=== PATIENT | male | born 1970 | race African-American/Black ===

== ENCOUNTER 2017-04-26 15:09 | Inpatient (IN) | payer OTHER ==
[2017-04-26 17:31] VITALS: BMI 32.8
--- NOTE | 2017-04-26 19:35 | HP ---
COWS - Scale Resting Pulse: 0= [place] 80 or Below Sweatin=Flushed/Facial Moisture Restless Observation: 3= Extraneous Movement Pupil Size: 2= Moderately Dilated Bone or Joint Aches: 2= Severe Diffuse Aches Runny Nose/ Eye Tearin= Runny Nose/Eyes GI Upset > 30mins: 3= Vomiting/Diarrhea Tremor Observation: 2= Slight Tremor Visible Yawning Observation: 2= >3x During Session Anxiety or Irritability: 2=Irritable/Anxious Goose Flesh Skin: 0=Smooth Skin COWS Score: 20 CIWA Score - CIWA Score Nausea/Vomitin Muscle Tremors: 3 Anxiety: 3 Agitation: 3 Paroxysmal Sweats: 2 Orientation: 0-Oriented Tacttile Disturbances: 2-Mild Itch/Numbness/Burn Auditory Disturbances: 2-Mild Harshness/Frighten Visual Disturbances: 2-Mild Sensitivity Headache: 2-Mild CIWA-Ar Total Score: 22 Admission ROS BHS - HPI Chief Complaint: i am tired of using drugs and alcohol Allergies/Adverse Reactions: Allergies Allergy/AdvReac Type Severity Reaction Status Date / Time Penicillins Allergy Verified 04/27/17 01:11 seafood Allergy Mild Uncoded 04/27/17 01:11 History of Present Illness: this 46 years old male with heroin and alcohol dependence,seeking detox,last detox 2011 [facility] hypertension non compliance nicotine dependence longest period of sobriety 5 years Exam Limitations: No Limitations - Ebola screening Have you traveled outside of the country in the last 21 days: No Have you had contact with anyone from an Ebola affected area: No Have you been sick,other than usual withdrawal symptoms: No - Review of Systems Constitutional: Loss of Appetite, Malaise, Night Sweats, Changes in sleep, Unintentional Wgt. Loss, Other EENT: reports: Nose Congestion Respiratory: reports: No Symptoms reported Cardiac: reports: No Symptoms Reported GI: reports: Diarrhea, Nausea, Vomiting, Abdominal cramping : reports: No Symptoms Reported Musculoskeletal: reports: Back Pain, Muscle Pain Integumentary: reports: Dryness Endocrine: reports: No Symptoms Reported Hematology: reports: No Symptoms Reported Psychiatric: reports: No Sypmtoms Reported, Judgement Intact, Mood/Affect Appropiate Patient History - Patient Medical History Hx Anemia: No Hx Asthma: No Hx Chronic Obstructive Pulmonary Disease (COPD): No Hx Cancer: No Hx Cardiac Disorders: No Hx Congestive Heart Failure: No Hx Hypertension: Yes (BP: 147/94 non compliance) Hx Hypercholesterolemia: No Hx Pacemaker: No HX Cerebrovascular Accident: No Hx Seizures: No Hx Dementia: No Hx Diabetes: No Hx Gastrointestinal Disorders: No Hx Liver Disease: No Hx Genitourinary Disorders: No Hx Sexually Transmitted Disorders: No Hx Renal Disease (ESRD): No Hx Thyroid Disease: No Hx Human Immunodeficiency Virus (HIV): No (last 11/18 negative) Hx Hepatitis C: No Hx Depression: No Hx Suicide Attempt: No Hx Schizophrenia: No Other Medical History: no suicidal,no homicidal - Patient Surgical History Past Surgical History: No Hx Neurologic Surgery: No Hx Cataract Extraction: No Hx Cardiac Surgery: No Hx Lung Surgery: No Hx Breast Surgery: No Hx Breast Biopsy: No Hx Abdominal Surgery: No Hx Appendectomy: No Hx Cholecystectomy: No Hx Genitourinary Surgery: No Hx Section: No Hx Orthopedic Surgery: No - PPD History Previous Implant?: Yes Documented Results: Negative w/o proof Date: 05/07/11 Results: 0 mm PPD to be Administered?: Yes - Smoking Cessation Smoking history: Current every day smoker Have you smoked in the past 12 months: Yes Aproximately how many cigarettes per day: 20 Hx Chewing Tobacco Use: No Initiated information on smoking cessation: Yes 'Breaking Loose' booklet given: 04/26/17 - Substance & Tx. History Hx Alcohol Use: Yes Hx Substance Use: Yes Substance Use Type: Alcohol, Heroin Hx Substance Use Treatment: Yes ([facility] 2011) - Substances Abused Alcohol Route: Oral Frequency: Daily Amount used: Beer 6 cans, Liquor 1/2 pint Age of first use: 13 Date of Last Use: 04/26/17 Heroin Route: Inhalation Frequency: Daily Amount used: 15 bags Age of first use: 28 Date of Last Use: 04/26/17 Family Disease History - Family Disease History Family History: Denies Admission Physical Exam S - Vital Signs Vital Signs: Vital Signs - 24 hr 04/26/17 17:26 Temperature 97.8 F Pulse Rate 64 Respiratory 18 Rate Blood Pressure 147/94 - Physical General Appearance: Yes: Moderate Distress, Alcohol on Breath, Tremorous, Sweating, Anxious HEENTM: Yes: Normocephalic, LIBBY, Pharynx Normal Respiratory: Yes: Lungs Clear, Normal Breath Sounds, No Respiratory Distress Neck: Yes: Within Normal Limits, Supple, Trachea in good position Breast: Yes: Within Normal Limits Cardiology: Yes: Within Normal Limits, Regular Rhythm, Regular Rate, S1, S2 Abdominal: Yes: Within Normal Limits, Normal Bowel Sounds, Non Tender, Flat, Soft Genitourinary: Yes: Within Normal Limits Back: Yes: Within Normal Limits, Normal Inspection, Muscle Spasm Musculoskeletal: Yes: full range of Motion, Back pain, Joint Stiffness, Muscle Pain Extremities: Yes: Within Normal Limits, Normal Range of Motion, Tremors Neurological: Yes: horse wrangler II-XII NML intact, Fully Oriented, Alert, Motor Strength 5/5 Integumentary: Yes: Dry Lymphatic: Yes: Within Normal Limits - Diagnostic (1) Alcohol dependence with uncomplicated withdrawal Current Visit: Yes Status: Acute (2) Weight loss Current Visit: Yes Status: Acute (3) Nicotine dependence Current Visit: Yes Status: Acute Qualifiers: Nicotine product type: cigarettes Substance use status: in withdrawal Qualified Code(s): F17.213 - Nicotine dependence, cigarettes, with withdrawal (4) Essential hypertension Current Visit: Yes Status: Acute Cleared for Admission [facility] - Detox or Rehab [facility] Level of Care: Medically Managed Detox Regimen/Protocol: Methadone/Librium [facility] Breath Alcohol Content Breath Alcohol Content: 0 Urine Drug Screen - Results Drug Screen Negative: No Urine Drug Screen Results: CHANDRAKANT-Cocaine, OPI-Opiates
[2017-04-26] MEDS ORDERED: LOPERAMIDE HCL 2 MG CAPSULE PO PRN (19:44)
[2017-04-26] MEDS ORDERED: P-EPHED 60MG/TRIPROLIDI 2.5MG TABLET PO PRN (19:44)
[2017-04-26] MEDS ORDERED: MAG HYDROX/AL HYDROX/SIMETH 30 ML UNIT-DOSE CUP PO PRN (19:44)
[2017-04-26] MEDS ORDERED: IBUPROFEN 400 MG TABLET (FP) PO PRN (19:44)
[2017-04-26] MEDS ORDERED: NICOTINE POLACRILEX 2 MG GUM BC PRN (19:44)
[2017-04-26] MEDS ORDERED: chlordiazePOXIDE HCL 25 MG CAPSULE PO ONE (19:44)
[2017-04-26] MEDS ORDERED: MAGNESIUM CITRATE 300 ML BOTTLE PO PRN (19:44)
[2017-04-26] MEDS ORDERED: guaiFENesin/D-METHORPHAN HB 10 ML UNIT-DOSE CUPS PO PRN (19:44)
[2017-04-26] MEDS ORDERED: ACETAMINOPHEN 325 MG TABLET (FP) PO PRN (19:44)
[2017-04-26] MEDS ORDERED: MENTHOL/PHENOL 1 EACH UD MM PRN (19:44)
[2017-04-26] MEDS ORDERED: chlordiazePOXIDE HCL 25 MG CAPSULE PO PRN (19:44)
[2017-04-26] MEDS ORDERED: MAGNESIUM HYDROX 2400MG/30ML ORAL SUSPENSION 30 ML CUP PO PRN (19:44)
[2017-04-26] MEDS ORDERED: METHADONE HCL 10 MG TABLET (FOR DETOX USE ONLY) PO ONE ×2 (19:48→23:00)
[2017-04-26] MEDS ORDERED: CYCLOBENZAPRINE HCL 10 MG TABLET (FP) PO PRN (19:49)
[2017-04-26] MEDS: NICOTINE 21 MG/24 HOURS TOPICAL PATCH TD SCH (20:24)
[2017-04-26] MEDS: LISINOPRIL 20 MG TABLET (FP) PO SCH (20:26)
[2017-04-26] MEDS: cloNIDine HCL 0.1 MG TABLET PO SCH (22:28)
[2017-04-26] MEDS: THIAMINE HCL 100 MG TABLET (FP) PO SCH (22:28)
[2017-04-26] MEDS: chlordiazePOXIDE HCL 25 MG CAPSULE PO SCH (22:29)
[2017-04-26 23:16] LABS: URINE APPEARANCE CLEAR; URINE BILIRUBIN NEGATIVE (NEGATIVE); URINE BLOOD NEGATIVE (NEGATIVE); URINE COLOR YELLOW; URINE GLUCOSE (UA) NEGATIVE (NEGATIVE); URINE KETONE TRACE (NEGATIVE); URINE LEUK ESTERASE NEGATIVE (NEGATIVE); URINE NITRITE NEGATIVE (NEGATIVE); URINE PROTEIN NEGATIVE (NEGATIVE); URINE UROBILINOGEN NEGATIVE mg/dL (0.2-1.0)
[2017-04-27] MEDS: chlordiazePOXIDE HCL 25 MG CAPSULE PO SCH ×4 (05:31→22:20)
[2017-04-27] MEDS ORDERED: METHADONE HCL 10 MG TABLET (FOR DETOX USE ONLY) PO ONE (10:00)
[2017-04-27] MEDS: cloNIDine HCL 0.1 MG TABLET PO SCH ×2 (10:46→22:20)
[2017-04-27] MEDS: PRENATAL VITAMINS W/ FOLIC ACID TABLET (FP) PO SCH (10:46)
[2017-04-27] MEDS: LISINOPRIL 20 MG TABLET (FP) PO SCH (10:46)
[2017-04-27] MEDS: NICOTINE 21 MG/24 HOURS TOPICAL PATCH TD SCH (10:55)
--- NOTE | 2017-04-27 11:19 | PN ---
[facility] CIWA - CIWA Score Nausea/Vomitin-No Nausea/No Vomiting Muscle Tremors: 4-Moderate,w/Arms Extend Anxiety: 4-Mod. Anxious/Guarded Agitation: 4-Moderately Restless Paroxysmal Sweats: 1-Minimal Palms Moist Orientation: 0-Oriented Tacttile Disturbances: 3-Moderate Itch/Numb/Burn Auditory Disturbances: 0-None Visual Disturbances: 0-None Headache: 0-None Present CIWA-Ar Total Score: 16 BHS Progress Note (SOAP) Subjective: ANXIETY,SWEATS/CHILLS,FATIGUE. Objective: 04/27/17 11:19 Vital Signs Temperature 97.8 F 04/27/17 09:58 Pulse Rate 63 04/27/17 09:58 Respiratory Rate 20 04/27/17 09:58 Blood Pressure 142/102 04/27/17 09:58 O2 Sat by Pulse Oximetry (%) Laboratory Last Values Urine Color Yellow 04/26/17 19:56 Urine Appearance Clear 04/26/17 19:56 Urine pH 5.0 (5.0-8.0) 04/26/17 19:56 Ur Specific [place] >= 1.030 (1.005-1.025) H 04/26/17 19:56 Urine Protein Negative (NEGATIVE) 04/26/17 19:56 Urine Glucose (UA) Negative (NEGATIVE) 04/26/17 19:56 Urine Ketones Trace (NEGATIVE) H 04/26/17 19:56 Urine Blood Negative (NEGATIVE) 04/26/17 19:56 Urine Nitrite Negative (NEGATIVE) 04/26/17 19:56 Urine Bilirubin Negative (NEGATIVE) 04/26/17 19:56 Urine Urobilinogen Negative mg/dL (0.2-1.0) 04/26/17 19:56 Ur Leukocyte Esterase Negative (NEGATIVE) 04/26/17 19:56 LABS PENDING Assessment: 04/27/17 11:19 WITHDRAWAL SX Plan: CONTINUE DETOX
--- NOTE | 2017-04-27 11:57 | EKG ---
Test Reason : Blood Pressure : / mmHG Vent. Rate : 063 BPM Atrial Rate : 063 BPM P-R Int : 162 ms QRS Dur : 090 ms QT Int : 430 ms P-R-T Axes : 071 050 061 degrees QTc Int : 440 ms NORMAL SINUS RHYTHM NONSPECIFIC T WAVE ABNORMALITY ABNORMAL ECG NO PREVIOUS ECGS AVAILABLE Confirmed by TIMOTHY NEFF, SIMEON ([id number]) on 04/27/2017 11:56:58 AM Referred By: Confirmed By:SIMEON AGUIRRE MD
[2017-04-27] MEDS: THIAMINE HCL 100 MG TABLET (FP) PO SCH (22:20)
[2017-04-28] MEDS: chlordiazePOXIDE HCL 25 MG CAPSULE PO SCH ×3 (05:42→17:29)
[2017-04-28] MEDS ORDERED: METHADONE HCL 5 MG TABLET (FOR DETOX USE ONLY) PO ONE (10:00)
[2017-04-28 10:12] LABS: MCH 28.8 pg (25.7-33.7); MCHC 32.4 g/dl (32.0-35.9); MEAN CELL VOLUME 89.1 fl (80-96); MEAN PLT VOLUME 8.7 fl (7.5-11.1); PLATELET COUNT 204 K/MM3 (134-434); WHITE BLOOD COUNT 3.3 K/mm3 (4.0-10.0)
[2017-04-28] MEDS: PRENATAL VITAMINS W/ FOLIC ACID TABLET (FP) PO SCH (10:26)
[2017-04-28] MEDS: LISINOPRIL 20 MG TABLET (FP) PO SCH (10:26)
[2017-04-28] MEDS: NICOTINE 21 MG/24 HOURS TOPICAL PATCH TD SCH (10:26)
[2017-04-28] MEDS: cloNIDine HCL 0.1 MG TABLET PO SCH ×2 (10:26→22:33)
[2017-04-28 10:58] LABS: ANION GAP 5 (8-16); BILIRUBIN,TOTAL 0.3 mg/dL (0.2-1.0); CALCIUM 8.7 mg/dL (8.5-10.1); CO2 30 mmol/L (21-32); CREATININE 0.9 mg/dL (0.7-1.3); GLUCOSE,RANDOM 84 mg/dL (74-106); SGOT/AST 15 U/L (15-37); SGPT/ALT 18 U/L (12-78); TOT PROT 5.7 g/dl (6.4-8.2)
[2017-04-28 10:59] LABS: ALK PHOS 60 U/L (45-117)
--- NOTE | 2017-04-28 11:20 | PN ---
[facility] CIWA - CIWA Score Nausea/Vomitin-No Nausea/No Vomiting Muscle Tremors: 4-Moderate,w/Arms Extend Anxiety: 4-Mod. Anxious/Guarded Agitation: 4-Moderately Restless Paroxysmal Sweats: 1-Minimal Palms Moist Orientation: 0-Oriented Tacttile Disturbances: 3-Moderate Itch/Numb/Burn Auditory Disturbances: 0-None Visual Disturbances: 0-None Headache: 0-None Present CIWA-Ar Total Score: 16 S Progress Note (SOAP) Subjective: ANXIETY,SWEATS,TREMORS,INTERMITTENT SLEEP. Objective: 04/28/17 11:18 Vital Signs Temperature 97.4 F L 04/28/17 09:17 Pulse Rate 61 04/28/17 09:17 Respiratory Rate 18 04/28/17 09:17 Blood Pressure 131/90 04/28/17 09:17 O2 Sat by Pulse Oximetry (%) Laboratory Last Values WBC 3.3 K/mm3 (4.0-10.0) L 04/28/17 07:00 RBC 4.69 M/mm3 (4.00-5.60) 04/28/17 07:00 Hgb 13.5 GM/dL (11.7-16.9) 04/28/17 07:00 Hct 41.8 % (35.4-49) 04/28/17 07:00 MCV 89.1 fl (80-96) 04/28/17 07:00 MCH 28.8 pg (25.7-33.7) 04/28/17 07:00 MCHC 32.4 g/dl (32.0-35.9) 04/28/17 07:00 RDW 15.0 % (11.9-15.9) 04/28/17 07:00 Plt Count 204 K/MM3 (134-434) D 04/28/17 07:00 MPV 8.7 fl (7.5-11.1) D 04/28/17 07:00 Sodium 144 mmol/L (136-145) 04/28/17 06:00 Potassium 4.0 mmol/L (3.5-5.1) 04/28/17 06:00 Chloride 109 mmol/L (98-107) H 04/28/17 06:00 Carbon Dioxide 30 mmol/L (21-32) 04/28/17 06:00 Anion Gap 5 (8-16) L 04/28/17 06:00 BUN 10 mg/dL (7-18) 04/28/17 06:00 Creatinine 0.9 mg/dL (0.7-1.3) D 04/28/17 06:00 Creat Clearance w eGFR > 60 (>60) 04/28/17 06:00 Random Glucose 84 mg/dL (74-106) D 04/28/17 06:00 Calcium 8.7 mg/dL (8.5-10.1) 04/28/17 06:00 Total Bilirubin 0.3 mg/dL (0.2-1.0) D 04/28/17 06:00 AST 15 U/L (15-37) D 04/28/17 06:00 ALT 18 U/L (12-78) D 04/28/17 06:00 Alkaline Phosphatase 60 U/L (45-117) D 04/28/17 06:00 Total Protein 5.7 g/dl (6.4-8.2) L D 04/28/17 06:00 Albumin 3.0 g/dl (3.4-5.0) L D 04/28/17 06:00 Urine Color Yellow 04/26/17 19:56 Urine Appearance Clear 04/26/17 19:56 Urine pH 5.0 (5.0-8.0) 04/26/17 19:56 Ur Specific [place] >= 1.030 (1.005-1.025) H 04/26/17 19:56 Urine Protein Negative (NEGATIVE) 04/26/17 19:56 Urine Glucose (UA) Negative (NEGATIVE) 04/26/17 19:56 Urine Ketones Trace (NEGATIVE) H 04/26/17 19:56 Urine Blood Negative (NEGATIVE) 04/26/17 19:56 Urine Nitrite Negative (NEGATIVE) 04/26/17 19:56 Urine Bilirubin Negative (NEGATIVE) 04/26/17 19:56 Urine Urobilinogen Negative mg/dL (0.2-1.0) 04/26/17 19:56 Ur Leukocyte Esterase Negative (NEGATIVE) 04/26/17 19:56 Assessment: 04/28/17 11:18 WITHDRAWAL SX Plan: CONTINUE DETOX
[2017-04-28] MEDS: chlordiazePOXIDE 5 MG CAPSULE PO SCH (22:32)
[2017-04-28] MEDS: THIAMINE HCL 100 MG TABLET (FP) PO SCH (22:32)
[2017-04-28] MEDS: diphenhydrAMINE HCL 50 MG CAPSULE PO PRN (22:33)
[2017-04-29] MEDS: chlordiazePOXIDE 5 MG CAPSULE PO SCH ×3 (05:34→17:57)
[2017-04-29] MEDS ORDERED: METHADONE HCL 5 MG TABLET (FOR DETOX USE ONLY) PO ONE (10:00)
[2017-04-29] MEDS: LISINOPRIL 20 MG TABLET (FP) PO SCH (10:19)
[2017-04-29] MEDS: PRENATAL VITAMINS W/ FOLIC ACID TABLET (FP) PO SCH (10:19)
[2017-04-29] MEDS: cloNIDine HCL 0.1 MG TABLET PO SCH ×2 (10:19→22:24)
[2017-04-29] MEDS: NICOTINE 21 MG/24 HOURS TOPICAL PATCH TD SCH (10:19)
--- NOTE | 2017-04-29 15:46 | PN ---
BHS Progress Note (SOAP) Subjective: Fatigue, Tremors. Objective: PT. A & O X 3, OBSERVED AMBULATING ON UNIT. NO ACUTE DISTRESS. PT. DENIES CHEST PAIN. 04/29/17 15:43 Vital Signs Temperature 96.2 F L 04/29/17 13:43 Pulse Rate 62 04/29/17 13:43 Respiratory Rate 19 04/29/17 13:43 Blood Pressure 116/70 04/29/17 13:43 O2 Sat by Pulse Oximetry (%) Laboratory Tests 04/26/17 04/28/17 04/28/17 19:56 06:00 07:00 WBC 3.3 L RBC 4.69 Hgb 13.5 Hct 41.8 MCV 89.1 MCH 28.8 MCHC 32.4 RDW 15.0 Plt Count 204 D MPV 8.7 D Sodium 144 Potassium 4.0 Chloride 109 H Carbon Dioxide 30 Anion Gap 5 L BUN 10 Creatinine 0.9 D Creat Clearance w eGFR > 60 Random Glucose 84 D Calcium 8.7 Total Bilirubin 0.3 D AST 15 D ALT 18 D Alkaline Phosphatase 60 D Total Protein 5.7 L D Albumin 3.0 L D Urine Color Yellow Urine Appearance Clear Urine pH 5.0 Ur Specific [place] >= 1.030 H Urine Protein Negative Urine Glucose (UA) Negative Urine Ketones Trace H Urine Blood Negative Urine Nitrite Negative Urine Bilirubin Negative Urine Urobilinogen Negative Ur Leukocyte Esterase Negative RPR Titer 04/28/17 07:00 WBC RBC Hgb Hct MCV MCH MCHC RDW Plt Count MPV Sodium Potassium Chloride Carbon Dioxide Anion Gap BUN Creatinine Creat Clearance w eGFR Random Glucose Calcium Total Bilirubin AST ALT Alkaline Phosphatase Total Protein Albumin Urine Color Urine Appearance Urine pH Ur Specific [place] Urine Protein Urine Glucose (UA) Urine Ketones Urine Blood Urine Nitrite Urine Bilirubin Urine Urobilinogen Ur Leukocyte Esterase RPR Titer Nonreactive LABS NOTED. Assessment: 04/29/17 15:44 WITHDRAWAL SYMPTOMS. Plan: CONTINUE DETOX.
[2017-04-29] MEDS: diphenhydrAMINE HCL 50 MG CAPSULE PO PRN (22:24)
[2017-04-29] MEDS: THIAMINE HCL 100 MG TABLET (FP) PO SCH (22:24)
[2017-04-29] MEDS: chlordiazePOXIDE HCL 10 MG CAPSULE PO SCH (22:24)
[2017-04-30] MEDS: chlordiazePOXIDE HCL 10 MG CAPSULE PO SCH ×3 (05:35→17:11)
[2017-04-30] MEDS ORDERED: METHADONE HCL 10 MG TABLET (FOR DETOX USE ONLY) PO ONE (10:00)
[2017-04-30] MEDS: cloNIDine HCL 0.1 MG TABLET PO SCH ×2 (10:13→21:53)
[2017-04-30] MEDS: NICOTINE 21 MG/24 HOURS TOPICAL PATCH TD SCH (10:13)
[2017-04-30] MEDS: LISINOPRIL 20 MG TABLET (FP) PO SCH (10:14)
[2017-04-30] MEDS: PRENATAL VITAMINS W/ FOLIC ACID TABLET (FP) PO SCH (10:14)
--- NOTE | 2017-04-30 14:16 | PN ---
BHS Progress Note (SOAP) Subjective: Chills, tremor, diarrhea, anxious, interrupted sleep Objective: 04/30/17 14:13 Last Vital Signs Temp Pulse Resp BP Pulse Ox 97.4 F L 60 18 115/78 04/30/17 13:41 04/30/17 13:41 04/30/17 13:41 04/30/17 13:41 Laboratory Tests 04/26/17 04/28/17 04/28/17 19:56 06:00 07:00 WBC 3.3 L RBC 4.69 Hgb 13.5 Hct 41.8 MCV 89.1 MCH 28.8 MCHC 32.4 RDW 15.0 Plt Count 204 D MPV 8.7 D Sodium 144 Potassium 4.0 Chloride 109 H Carbon Dioxide 30 Anion Gap 5 L BUN 10 Creatinine 0.9 D Creat Clearance w eGFR > 60 Random Glucose 84 D Calcium 8.7 Total Bilirubin 0.3 D AST 15 D ALT 18 D Alkaline Phosphatase 60 D Total Protein 5.7 L D Albumin 3.0 L D Urine Color Yellow Urine Appearance Clear Urine pH 5.0 Ur Specific [place] >= 1.030 H Urine Protein Negative Urine Glucose (UA) Negative Urine Ketones Trace H Urine Blood Negative Urine Nitrite Negative Urine Bilirubin Negative Urine Urobilinogen Negative Ur Leukocyte Esterase Negative RPR Titer 04/28/17 07:00 WBC RBC Hgb Hct MCV MCH MCHC RDW Plt Count MPV Sodium Potassium Chloride Carbon Dioxide Anion Gap BUN Creatinine Creat Clearance w eGFR Random Glucose Calcium Total Bilirubin AST ALT Alkaline Phosphatase Total Protein Albumin Urine Color Urine Appearance Urine pH Ur Specific [place] Urine Protein Urine Glucose (UA) Urine Ketones Urine Blood Urine Nitrite Urine Bilirubin Urine Urobilinogen Ur Leukocyte Esterase RPR Titer Nonreactive Labs noted Assessment: 04/30/17 14:15 Withdrawal symptoms Plan: Continue detox Encouraged to drink lots of water for hydration, water pitcher ordered
[2017-04-30] MEDS: THIAMINE HCL 100 MG TABLET (FP) PO SCH (21:53)
[2017-04-30] MEDS: diphenhydrAMINE HCL 50 MG CAPSULE PO PRN (22:05)
[2017-05-01] MEDS ORDERED: METHADONE HCL 5 MG TABLET (FOR DETOX USE ONLY) PO ONE (06:00)
[2017-05-01] MEDS: cloNIDine HCL 0.1 MG TABLET PO SCH ×2 (10:16→22:27)
[2017-05-01] MEDS: NICOTINE 21 MG/24 HOURS TOPICAL PATCH TD SCH (10:16)
[2017-05-01] MEDS: PRENATAL VITAMINS W/ FOLIC ACID TABLET (FP) PO SCH (10:16)
[2017-05-01] MEDS: LISINOPRIL 20 MG TABLET (FP) PO SCH (10:16)
--- NOTE | 2017-05-01 15:07 | PN ---
BHS Progress Note (SOAP) Subjective: Sweating,interrupted sleepr,estless Objective: 05/01/17 15:06 Vital Signs - 8 hr 05/01/17 05/01/17 09:19 13:21 Temperature 97.3 F L 98.2 F Pulse Rate 56 L 69 Respiratory 16 18 Rate Blood Pressure 120/80 103/70 Laboratory Last Values WBC 3.3 K/mm3 (4.0-10.0) L 04/28/17 07:00 RBC 4.69 M/mm3 (4.00-5.60) 04/28/17 07:00 Hgb 13.5 GM/dL (11.7-16.9) 04/28/17 07:00 Hct 41.8 % (35.4-49) 04/28/17 07:00 MCV 89.1 fl (80-96) 04/28/17 07:00 MCH 28.8 pg (25.7-33.7) 04/28/17 07:00 MCHC 32.4 g/dl (32.0-35.9) 04/28/17 07:00 RDW 15.0 % (11.9-15.9) 04/28/17 07:00 Plt Count 204 K/MM3 (134-434) D 04/28/17 07:00 MPV 8.7 fl (7.5-11.1) D 04/28/17 07:00 Sodium 144 mmol/L (136-145) 04/28/17 06:00 Potassium 4.0 mmol/L (3.5-5.1) 04/28/17 06:00 Chloride 109 mmol/L (98-107) H 04/28/17 06:00 Carbon Dioxide 30 mmol/L (21-32) 04/28/17 06:00 Anion Gap 5 (8-16) L 04/28/17 06:00 BUN 10 mg/dL (7-18) 04/28/17 06:00 Creatinine 0.9 mg/dL (0.7-1.3) D 04/28/17 06:00 Creat Clearance w eGFR > 60 (>60) 04/28/17 06:00 Random Glucose 84 mg/dL (74-106) D 04/28/17 06:00 Calcium 8.7 mg/dL (8.5-10.1) 04/28/17 06:00 Total Bilirubin 0.3 mg/dL (0.2-1.0) D 04/28/17 06:00 AST 15 U/L (15-37) D 04/28/17 06:00 ALT 18 U/L (12-78) D 04/28/17 06:00 Alkaline Phosphatase 60 U/L (45-117) D 04/28/17 06:00 Total Protein 5.7 g/dl (6.4-8.2) L D 04/28/17 06:00 Albumin 3.0 g/dl (3.4-5.0) L D 04/28/17 06:00 Urine Color Yellow 04/26/17 19:56 Urine Appearance Clear 04/26/17 19:56 Urine pH 5.0 (5.0-8.0) 04/26/17 19:56 Ur Specific [place] >= 1.030 (1.005-1.025) H 04/26/17 19:56 Urine Protein Negative (NEGATIVE) 04/26/17 19:56 Urine Glucose (UA) Negative (NEGATIVE) 04/26/17 19:56 Urine Ketones Trace (NEGATIVE) H 04/26/17 19:56 Urine Blood Negative (NEGATIVE) 04/26/17 19:56 Urine Nitrite Negative (NEGATIVE) 04/26/17 19:56 Urine Bilirubin Negative (NEGATIVE) 04/26/17 19:56 Urine Urobilinogen Negative mg/dL (0.2-1.0) 04/26/17 19:56 Ur Leukocyte Esterase Negative (NEGATIVE) 04/26/17 19:56 RPR Titer Nonreactive (NONREACTIVE) 04/28/17 07:00 labs noted Assessment: 05/01/17 15:06 Withdrawal sx. Plan: Continue detox
[2017-05-01] MEDS: THIAMINE HCL 100 MG TABLET (FP) PO SCH (22:27)
[2017-05-01] MEDS: diphenhydrAMINE HCL 50 MG CAPSULE PO PRN (22:27)
[2017-05-02 06:12] VITALS: BP 111/79; PULSE 64; TEMP 97.5
--- NOTE | 2017-05-02 13:21 | DS ---
[facility] Detox Discharge Summary Admission Date: 04/26/17 Discharge Date: 05/02/17 - History Present History: Alcohol Dependence Pertinent Past History: HTN - Physical Exam Results Vital Signs: Vital Signs Temperature 97.5 F L 05/02/17 06:11 Pulse Rate 64 05/02/17 06:11 Respiratory Rate 18 05/02/17 06:11 Blood Pressure 111/79 05/02/17 06:11 O2 Sat by Pulse Oximetry (%) Pertinent Admission Physical Exam Findings: Withdrawal sx. Laboratory Last Values WBC 3.3 K/mm3 (4.0-10.0) L 04/28/17 07:00 RBC 4.69 M/mm3 (4.00-5.60) 04/28/17 07:00 Hgb 13.5 GM/dL (11.7-16.9) 04/28/17 07:00 Hct 41.8 % (35.4-49) 04/28/17 07:00 MCV 89.1 fl (80-96) 04/28/17 07:00 MCH 28.8 pg (25.7-33.7) 04/28/17 07:00 MCHC 32.4 g/dl (32.0-35.9) 04/28/17 07:00 RDW 15.0 % (11.9-15.9) 04/28/17 07:00 Plt Count 204 K/MM3 (134-434) D 04/28/17 07:00 MPV 8.7 fl (7.5-11.1) D 04/28/17 07:00 Sodium 144 mmol/L (136-145) 04/28/17 06:00 Potassium 4.0 mmol/L (3.5-5.1) 04/28/17 06:00 Chloride 109 mmol/L (98-107) H 04/28/17 06:00 Carbon Dioxide 30 mmol/L (21-32) 04/28/17 06:00 Anion Gap 5 (8-16) L 04/28/17 06:00 BUN 10 mg/dL (7-18) 04/28/17 06:00 Creatinine 0.9 mg/dL (0.7-1.3) D 04/28/17 06:00 Creat Clearance w eGFR > 60 (>60) 04/28/17 06:00 Random Glucose 84 mg/dL (74-106) D 04/28/17 06:00 Calcium 8.7 mg/dL (8.5-10.1) 04/28/17 06:00 Total Bilirubin 0.3 mg/dL (0.2-1.0) D 04/28/17 06:00 AST 15 U/L (15-37) D 04/28/17 06:00 ALT 18 U/L (12-78) D 04/28/17 06:00 Alkaline Phosphatase 60 U/L (45-117) D 04/28/17 06:00 Total Protein 5.7 g/dl (6.4-8.2) L D 04/28/17 06:00 Albumin 3.0 g/dl (3.4-5.0) L D 04/28/17 06:00 Urine Color Yellow 04/26/17 19:56 Urine Appearance Clear 04/26/17 19:56 Urine pH 5.0 (5.0-8.0) 04/26/17 19:56 Ur Specific [place] >= 1.030 (1.005-1.025) H 04/26/17 19:56 Urine Protein Negative (NEGATIVE) 04/26/17 19:56 Urine Glucose (UA) Negative (NEGATIVE) 04/26/17 19:56 Urine Ketones Trace (NEGATIVE) H 04/26/17 19:56 Urine Blood Negative (NEGATIVE) 04/26/17 19:56 Urine Nitrite Negative (NEGATIVE) 04/26/17 19:56 Urine Bilirubin Negative (NEGATIVE) 04/26/17 19:56 Urine Urobilinogen Negative mg/dL (0.2-1.0) 04/26/17 19:56 Ur Leukocyte Esterase Negative (NEGATIVE) 04/26/17 19:56 RPR Titer Nonreactive (NONREACTIVE) 04/28/17 07:00 labs noted - Treatment Hospital Course: Detox Protocol Followed, Detoxed Safely, Responded well, Discharged Condition Good, Rehab Referral Accepted Patient has Accepted a Rehab Referral to: [facility] - Medication Discharge Medications: Ambulatory Orders Lisinopril [Prinivil] 20 mg PO DAILY 04/26/17 - Diagnosis (1) Alcohol dependence with uncomplicated withdrawal Status: Acute (2) Essential hypertension Status: Acute (3) Nicotine dependence Status: Acute Qualifiers: Nicotine product type: cigarettes Substance use status: in withdrawal Qualified Code(s): F17.213 - Nicotine dependence, cigarettes, with withdrawal - AMA Did Patient Leave Against Medical Advice: No
== END 2017-05-02 09:24 | disposition home or self-care (01) | DRG 775 ==
LOC: YASAS 15:09 → Y3N 19:17
PROVIDERS: ADMIT Internal Medicine; ATTEND Internal Medicine
PROC: HZ2ZZZZ Detoxification Services for Substance Abuse Treatment (ICD-10-PCS; principal; 2017-04-26)
DX: F10.230 Alcohol dependence with withdrawal, uncomplicated (principal); F17.213 Nicotine dependence, cigarettes, with withdrawal; I10 Essential (primary) hypertension; Z87.898 Personal history of other specified conditions; Z91.14 Patient's other noncompliance with medication regimen
CPT/HCPCS: 36415; 80053; 81003; 85027; 86593; 93005; 93010

== ENCOUNTER 2017-07-25 12:57 | Inpatient (IN) | payer OTHER ==
[2017-07-25 15:38] VITALS: BMI 30.4
--- NOTE | 2017-07-25 17:39 | HP ---
COWS - Scale Resting Pulse: 0= [place] 80 or Below Sweatin= Chills/Flushing Restless Observation: 3= Extraneous Movement Pupil Size: 0= Normal to Room Light Bone or Joint Aches: 2= Severe Diffuse Aches Runny Nose/ Eye Tearin= Nasal Congestion GI Upset > 30mins: 3= Vomiting/Diarrhea Tremor Observation: 2= Slight Tremor Visible Yawning Observation: 0= None Anxiety or Irritability: 2=Irritable/Anxious Goose Flesh Skin: 0=Smooth Skin COWS Score: 14 CIWA Score - CIWA Score Nausea/Vomitin Muscle Tremors: 3 Anxiety: 4-Mod. Anxious/Guarded Agitation: 4-Moderately Restless Paroxysmal Sweats: 1-Minimal Palms Moist Orientation: 0-Oriented Tacttile Disturbances: 0-None Auditory Disturbances: 0-None Visual Disturbances: 0-None Headache: 0-None Present CIWA-Ar Total Score: 14 Admission ROS BHS - HPI Chief Complaint: withdrawal sx Allergies/Adverse Reactions: Allergies Allergy/AdvReac Type Severity Reaction Status Date / Time Penicillins Allergy Verified 07/25/17 17:09 seafood Allergy Mild Uncoded 07/25/17 17:09 History of Present Illness: 47 years old male with long history of alcohol nicotine opiate xanax cocaine dependence denies medical issue denies mental illness refuses to meet with the psychiatrist while in detox is admitted to detox Exam Limitations: No Limitations - Ebola screening Have you traveled outside of the country in the last 21 days: No Have you had contact with anyone from an Ebola affected area: No Have you been sick,other than usual withdrawal symptoms: No Do you have a fever: No - Review of Systems Constitutional: Changes in sleep, Weight Stable EENT: reports: No Symptoms Reported Respiratory: reports: No Symptoms reported Cardiac: reports: No Symptoms Reported GI: reports: Nausea, Poor Fluid Intake, Vomiting, Abdominal cramping : reports: No Symptoms Reported Musculoskeletal: reports: Back Pain, Joint Pain, Muscle Pain, Neck Pain Integumentary: reports: No Symptoms Reported Neuro: reports: Tremors Endocrine: reports: No Symptoms Reported Hematology: reports: No Symptoms Reported Psychiatric: reports: Judgement Intact, Mood/Affect Appropiate, Orientated x3 Other Systems: Reviewed and Negative Patient History - Patient Medical History Hx Anemia: No Hx Asthma: No Hx Chronic Obstructive Pulmonary Disease (COPD): No Hx Cancer: No Hx Cardiac Disorders: No Hx Congestive Heart Failure: No Hx Hypertension: Yes (last dose 2-3 months ago) Hx Hypercholesterolemia: No Hx Pacemaker: No HX Cerebrovascular Accident: No Hx Seizures: No Hx Dementia: No Hx Diabetes: No Hx Gastrointestinal Disorders: No Hx Liver Disease: No Hx Genitourinary Disorders: No Hx Sexually Transmitted Disorders: No Hx Renal Disease (ESRD): No Hx Thyroid Disease: No Hx Human Immunodeficiency Virus (HIV): No (last 11/18 negative) Hx Hepatitis C: No Hx Depression: No Hx Suicide Attempt: No Hx Bipolar Disorder: No Hx Schizophrenia: No - Patient Surgical History Past Surgical History: No Hx Neurologic Surgery: No Hx Cataract Extraction: No Hx Cardiac Surgery: No Hx Lung Surgery: No Hx Breast Surgery: No Hx Breast Biopsy: No Hx Abdominal Surgery: No Hx Appendectomy: No Hx Cholecystectomy: No Hx Genitourinary Surgery: No Hx Orthopedic Surgery: No - PPD History Previous Implant?: Yes Documented Results: Negative w/proof Implanted On Prior [facility] Admission?: Yes Date: 04/28/17 Results: 0 mm PPD to be Administered?: No - Smoking Cessation Smoking history: Current every day smoker Have you smoked in the past 12 months: Yes Aproximately how many cigarettes per day: 10 Cigars Per Day: 0 Hx Chewing Tobacco Use: No Initiated information on smoking cessation: Yes 'Breaking Loose' booklet given: 07/25/17 - Substance & Tx. History Hx Alcohol Use: Yes Hx Substance Use: Yes Substance Use Type: Alcohol, Cocaine, Heroin, Tranquilizers Hx Substance Use Treatment: Yes (04/2017 [facility] - Substances Abused Heroin Route: Inhalation Frequency: Daily Amount used: 20 bags Age of first use: 28 Date of Last Use: 07/25/17 Alprazolam (Xanax) Route: Oral Frequency: Daily Amount used: 2mg Age of first use: 38 Date of Last Use: 07/25/17 Alcohol Route: Oral Frequency: Daily Amount used: 1 and 1/2 pints cognac Age of first use: 11 Date of Last Use: 07/25/17 Cocaine Route: Inhalation Frequency: 1-2 times per week Amount used: $20 Age of first use: 38 Date of Last Use: 07/25/17 Family Disease History - Family Disease History Family Disease History: Heart Disease: Mother, Other: Father (/alcohol) , Brother (no brother) Admission Physical Exam [facility] - Vital Signs Vital Signs: Vital Signs - 24 hr 07/25/17 15:36 Temperature 96.2 F L Pulse Rate 78 Respiratory 20 Rate Blood Pressure 146/84 - Physical General Appearance: Yes: Nourished, Appropriately Dressed, Mild Distress, Tremorous, Irritable, Sweating, Anxious HEENTM: Yes: Hearing grossly Normal, Normal ENT Inspection, Normocephalic, Normal Voice Respiratory: Yes: Chest Non-Tender, Lungs Clear, Normal Breath Sounds, No Respiratory Distress, No Accessory Muscle Use Neck: Yes: Supple, Trachea in good position Breast: Yes: Breasts Symetrical Cardiology: Yes: Regular Rhythm, Regular Rate, S1, S2 Abdominal: Yes: Normal Bowel Sounds Genitourinary: Yes: Within Normal Limits Back: Yes: Normal Inspection Musculoskeletal: Yes: full range of Motion, Gait Steady, Back pain, Muscle Pain Extremities: Yes: Normal Inspection, Normal Range of Motion, Non-Tender, Tremors Neurological: Yes: Fully Oriented, Alert, Motor Strength 5/5, Normal Mood/Affect , Normal Response Integumentary: Yes: Warm Lymphatic: Yes: Within Normal Limits - Diagnostic (1) Alcohol dependence with uncomplicated withdrawal Current Visit: Yes Status: Acute (2) Nicotine dependence Current Visit: Yes Status: Acute Qualifiers: Nicotine product type: cigarettes Substance use status: in withdrawal Qualified Code(s): F17.213 - Nicotine dependence, cigarettes, with withdrawal; F17.213 - Nicotine dependence, cigarettes, with withdrawal (3) Opioid dependence with withdrawal Current Visit: Yes Status: Acute (4) Cocaine dependence, uncomplicated Current Visit: Yes Status: Chronic (5) Sedative, hypnotic or anxiolytic dependence, uncomplicated Current Visit: Yes Status: Acute Cleared for Admission [facility] - Detox or Rehab [facility] Level of Care: Medically Managed Detox Regimen/Protocol: Methadone/Librium [facility] Breath Alcohol Content Breath Alcohol Content: 0 Urine Drug Screen - Results Drug Screen Negative: No Urine Drug Screen Results: CHANDRAKANT-Cocaine, OPI-Opiates, BZO-Benzodiazepines, MTD- Methadone
[2017-07-25] MEDS ORDERED: MENTHOL/PHENOL 1 EACH UD MM PRN (17:42)
[2017-07-25] MEDS ORDERED: guaiFENesin/D-METHORPHAN HB 10 ML UNIT-DOSE CUPS PO PRN (17:42)
[2017-07-25] MEDS ORDERED: ACETAMINOPHEN 325 MG TABLET (FP) PO PRN (17:42)
[2017-07-25] MEDS ORDERED: IBUPROFEN 400 MG TABLET (FP) PO PRN (17:42)
[2017-07-25] MEDS ORDERED: LOPERAMIDE HCL 2 MG CAPSULE PO PRN (17:42)
[2017-07-25] MEDS ORDERED: MAGNESIUM HYDROX 2400MG/30ML ORAL SUSPENSION 30 ML CUP PO PRN (17:42)
[2017-07-25] MEDS ORDERED: chlordiazePOXIDE HCL 25 MG CAPSULE PO PRN (17:42)
[2017-07-25] MEDS ORDERED: MAGNESIUM CITRATE 300 ML BOTTLE PO PRN (17:42)
[2017-07-25] MEDS ORDERED: P-EPHED 60MG/TRIPROLIDI 2.5MG TABLET PO PRN (17:42)
[2017-07-25] MEDS ORDERED: diphenhydrAMINE HCL 50 MG CAPSULE PO PRN (17:42)
[2017-07-25] MEDS ORDERED: MAG HYDROX/AL HYDROX/SIMETH 30 ML UNIT-DOSE CUP PO PRN (17:42)
[2017-07-25] MEDS ORDERED: METHADONE HCL 10 MG TABLET (FOR DETOX USE ONLY) PO ONE ×2 (18:15→23:00)
[2017-07-25 21:12] LABS: URINE APPEARANCE CLEAR; URINE BILIRUBIN NEGATIVE (NEGATIVE); URINE BLOOD NEGATIVE (NEGATIVE); URINE COLOR YELLOW; URINE GLUCOSE (UA) NEGATIVE (NEGATIVE); URINE KETONE TRACE (NEGATIVE); URINE NITRITE NEGATIVE (NEGATIVE); URINE PROTEIN NEGATIVE (NEGATIVE); URINE UROBILINOGEN NEGATIVE mg/dL (0.2-1.0)
[2017-07-25] MEDS: chlordiazePOXIDE HCL 25 MG CAPSULE PO SCH (22:19)
[2017-07-25] MEDS: THIAMINE HCL 100 MG TABLET (FP) PO SCH (22:19)
[2017-07-25 22:37] LABS: URINE LEUK ESTERASE Negative (NEGATIVE)
[2017-07-26] MEDS: chlordiazePOXIDE HCL 25 MG CAPSULE PO SCH ×4 (05:22→22:15)
[2017-07-26] MEDS ORDERED: METHADONE HCL 10 MG TABLET (FOR DETOX USE ONLY) PO SCH (10:00)
[2017-07-26 10:07] LABS: ALBUMIN 2.9 g/dl (3.4-5.0); ANION GAP 5 (8-16); CALCIUM 8.2 mg/dL (8.5-10.1); CO2 32 mmol/L (21-32); GLUCOSE,RANDOM 81 mg/dL (74-106)
[2017-07-26 10:09] LABS: MCH 28.9 pg (25.7-33.7); MCHC 32.6 g/dl (32.0-35.9); MEAN CELL VOLUME 88.7 fl (80-96); MEAN PLT VOLUME 8.3 fl (7.5-11.1); PLATELET COUNT 187 K/MM3 (134-434); RDW 15.8 % (11.9-15.9); WHITE BLOOD COUNT 3.8 K/mm3 (4.0-10.0)
[2017-07-26 10:10] LABS: ALK PHOS 63 U/L (45-117); BILIRUBIN,TOTAL 0.9 mg/dL (0.2-1.0); SGOT/AST 22 U/L (15-37); SGPT/ALT 36 U/L (12-78); TOT PROT 5.8 g/dl (6.4-8.2)
[2017-07-26] MEDS: PRENATAL VITAMINS W/ FOLIC ACID TABLET (FP) PO SCH (10:24)
[2017-07-26] MEDS: NICOTINE 14 MG/24 HOURS TOPICAL PATCH TD SCH (10:27)
[2017-07-26] MEDS: NICOTINE POLACRILEX 2 MG GUM BC PRN ×2 (10:28→20:29)
--- NOTE | 2017-07-26 13:24 | EKG ---
Test Reason : Blood Pressure : / mmHG Vent. Rate : 071 BPM Atrial Rate : 071 BPM P-R Int : 146 ms QRS Dur : 092 ms QT Int : 414 ms P-R-T Axes : 075 056 049 degrees QTc Int : 449 ms NORMAL SINUS RHYTHM NORMAL ECG WHEN COMPARED WITH ECG OF 26-APR-2017 19:30, NO SIGNIFICANT CHANGE WAS FOUND Confirmed by SHERRY SORIA MD ([id number]) on 07/26/2017 1:24:01 PM Referred By: Confirmed By:SHERRY SORIA MD
--- NOTE | 2017-07-26 15:01 | PN ---
S CIWA - CIWA Score Nausea/Vomitin Muscle Tremors: 4-Moderate,w/Arms Extend Anxiety: 3 Agitation: 3 Paroxysmal Sweats: 3 Orientation: 0-Oriented Tacttile Disturbances: 0-None Auditory Disturbances: 2-Mild Harshness/Frighten Visual Disturbances: 2-Mild Sensitivity Headache: 0-None Present CIWA-Ar Total Score: 19 BHS COWS - Scale Resting Pulse: 0= [place] 80 or Below Sweatin= Chills/Flushing Restless Observation: 1= Difficult to Sit Still Pupil Size: 0= Normal to Room Light Bone or Joint Aches: 0= None Runny Nose/ Eye Tearin= Runny Nose/Eyes GI Upset > 30mins: 1= Stomach Cramp Tremor Observation of Outstretched Hands: 2= Slight Tremor Visible Yawning Observation: 1= 1-2x During Session Anxiety or Irritability: 2=Irritable/Anxious Goose Flesh Skin: 3=Piloerection COWS Score: 13 S Progress Note (SOAP) Subjective: Tremors, Sweating, Anxious. Objective: PT. A & O X 3, OBSERVED AMBULATING ON UNIT. NO ACUTE DISTRESS. 07/26/17 14:59 Vital Signs Temperature 98.1 F 07/26/17 13:38 Pulse Rate 64 07/26/17 13:38 Respiratory Rate 18 07/26/17 13:38 Blood Pressure 132/76 07/26/17 13:38 O2 Sat by Pulse Oximetry (%) Laboratory Tests 07/25/17 07/26/17 07/26/17 20:45 07:00 07:00 WBC 3.8 L RBC 4.68 Hgb 13.5 Hct 41.5 MCV 88.7 MCH 28.9 MCHC 32.6 RDW 15.8 Plt Count 187 MPV 8.3 Sodium 143 Potassium 4.4 Chloride 106 Carbon Dioxide 32 Anion Gap 5 L BUN 12 Creatinine 1.0 Creat Clearance w eGFR > 60 Random Glucose 81 Calcium 8.2 L Total Bilirubin 0.9 D AST 22 D ALT 36 D Alkaline Phosphatase 63 Total Protein 5.8 L Albumin 2.9 L Urine Color Yellow Urine Appearance Clear Urine pH 5.0 Ur Specific [place] >= 1.030 H Urine Protein Negative Urine Glucose (UA) Negative Urine Ketones Trace H Urine Blood Negative Urine Nitrite Negative Urine Bilirubin Negative Urine Urobilinogen Negative Ur Leukocyte Esterase Negative RPR Titer 10/25/17 07:00 WBC RBC Hgb Hct MCV MCH MCHC RDW Plt Count MPV Sodium Potassium Chloride Carbon Dioxide Anion Gap BUN Creatinine Creat Clearance w eGFR Random Glucose Calcium Total Bilirubin AST ALT Alkaline Phosphatase Total Protein Albumin Urine Color Urine Appearance Urine pH Ur Specific [place] Urine Protein Urine Glucose (UA) Urine Ketones Urine Blood Urine Nitrite Urine Bilirubin Urine Urobilinogen Ur Leukocyte Esterase RPR Titer Nonreactive LABS NOTED. Assessment: 07/26/17 15:00 WITHDRAWAL SYMPTOMS. Plan: CONTINUE DETOX.
[2017-07-26] MEDS: THIAMINE HCL 100 MG TABLET (FP) PO SCH (22:15)
[2017-07-27] MEDS: chlordiazePOXIDE HCL 25 MG CAPSULE PO SCH ×3 (05:24→17:07)
[2017-07-27] MEDS: METHADONE HCL 5 MG TABLET (FOR DETOX USE ONLY) PO SCH (10:29)
[2017-07-27] MEDS: PRENATAL VITAMINS W/ FOLIC ACID TABLET (FP) PO SCH (10:29)
[2017-07-27] MEDS: NICOTINE 14 MG/24 HOURS TOPICAL PATCH TD SCH (10:30)
[2017-07-27] MEDS: NICOTINE POLACRILEX 2 MG GUM BC PRN ×3 (11:00→19:25)
[2017-07-27] MEDS ORDERED: cloNIDine HCL 0.1 MG TABLET PO ONE (12:00)
--- NOTE | 2017-07-27 14:42 | PN ---
[facility] CIWA - CIWA Score Nausea/Vomitin-No Nausea/No Vomiting Muscle Tremors: None Anxiety: 4-Mod. Anxious/Guarded Agitation: 2 Paroxysmal Sweats: No Perspiration Orientation: 0-Oriented Tacttile Disturbances: 3-Moderate Itch/Numb/Burn Auditory Disturbances: 2-Mild Harshness/Frighten Visual Disturbances: 3-Moderate Sensitivity Headache: 0-None Present CIWA-Ar Total Score: 14 BHS COWS - Scale Resting Pulse: 0= [place] 80 or Below Sweatin= Chills/Flushing Restless Observation: 1= Difficult to Sit Still Pupil Size: 0= Normal to Room Light Bone or Joint Aches: 2= Severe Diffuse Aches Runny Nose/ Eye Tearin= Runny Nose/Eyes GI Upset > 30mins: 1= Stomach Cramp Tremor Observation of Outstretched Hands: 0= None Yawning Observation: 1= 1-2x During Session Anxiety or Irritability: 2=Irritable/Anxious Goose Flesh Skin: 3=Piloerection COWS Score: 13 S Progress Note (SOAP) Subjective: Interrupted sleep, Body Aches, Diarrhea, Fatigue. Objective: PT. A & O X 3, OBSERVED AMBULATING ON UNIT. NO ACUTE DISTRESS. 07/27/17 14:40 Vital Signs Temperature 97.0 F L 07/27/17 13:55 Pulse Rate 66 07/27/17 13:55 Respiratory Rate 20 07/27/17 13:55 Blood Pressure 137/91 07/27/17 13:55 O2 Sat by Pulse Oximetry (%) Laboratory Tests 07/25/17 07/26/17 07/26/17 20:45 07:00 07:00 WBC 3.8 L RBC 4.68 Hgb 13.5 Hct 41.5 MCV 88.7 MCH 28.9 MCHC 32.6 RDW 15.8 Plt Count 187 MPV 8.3 Sodium 143 Potassium 4.4 Chloride 106 Carbon Dioxide 32 Anion Gap 5 L BUN 12 Creatinine 1.0 Creat Clearance w eGFR > 60 Random Glucose 81 Calcium 8.2 L Total Bilirubin 0.9 D AST 22 D ALT 36 D Alkaline Phosphatase 63 Total Protein 5.8 L Albumin 2.9 L Urine Color Yellow Urine Appearance Clear Urine pH 5.0 Ur Specific [place] >= 1.030 H Urine Protein Negative Urine Glucose (UA) Negative Urine Ketones Trace H Urine Blood Negative Urine Nitrite Negative Urine Bilirubin Negative Urine Urobilinogen Negative Ur Leukocyte Esterase Negative RPR Titer 07/26/17 07:00 WBC RBC Hgb Hct MCV MCH MCHC RDW Plt Count MPV Sodium Potassium Chloride Carbon Dioxide Anion Gap BUN Creatinine Creat Clearance w eGFR Random Glucose Calcium Total Bilirubin AST ALT Alkaline Phosphatase Total Protein Albumin Urine Color Urine Appearance Urine pH Ur Specific [place] Urine Protein Urine Glucose (UA) Urine Ketones Urine Blood Urine Nitrite Urine Bilirubin Urine Urobilinogen Ur Leukocyte Esterase RPR Titer Nonreactive LABS NOTED. Assessment: 07/27/17 14:41 WITHDRAWAL SYMPTOMS. Plan: CONTINUE DETOX. CLONIDINE, 0.1 MG PO X 1 FOR DETOX SYMPTOMS.
[2017-07-27] MEDS: THIAMINE HCL 100 MG TABLET (FP) PO SCH (22:26)
[2017-07-27] MEDS: chlordiazePOXIDE 5 MG CAPSULE PO SCH (22:26)
[2017-07-28] MEDS: chlordiazePOXIDE 5 MG CAPSULE PO SCH ×2 (05:07→11:11)
[2017-07-28 10:08] VITALS: TEMP 97.3
[2017-07-28] MEDS: PRENATAL VITAMINS W/ FOLIC ACID TABLET (FP) PO SCH (10:24)
[2017-07-28] MEDS: METHADONE HCL 5 MG TABLET (FOR DETOX USE ONLY) PO SCH (10:24)
[2017-07-28] MEDS: NICOTINE POLACRILEX 2 MG GUM BC PRN (10:25)
[2017-07-28] MEDS: NICOTINE 14 MG/24 HOURS TOPICAL PATCH TD SCH (10:30)
--- NOTE | 2017-07-28 12:01 | DS ---
[facility] Detox Discharge Summary Admission Date: 07/25/17 Discharge Date: 07/28/17 - History Present History: Alcohol Dependence, Cocaine Dependence, Opioid Dependence, Sedative Dependence Additional Comments: PATIENT GOING TO [facility] FOR AFTERCARE. PATIENT WAS DISCHARGED FROM DETOX UNIT TO BE TAKEN TO REHAB UNIT IN STABLE MEDICAL CONDITION. Pertinent Past History: HTN, Nicotine Dependence. - Physical Exam Results Vital Signs: Vital Signs Temperature 97.3 F L 07/28/17 10:00 Pulse Rate 68 07/28/17 10:00 Respiratory Rate 18 07/28/17 10:00 Blood Pressure 111/72 07/28/17 10:00 O2 Sat by Pulse Oximetry (%) Pertinent Admission Physical Exam Findings: WITHDRAWAL SYMPTOMS. Laboratory Tests 07/25/17 07/26/17 07/26/17 20:45 07:00 07:00 WBC 3.8 L RBC 4.68 Hgb 13.5 Hct 41.5 MCV 88.7 MCH 28.9 MCHC 32.6 RDW 15.8 Plt Count 187 MPV 8.3 Sodium 143 Potassium 4.4 Chloride 106 Carbon Dioxide 32 Anion Gap 5 L BUN 12 Creatinine 1.0 Creat Clearance w eGFR > 60 Random Glucose 81 Calcium 8.2 L Total Bilirubin 0.9 D AST 22 D ALT 36 D Alkaline Phosphatase 63 Total Protein 5.8 L Albumin 2.9 L Urine Color Yellow Urine Appearance Clear Urine pH 5.0 Ur Specific [place] >= 1.030 H Urine Protein Negative Urine Glucose (UA) Negative Urine Ketones Trace H Urine Blood Negative Urine Nitrite Negative Urine Bilirubin Negative Urine Urobilinogen Negative Ur Leukocyte Esterase Negative RPR Titer 07/26/17 07:00 WBC RBC Hgb Hct MCV MCH MCHC RDW Plt Count MPV Sodium Potassium Chloride Carbon Dioxide Anion Gap BUN Creatinine Creat Clearance w eGFR Random Glucose Calcium Total Bilirubin AST ALT Alkaline Phosphatase Total Protein Albumin Urine Color Urine Appearance Urine pH Ur Specific [place] Urine Protein Urine Glucose (UA) Urine Ketones Urine Blood Urine Nitrite Urine Bilirubin Urine Urobilinogen Ur Leukocyte Esterase RPR Titer Nonreactive LABS NOTED. - Treatment Hospital Course: Detox Protocol Followed, Detoxed Safely, Responded well, Discharged Condition Good, Rehab Referral Accepted Patient has Accepted a Rehab Referral to: [facility]. - Medication Discharge Medications: Ambulatory Orders NK [No Known Home Medication] 07/25/17 - Diagnosis (1) Alcohol dependence with uncomplicated withdrawal Current Visit: Yes Status: Acute (2) Nicotine dependence Current Visit: Yes Status: Chronic Qualifiers: Nicotine product type: cigarettes Substance use status: in withdrawal Qualified Code(s): F17.213 - Nicotine dependence, cigarettes, with withdrawal; F17.213 - Nicotine dependence, cigarettes, with withdrawal (3) Opioid dependence with withdrawal Current Visit: Yes Status: Acute (4) Sedative, hypnotic or anxiolytic dependence, uncomplicated Current Visit: Yes Status: Acute (5) Cocaine dependence, uncomplicated Current Visit: Yes Status: Chronic - AMA Did Patient Leave Against Medical Advice: No
[2017-07-28 13:37] VITALS: BP 144/86; PULSE 70
[2017-07-28] MEDS ORDERED: chlordiazePOXIDE HCL 10 MG CAPSULE PO SCH (23:00)
[2017-07-29] MEDS ORDERED: METHADONE HCL 10 MG TABLET (FOR DETOX USE ONLY) PO SCH (10:00)
[2017-07-30] MEDS ORDERED: METHADONE HCL 5 MG TABLET (FOR DETOX USE ONLY) PO SCH (06:00)
== END 2017-07-28 14:35 | disposition other institution (70) | DRG 773 ==
LOC: YASAS 12:57 → Y3N 17:55
PROVIDERS: ADMIT Internal Medicine; ATTEND Internal Medicine
PROC: HZ2ZZZZ Detoxification Services for Substance Abuse Treatment (ICD-10-PCS; principal; 2017-07-25)
DX: F11.23 Opioid dependence with withdrawal (principal); F13.230 Sedative, hypnotic or anxiolytic dependence with withdrawal, uncomplicated; F10.230 Alcohol dependence with withdrawal, uncomplicated; F14.20 Cocaine dependence, uncomplicated; F17.213 Nicotine dependence, cigarettes, with withdrawal; I10 Essential (primary) hypertension
CPT/HCPCS: 36415; 80053; 81003; 85027; 86593; 93005; 93010

== ENCOUNTER 2018-10-16 13:28 | Inpatient (IN) | payer OTHER ==
[2018-10-16 14:25] VITALS: BMI 32.8
--- NOTE | 2018-10-16 18:24 | HP ---
CIWA Score - Admission Criteria [facility] Guidelines: Admission for Medically Managed Detox: Requires at least one of the followin. CIWA greater than 12 2. Seizures within the past 24 hours 3. Delirium tremens within the past 24 hours 4. Hallucinations within the past 24 hours 5. Acute intervention needed for co occurring medical disorder 6. Acute intervention needed for co occurring psychiatric disorder 7. Severe withdrawal that cannot be handled at a lower level of care (continued vomiting, continued diarrhea, abnormal vital signs) requiring intravenous medication and/or fluids 8. Admission ROS S - HPI Chief Complaint: I was at detox at [facility] and was discharged today. I am ready for rehab. Allergies/Adverse Reactions: Allergies Allergy/AdvReac Type Severity Reaction Status Date / Time Penicillins Allergy Mild Hives Verified 10/16/18 16:26 seafood Allergy Severe Hives Uncoded 10/16/18 16:25 History of Present Illness: pt is a 48yr old male with a history of heroin and alcohol dependence seeking rehab for further treatment. Pt was at [facility] for detox and was d/c today. pt also has a recent QFT in chart neg for TB. Exam Limitations: No Limitations - Ebola screening Have you traveled outside of the country in the last 21 days: No Have you had contact with anyone from an Ebola affected area: No Have you been sick,other than usual withdrawal symptoms: No Do you have a fever: No - Review of Systems Constitutional: Chills EENT: reports: No Symptoms Reported Respiratory: reports: No Symptoms reported Cardiac: reports: No Symptoms Reported GI: reports: No Symptoms Reported : reports: No Symptoms Reported Musculoskeletal: reports: No Symptoms Reported Integumentary: reports: No Symptoms Reported Neuro: reports: No Symptoms reported Endocrine: reports: No Symptoms Reported Hematology: reports: No Symptoms Reported Psychiatric: reports: Judgement Intact, Mood/Affect Appropiate, Orientated x3, Agitated, Anxious Other Systems: Reviewed and Negative Patient History - Patient Medical History Hx Anemia: No Hx Asthma: No Hx Chronic Obstructive Pulmonary Disease (COPD): No Hx Cancer: No Hx Cardiac Disorders: No Hx Congestive Heart Failure: No Hx Hypertension: Yes (Pt DID NOT BRING MEDICATION WITH HIM) Hx Hypercholesterolemia: No Hx Pacemaker: No HX Cerebrovascular Accident: No Hx Seizures: No Hx Dementia: No Hx Diabetes: No Hx Gastrointestinal Disorders: No Hx Liver Disease: No Hx Genitourinary Disorders: No Hx Sexually Transmitted Disorders: No Hx Renal Disease (ESRD): No Hx Thyroid Disease: No Hx Human Immunodeficiency Virus (HIV): No (last 11/18 negative) Hx Hepatitis C: No (denies) Hx Depression: No Hx Suicide Attempt: No (denies) Hx Bipolar Disorder: No Hx Schizophrenia: No - Patient Surgical History Past Surgical History: No Hx Neurologic Surgery: No Hx Cataract Extraction: No Hx Cardiac Surgery: No Hx Lung Surgery: No Hx Breast Surgery: No Hx Breast Biopsy: No Hx Abdominal Surgery: No Hx Appendectomy: No Hx Cholecystectomy: No Hx Genitourinary Surgery: No Hx Section: No Hx Orthopedic Surgery: No - PPD History Previous Implant?: Yes Documented Results: Negative w/proof Implanted On Prior [facility] Admission?: Yes Date: 04/28/17 Results: 0 mm PPD to be Administered?: No - Reproductive History Patient : No - Smoking Cessation Smoking history: Current every day smoker Have you smoked in the past 12 months: Yes Aproximately how many cigarettes per day: 10 Cigars Per Day: 0 Hx Chewing Tobacco Use: No Initiated information on smoking cessation: Yes 'Breaking Loose' booklet given: 10/16/18 - Substance & Tx. History Hx Alcohol Use: Yes Hx Substance Use: Yes Substance Use Type: Alcohol, Heroin Hx Substance Use Treatment: Yes (last detox [facility] 10/2017) - Substances Abused Heroin Route: Inhalation Frequency: Daily Amount used: 10 bags Age of first use: 28 Date of Last Use: 10/11/18 Alcohol Route: Oral Frequency: Daily Amount used: 3 24 oz beer Age of first use: 13 Date of Last Use: 10/11/18 Family Disease History - Family Disease History Family Disease History: Heart Disease: Mother, Other: Father (/alcohol) , Brother (no brother) Admission Physical Exam [facility] - Vital Signs Vital Signs: Vital Signs - 24 hr 10/16/18 14:23 Temperature 97.0 F L Pulse Rate 77 Respiratory 16 Rate Blood Pressure 145/78 - Physical General Appearance: Yes: Appropriately Dressed, Moderate Distress HEENTM: Yes: Hearing grossly Normal, Normal Voice, Nasal Congestion Respiratory: Yes: Lungs Clear, Normal Breath Sounds, No Respiratory Distress Neck: Yes: No masses,lesions,Nodules Breast: Yes: Within Normal Limits Cardiology: Yes: Regular Rhythm, Regular Rate, S1, S2 Abdominal: Yes: Normal Bowel Sounds Genitourinary: Yes: Within Normal Limits Back: Yes: Normal Inspection Musculoskeletal: Yes: full range of Motion Extremities: Yes: Normal Capillary Refill Neurological: Yes: Fully Oriented, Alert, Normal Response Integumentary: Yes: Normal Color Lymphatic: Yes: Within Normal Limits - Diagnostic (1) Cocaine dependence Current Visit: Yes Status: Chronic Qualifiers: Substance use status: uncomplicated Qualified Code(s): F14.20 - Cocaine dependence, uncomplicated (2) Essential hypertension Current Visit: Yes Status: Chronic (3) Opioid dependence Current Visit: No Status: Chronic Qualifiers: Substance use status: in remission Qualified Code(s): F11.21 - Opioid dependence, in remission (4) Nicotine dependence Current Visit: Yes Status: Chronic Qualifiers: Nicotine product type: cigarettes Substance use status: uncomplicated Qualified Code(s): F17.210 - Nicotine dependence, cigarettes, uncomplicated Cleared for Admission [facility] - Detox or Rehab [facility] Level of Care: Medically Managed Claeared for Rehab Admission: Yes [facility] Breath Alcohol Content Breath Alcohol Content: 0 Urine Drug Screen - Results Drug Screen Negative: No Urine Drug Screen Results: BZO-Benzodiazepines, MTD-Methadone Inpatient Rehab Admission - Initial Determination Free of communicable disease: Yes Not in need of hospitalization: Yes - Rehab Admission Criteria Previous failed treatment: Yes Poor recovery environment: Yes Comorbidities: Yes
[2018-10-16] MEDS ORDERED: hydrOXYzine PAMOATE 50 MG CAPSULE (FP) PO PRN (18:30)
[2018-10-16] MEDS ORDERED: P-EPHED 60MG/TRIPROLIDI 2.5MG TABLET PO PRN (18:30)
[2018-10-16] MEDS ORDERED: ACETAMINOPHEN 325 MG TABLET (FP) PO PRN (18:30)
[2018-10-16] MEDS ORDERED: MAG HYDROX/AL HYDROX/SIMETH 30 ML UNIT-DOSE CUP PO PRN (18:30)
[2018-10-16] MEDS ORDERED: MENTHOL/PHENOL 1 EACH UD MM PRN (18:30)
[2018-10-16] MEDS ORDERED: guaiFENesin/D-METHORPHAN HB 10 ML UNIT-DOSE CUPS PO PRN (18:30)
[2018-10-16] MEDS ORDERED: MAGNESIUM CITRATE 300 ML BOTTLE PO PRN (18:30)
[2018-10-16] MEDS ORDERED: LOPERAMIDE HCL 2 MG CAPSULE PO PRN (18:30)
[2018-10-16] MEDS ORDERED: MAGNESIUM HYDROX 2400MG/30ML ORAL SUSPENSION 30 ML CUP PO PRN (18:30)
[2018-10-16] MEDS: THIAMINE HCL 100 MG TABLET (FP) PO SCH (21:54)
[2018-10-16] MEDS: cloNIDine HCL 0.1 MG TABLET PO SCH (21:54)
[2018-10-16 23:49] LABS: URINE APPEARANCE CLEAR; URINE BILIRUBIN NEGATIVE (<2.0 mg/dL); URINE COLOR LTYELLOW; URINE GLUCOSE (UA) NEGATIVE (NEGATIVE); URINE KETONE NEGATIVE (NEGATIVE); URINE LEUK ESTERASE NEGATIVE (NEGATIVE); URINE NITRITE NEGATIVE (NEGATIVE); URINE PROTEIN NEGATIVE (NEGATIVE); URINE UROBILINOGEN NEGATIVE mg/dL (0.2-1.0)
[2018-10-17] MEDS: IBUPROFEN 400 MG TABLET (FP) PO PRN (06:45)
--- NOTE | 2018-10-17 06:59 | HP ---
Psychiatrist Admission - Data Date of interview: 10/17/18 Admission source: I detox Identifying data: This is the second [facility] admission for this 48 years old single Black,father of 2 children, unemployed on public assistance, domiciled living with family Medical History: Significant for history of hypertension. Smokes 10 cigarettes daily Psychiatric History: Denies history of previous psychiatric treatment Physical/Sexual Abuse/Trauma History: Denies history of verbal, physical or sexual abuse as well as DV relationship. No service Additional Comment: Reports history of 5-6 previous arrests including 4 felony convictions. No parole/probation currently Vital Signs: Vital Signs - 24 hr 10/16/18 10/16/18 10/17/18 14:23 21:51 00:30 Temperature 97.0 F L 98.3 F Pulse Rate 77 74 Respiratory 16 16 18 Rate Blood Pressure 145/78 138/77 10/17/18 03:30 Temperature Pulse Rate Respiratory 18 Rate Blood Pressure Allergies/Adverse Reactions: Allergies Allergy/AdvReac Type Severity Reaction Status Date / Time fish derived Allergy Severe Hives Verified 10/16/18 19:00 lisinopril Allergy Severe Swelling Verified 10/17/18 09:34 shellfish derived Allergy Severe Hives Verified 10/16/18 19:00 Penicillins Allergy Mild Hives Verified 10/16/18 16:26 seafood Allergy Severe Hives Uncoded 10/16/18 16:25 Date of last physical exam: 10/16/18 Concur with the findings of this exam: Yes - Substance Abuse/Tx History Hx Alcohol Use: Yes Hx Substance Use: Yes Substance Use Type: Alcohol (Started drinking alcohol at age 13, consumes 3x 24oz of beer daily. Last drank on 10/11/18), Heroin (Started using heroin at age 28, consumes 10 bags daily. Last used on 10/11/18) Hx Substance Use Treatment: Yes (7 previous inpt detox & one inpt rehab) Mental Status Exam - Mental Status Exam Alert and Oriented to: Time, Place, Person Cognitive Function: Fair Patient Appearance: Well Groomed Mood: Hopeful, Euthymic Affect: Appropriate Speech Pattern: Clear Voice Loudness: Normal Thought Process: Intact, Goal Oriented Thought Disorder: Not Present Hallucinations: Denies Suicidal Ideation: Denies Homicidal Ideation: Denies Insight/Judgement: Fair Sleep: Well Appetite: Good Muscle strength/Tone: Normal Gait/Station: Normal Psychiatric Findings - Problem List ([place] 1, 2,3) (1) Alcohol dependence Current Visit: Yes Status: Acute (2) Opioid dependence Current Visit: No Status: Chronic Qualifiers: Substance use status: in remission Qualified Code(s): F11.21 - Opioid dependence, in remission (3) Nicotine dependence Current Visit: Yes Status: Chronic Qualifiers: Nicotine product type: cigarettes Substance use status: uncomplicated Qualified Code(s): F17.210 - Nicotine dependence, cigarettes, uncomplicated (4) Essential hypertension Current Visit: Yes Status: Chronic - Initial Treatment Plan Initial Treatment Plan: Monitor progress
--- NOTE | 2018-10-17 09:08 | HP ---
COWS - Scale Resting Pulse: 0= MA 80 or Below Sweatin= Chills/Flushing Restless Observation: 0= Sits Still Pupil Size: 0= Normal to Room Light Bone or Joint Aches: 0= None Runny Nose/ Eye Tearin= Nasal Congestion GI Upset > 30mins: 2= Nausea/Diarrhea (NAUSEA) Tremor Observation: 0= None Yawning Observation: 0= None Anxiety or Irritability: 2=Irritable/Anxious Goose Flesh Skin: 0=Smooth Skin COWS Score: 6 CIWA Score - Admission Criteria [facility] Guidelines: Admission for Medically Managed Detox: Requires at least one of the followin. CIWA greater than 12 2. Seizures within the past 24 hours 3. Delirium tremens within the past 24 hours 4. Hallucinations within the past 24 hours 5. Acute intervention needed for co occurring medical disorder 6. Acute intervention needed for co occurring psychiatric disorder 7. Severe withdrawal that cannot be handled at a lower level of care (continued vomiting, continued diarrhea, abnormal vital signs) requiring intravenous medication and/or fluids 8. Admission ROS [facility] Chief Complaint: PT C/O CRAVINGS FOR HEROIN AND REQUESTING SUBOXONE TX. Allergies/Adverse Reactions: Allergies Allergy/AdvReac Type Severity Reaction Status Date / Time fish derived Allergy Severe Hives Verified 10/16/18 19:00 lisinopril Allergy Severe Swelling Verified 10/17/18 09:34 shellfish derived Allergy Severe Hives Verified 10/16/18 19:00 Penicillins Allergy Mild Hives Verified 10/16/18 16:26 seafood Allergy Severe Hives Uncoded 10/16/18 16:25 History of Present Illness: 48 Y/O MALE ADMITTED TO REHAB WITH A HX OF ALCOHOL AND HEROIN DEPENDENCE REQUESTING SUBOXONE TX. PT REPORTS HE COMPLETED DETOX AT [facility] FOR HEROIN AND ALCOHOL AND WAS REFERRED STRAIGHT HERE YESTERDAY 10/16/18. PT REPORTS HE WAS ON SUBOXONE BEFORE RELAPSING AND WENT INTO DETOX ON 10/10/18 AT [facility] PLEASE SEE BELOW FOR VERIFICATION OF SUBOXONE TX FROM CERTIFIED DRUG COUNSELOR REGISTRY. PT ON SUBOXONE 8MG/2MG SL BID. PT TO MEET WITH COUNSELOR TO ARRANGE AFTERCARE REFERRAL/SUBOXONE TREATMENT AFTER REHAB. Others' Prescriptions Patient Name: Howie Mcadams Date: 1970 Address: [address] [place], [place] [id number] Sex: Male Rx Written Rx Dispensed Drug Quantity Days Supply Prescriber Name 09/17/2018 10/09/2018 zolpidem tartrate 10 mg tablet 30 30 Chetan Fleming MD 09/17/2018 10/09/2018 suboxone 8 mg-2 mg sl film 60 30 Chetan Fleming MD 08/29/2018 09/08/2018 suboxone 8 mg-2 mg sl film 60 30 Chetan Fleming MD 07/25/2018 08/25/2018 zolpidem tartrate 10 mg tablet 30 30 Chetan Fleming MD 07/27/2018 08/10/2018 suboxone 8 mg-2 mg sl film 60 30 Chetan Fleming MD 07/25/2018 07/25/2018 zolpidem tartrate 10 mg tablet 30 30 Chetan Fleming MD Patient Name: Howie Mcadams Date: 1970 Address: [address] [place], [place] [id number] Sex: Male Rx Written Rx Dispensed Drug Quantity Days Supply Prescriber Name 02/13/2018 03/15/2018 zolpidem tartrate 10 mg tablet 30 30 Judy Leong NP 03/15/2018 03/15/2018 suboxone 8 mg-2 mg sl film 45 15 Josh Ren MD 03/15/2018 03/15/2018 clonazepam 2 mg tablet 30 15 Josh Ren MD 01/26/2018 02/13/2018 zolpidem tartrate 10 mg tablet 30 30 Judy Leong , MSN 02/13/2018 02/13/2018 suboxone 8 mg-2 mg sl film 90 30 Judy Leong NP 02/13/2018 02/13/2018 clonazepam 2 mg tablet 60 30 Judy Leong NP 01/26/2018 01/30/2018 suboxone 8 mg-2 mg sl film 45 15 Judy Leong NP 01/11/2018 01/26/2018 zolpidem tartrate 10 mg tablet 14 14 Judy Leong NP 01/26/2018 01/26/2018 clonazepam 1 mg tablet 60 15 Judy Leong NP 01/11/2018 01/15/2018 suboxone 8 mg-2 mg sl film 45 15 Judy Leong NP 12/27/2017 01/11/2018 zolpidem tartrate 10 mg tablet 14 14 Judy Leong [employer] 12/27/2017 01/01/2018 suboxone 8 mg-2 mg sl film 45 15 Judy Leong [employer] 12/27/2017 12/27/2017 clonazepam 2 mg tablet 30 30 Judy Leong [employer] 12/19/2017 12/25/2017 zolpidem tartrate 10 mg tablet 14 14 Salo, Judy [employer] 12/19/2017 12/19/2017 suboxone 8 mg-2 mg sl film 45 15 Judy Leong [employer] 12/05/2017 12/06/2017 suboxone 8 mg-2 mg sl film 45 15 Judy Leong [employer] 11/29/2017 11/29/2017 clonazepam 2 mg tablet 30 30 Judy Leong [employer] 11/22/2017 11/22/2017 suboxone 8 mg-2 mg sl film 45 15 Judy Leong [employer] 11/20/2017 11/20/2017 suboxone 8 mg-2 mg sl film 5 2 Marion Dominguez (DO ) 11/06/2017 11/06/2017 suboxone 8 mg-2 mg sl film 45 15 Judy Leong [employer] 10/30/2017 10/30/2017 clonazepam 2 mg tablet 30 30 Josh Ren MD 10/25/2017 10/25/2017 suboxone 8 mg-2 mg sl film 30 15 Judy Leong [employer] * - Drugs marked with an asterisk are compound drugs. If the compound drug is made up of more than one controlled substance, then each controlled substance will be a separate row in the table. Click the Report Suspicious Activity button to report information related to controlled substance suspicious activity to the [place] [employer]. Click the Send Questions/Comments button to send questions about this report to the [place] [employer], or call . Click the Substance Abuse Treatment Information button to go to the Office of Alcoholism and Substance Abuse Services website, www.oasas.[place].gov or call 1- 788.311.5554. - Ebola screening Have you traveled outside of the country in the last 21 days: No Have you had contact with anyone from an Ebola affected area: No Have you been sick,other than usual withdrawal symptoms: No Do you have a fever: No - Review of Systems Constitutional: Chills Cardiac: reports: No Symptoms Reported GI: reports: Nausea Neuro: reports: No Symptoms reported Psychiatric: reports: Orientated x3, Anxious Other Systems: Reviewed and Negative Patient History - Patient Medical History Hx Anemia: No Hx Asthma: No Hx Chronic Obstructive Pulmonary Disease (COPD): No Hx Cancer: No Hx Cardiac Disorders: No Hx Congestive Heart Failure: No Hx Hypertension: Yes (Pt DID NOT BRING MEDICATION WITH HIM) Hx Hypercholesterolemia: No Hx Pacemaker: No HX Cerebrovascular Accident: No Hx Seizures: No Hx Dementia: No Hx Diabetes: No Hx Gastrointestinal Disorders: No Hx Liver Disease: No Hx Genitourinary Disorders: No Hx Sexually Transmitted Disorders: No Hx Renal Disease (ESRD): No Hx Thyroid Disease: No Hx Human Immunodeficiency Virus (HIV): No (last 11/18 negative) Hx Hepatitis C: No (denies) Hx Depression: No Hx Suicide Attempt: No (denies) Hx Bipolar Disorder: No Hx Schizophrenia: No - Patient Surgical History Past Surgical History: No Hx Neurologic Surgery: No Hx Cataract Extraction: No Hx Cardiac Surgery: No Hx Lung Surgery: No Hx Breast Surgery: No Hx Breast Biopsy: No Hx Abdominal Surgery: No Hx Appendectomy: No Hx Cholecystectomy: No Hx Genitourinary Surgery: No Hx Section: No Hx Orthopedic Surgery: No - PPD History Previous Implant?: Yes Documented Results: Negative w/proof Implanted On Prior R Admission?: Yes Date: 04/28/17 Results: 0 mm - Reproductive History Patient : No - Smoking Cessation Smoking history: Current every day smoker Have you smoked in the past 12 months: Yes Aproximately how many cigarettes per day: 10 Cigars Per Day: 0 Hx Chewing Tobacco Use: No Initiated information on smoking cessation: Yes 'Breaking Loose' booklet given: 10/16/18 - Substance & Tx. History Hx Alcohol Use: Yes Hx Substance Use: Yes Substance Use Type: Alcohol, Heroin Hx Substance Use Treatment: Yes ([facility] 10/10/18) - Substances Abused Heroin Route: Inhalation Frequency: Daily Amount used: 10 bags Age of first use: 28 Date of Last Use: 10/11/18 Alcohol Route: Oral Frequency: Daily Amount used: 3 24 oz beer Age of first use: 13 Date of Last Use: 10/11/18 Family Disease History - Family Disease History Family Disease History: Heart Disease: Mother, Other: Father (/alcohol) , Brother (no brother) Admission Physical Exam [facility] - Vital Signs Vital Signs: Vital Signs - 24 hr 10/16/18 10/16/18 10/17/18 14:23 21:51 00:30 Temperature 97.0 F L 98.3 F Pulse Rate 77 74 Respiratory 16 16 18 Rate Blood Pressure 145/78 138/77 10/17/18 10/17/18 03:30 07:03 Temperature 97.7 F Pulse Rate 62 Respiratory 18 18 Rate Blood Pressure 110/73 - Physical General Appearance: Yes: Irritable, Anxious HEENTM: Yes: EOMI, LIBBY, Pharynx Normal Musculoskeletal: Yes: full range of Motion, Gait Steady Neurological: Yes: outreach coordinator II-XII NML intact, Fully Oriented, Alert Integumentary: Yes: Within Normal Limits Lymphatic: Yes: Within Normal Limits - Addiitonal Findings: TO START MAT AFTER 48 HRS. PT ADMITTED YESTERDAY WITH URINE (+) FOR METHADONE. TO REPEAT UDT IN AM. - Diagnostic (1) Essential hypertension Current Visit: Yes Status: Chronic (2) Nicotine dependence Current Visit: Yes Status: Chronic Qualifiers: Nicotine product type: cigarettes Substance use status: in withdrawal Qualified Code(s): F17.213 - Nicotine dependence, cigarettes, with withdrawal (3) Opioid dependence Current Visit: Yes Status: Chronic Qualifiers: Substance use status: in remission Qualified Code(s): F11.21 - Opioid dependence, in remission (4) Encounter for monitoring Suboxone maintenance therapy Current Visit: Yes Status: Chronic S Breath Alcohol Content Breath Alcohol Content: 0 Urine Drug Screen - Results Drug Screen Negative: No Urine Drug Screen Results: BZO-Benzodiazepines, MTD-Methadone
[2018-10-17] MEDS: cloNIDine HCL 0.1 MG TABLET PO SCH ×2 (10:12→21:34)
[2018-10-17] MEDS: CYCLOBENZAPRINE HCL 10 MG TABLET (FP) PO PRN (10:13)
[2018-10-17] MEDS: PRENATAL VITAMINS W/ FOLIC ACID TABLET (FP) PO SCH (10:13)
[2018-10-17 10:17] LABS: HEMATOCRIT 37.1 % (35.4-49); HEMOGLOBIN 12.5 GM/dL (11.7-16.9); MCH 30.5 pg (25.7-33.7); MCHC 33.7 g/dl (32.0-35.9); MEAN CELL VOLUME 90.4 fl (80-96); PLATELET COUNT 209 K/MM3 (134-434); RDW 16.9 % (11.9-15.9); WHITE BLOOD COUNT 4.8 K/mm3 (4.0-10.0)
[2018-10-17 10:54] LABS: ALBUMIN 2.9 g/dl (3.4-5.0); ALK PHOS 66 U/L (45-117); ANION GAP 9 MMOL/L (8-16); BILIRUBIN,TOTAL 0.6 mg/dL (0.2-1); BLOOD UREA NITROGEN 18 mg/dL (7-18); CALCIUM 8.4 mg/dL (8.5-10.1); CHLORIDE 109 mmol/L (98-107); CO2 27 mmol/L (21-32); GLUCOSE,RANDOM 108 mg/dL (74-106); POTASSIUM 4.1 mmol/L (3.5-5.1); SGOT/AST 25 U/L (15-37); SGPT/ALT 30 U/L (13-61); SODIUM 145 mmol/L (136-145); TOT PROT 5.6 g/dl (6.4-8.2)
[2018-10-17] MEDS: THIAMINE HCL 100 MG TABLET (FP) PO SCH (21:34)
[2018-10-17] MEDS: MELATONIN 5 MG TABLETS PO PRN (21:35)
--- NOTE | 2018-10-18 08:44 | PN ---
[facility] Progress Note Note: PT IS RESTARTING ON SUBOXONE 8 MG/2 MG SL BID TODAY. PT WILL BE GOING BACK TO HIS SUBOXONE PROVIDER, MARIIA FOLEY AFTER REHAB. PT REPORTS HE HAS THE LAST RX OF SUBOXONE PICKUP ON 10/09/18 AT HOME AND NO NEED FOR COURTESY RX ON DISCHARGE. PT IS ALERT O X 3. OOB IN BETTER SPIRIT THAN YESTERDAY. SOME NASAL CONGESTION/ RUNNY NOSE TODAY. Vital Signs 10/18/18 10/18/18 03:30 07:12 Respiratory 18 18 Rate Vital Signs - 24 hr 10/17/18 10/18/18 10/18/18 21:00 00:30 03:30 Pulse Rate 68 Respiratory 18 18 Rate Blood Pressure 146/81 10/18/18 07:12 Pulse Rate Respiratory 18 Rate Blood Pressure MAT PLAN:RESTART SUBOXONE 8 MG/ 2 MG SL BID @ 1000 AND 1800.
[2018-10-18] MEDS: cloNIDine HCL 0.1 MG TABLET PO SCH ×2 (10:28→21:40)
[2018-10-18] MEDS: BUPRENORPHINE/NALOXONE 8 MG/2 MG FILM PACKET SL SCH ×2 (10:28→17:44)
[2018-10-18] MEDS: PRENATAL VITAMINS W/ FOLIC ACID TABLET (FP) PO SCH (10:28)
[2018-10-18] MEDS: NICOTINE POLACRILEX 4 MG GUM BC PRN ×2 (12:58→21:41)
[2018-10-18] MEDS: THIAMINE HCL 100 MG TABLET (FP) PO SCH (21:40)
[2018-10-18] MEDS: MELATONIN 5 MG TABLETS PO PRN (21:40)
[2018-10-19] MEDS: IBUPROFEN 400 MG TABLET (FP) PO PRN ×2 (05:54→20:09)
[2018-10-19] MEDS: PRENATAL VITAMINS W/ FOLIC ACID TABLET (FP) PO SCH (10:19)
[2018-10-19] MEDS: cloNIDine HCL 0.1 MG TABLET PO SCH ×2 (10:19→21:49)
[2018-10-19] MEDS: BUPRENORPHINE/NALOXONE 8 MG/2 MG FILM PACKET SL SCH ×2 (10:19→17:33)
[2018-10-19] MEDS: NICOTINE POLACRILEX 4 MG GUM BC PRN ×2 (10:37→21:50)
--- NOTE | 2018-10-19 12:33 | PN ---
S Progress Note Note: REQUESTS SUBOXONE TIME CHANGE TO 6A.M AND 6 P.M. ALERT O X 3. NAD. IN GOOD SPIRIT. Vital Signs 10/19/18 06:49 Temperature 97.5 F L Pulse Rate 57 L Respiratory 18 Rate Blood Pressure 130/68 PLAN:CHANGE TIME SCHEDULE DIRECTED
[2018-10-19] MEDS: THIAMINE HCL 100 MG TABLET (FP) PO SCH (21:48)
[2018-10-19] MEDS: CYCLOBENZAPRINE HCL 10 MG TABLET (FP) PO PRN (21:48)
[2018-10-19] MEDS: MELATONIN 5 MG TABLETS PO PRN (21:49)
[2018-10-20] MEDS: BUPRENORPHINE/NALOXONE 8 MG/2 MG FILM PACKET SL SCH ×2 (06:32→17:41)
[2018-10-20] MEDS: IBUPROFEN 400 MG TABLET (FP) PO PRN (06:32)
[2018-10-20] MEDS: NICOTINE POLACRILEX 4 MG GUM BC PRN ×2 (06:33→10:16)
[2018-10-20] MEDS: PRENATAL VITAMINS W/ FOLIC ACID TABLET (FP) PO SCH (10:14)
[2018-10-20] MEDS: cloNIDine HCL 0.1 MG TABLET PO SCH ×2 (10:14→21:47)
[2018-10-20] MEDS: THIAMINE HCL 100 MG TABLET (FP) PO SCH (21:47)
[2018-10-20] MEDS: MELATONIN 5 MG TABLETS PO PRN (21:47)
[2018-10-21] MEDS: IBUPROFEN 400 MG TABLET (FP) PO PRN (05:16)
[2018-10-21] MEDS: BUPRENORPHINE/NALOXONE 8 MG/2 MG FILM PACKET SL SCH ×2 (05:59→17:28)
[2018-10-21] MEDS: cloNIDine HCL 0.1 MG TABLET PO SCH ×2 (10:26→21:38)
[2018-10-21] MEDS: PRENATAL VITAMINS W/ FOLIC ACID TABLET (FP) PO SCH (10:26)
[2018-10-21] MEDS: NICOTINE POLACRILEX 4 MG GUM BC PRN ×2 (10:28→18:22)
[2018-10-21] MEDS: MELATONIN 5 MG TABLETS PO PRN (21:38)
[2018-10-21] MEDS: THIAMINE HCL 100 MG TABLET (FP) PO SCH (21:38)
[2018-10-22] MEDS: IBUPROFEN 400 MG TABLET (FP) PO PRN (04:01)
[2018-10-22] MEDS: BUPRENORPHINE/NALOXONE 8 MG/2 MG FILM PACKET SL SCH ×2 (06:02→17:43)
[2018-10-22] MEDS: NICOTINE POLACRILEX 4 MG GUM BC PRN ×3 (06:03→21:54)
[2018-10-22] MEDS: cloNIDine HCL 0.1 MG TABLET PO SCH ×2 (10:09→21:52)
[2018-10-22] MEDS: PRENATAL VITAMINS W/ FOLIC ACID TABLET (FP) PO SCH (10:09)
[2018-10-22] MEDS: THIAMINE HCL 100 MG TABLET (FP) PO SCH (21:53)
[2018-10-22] MEDS: MELATONIN 5 MG TABLETS PO PRN (21:54)
[2018-10-23] MEDS: NICOTINE POLACRILEX 4 MG GUM BC PRN ×3 (06:09→21:41)
[2018-10-23] MEDS: BUPRENORPHINE/NALOXONE 8 MG/2 MG FILM PACKET SL SCH ×2 (06:09→17:41)
[2018-10-23] MEDS: IBUPROFEN 400 MG TABLET (FP) PO PRN (06:42)
[2018-10-23] MEDS: cloNIDine HCL 0.1 MG TABLET PO SCH ×2 (10:22→21:39)
[2018-10-23] MEDS: PRENATAL VITAMINS W/ FOLIC ACID TABLET (FP) PO SCH (10:23)
[2018-10-23] MEDS: LIDOCAINE 5% TOPICAL PATCH TP SCH (10:38)
[2018-10-23] MEDS: MELATONIN 5 MG TABLETS PO PRN (21:39)
[2018-10-23] MEDS: THIAMINE HCL 100 MG TABLET (FP) PO SCH (21:39)
[2018-10-23] MEDS ORDERED: LIDOCAINE PATCH REMOVAL MC SCH (22:00)
[2018-10-24] MEDS: IBUPROFEN 400 MG TABLET (FP) PO PRN (05:20)
[2018-10-24] MEDS: BUPRENORPHINE/NALOXONE 8 MG/2 MG FILM PACKET SL SCH (06:03)
[2018-10-24] MEDS: NICOTINE POLACRILEX 4 MG GUM BC PRN (06:05)
[2018-10-24 06:51] VITALS: TEMP 97.8
--- NOTE | 2018-10-24 09:31 | PN ---
Psychiatric Progress Note Vital Signs: Vital Signs Period Temp Pulse Resp BP Sys/Sampson Pulse Ox Last 24 Hr 97.8 F 62-66 18-18 122-132/77-90 Date of Session: 10/24/18 Chief Complaint:: Discharge Note HPI: Patient addressing Alcohol and Opioid Dependence comorbid with Nicotine Dependence ROS: HTN was medically managed Current Medications: Active Medications Generic Name Dose Route Start Last Admin Trade Name Freq PRN Reason Stop Dose Admin Acetaminophen 650 mg 10/16/18 18:30 Tylenol - PO Q4H PRN FEVER Al Hydroxide/Mg Hydroxide 30 ml 10/16/18 18:30 Mylanta Oral Suspension - PO Q6H PRN DYSPEPSIA Buprenorphine/Naloxone 1 each 10/19/18 18:00 10/24/18 06:03 Suboxone 8mg/2mg Sl Film - SL 10/25/18 09:59 1 each BID@0600,1800 FELICE Administration Clonidine 0.2 mg 10/16/18 22:00 10/23/18 21:39 Catapres - PO 0.2 mg BID FELICE Administration Cyclobenzaprine HCl 10 mg 10/17/18 09:41 10/19/18 21:48 Flexeril - PO 10 mg TID PRN Administration MUSCLE SPASMS Eucalyptus/Menthol/Phenol/Sorbitol 1 each 10/16/18 18:30 10/22/18 13:00 Cepastat Lozenge - MM 1 each Q4H PRN Administration SORE THROAT Guaifenesin 10 ml 10/16/18 18:30 Robitussin Dm - PO Q6H PRN COUGH Hydroxyzine Pamoate 50 mg 10/16/18 18:30 Vistaril - PO Q4H PRN AGITATION Ibuprofen 400 mg 10/16/18 18:30 10/24/18 05:20 Motrin - PO 400 mg Q6H PRN Administration Pain level 4-6 Lidocaine 1 patch 10/23/18 10:30 10/23/18 10:38 Lidoderm Patch - TP 1 patch DAILY FELICE Administration Loperamide HCl 4 mg 10/16/18 18:30 Imodium - PO Q6H PRN DIARRHEA Magnesium Citrate 300 ml 10/16/18 18:30 Citroma - PO Q48H PRN CONSTIPATION Magnesium Hydroxide 30 ml 10/16/18 18:30 Milk Of Magnesia - PO DAILY PRN CONSTIPATION Melatonin 5 mg 10/16/18 22:00 10/23/18 21:39 Melatonin PO 5 mg HS PRN Administration INSOMNIA Miscellaneous 1 each 10/23/18 22:00 10/23/18 21:40 Lidoderm Patch Removal MC 1 each DAILY@2200 FELICE Administration Nicotine Polacrilex 4 mg 10/16/18 18:30 10/24/18 06:05 Nicorette Gum - BC 4 mg Q2H PRN Administration NICOTINE REPLACEMENT RX Multivit/Folic Acid/Iron 1 tab 10/17/18 10:00 10/23/18 10:23 Vitamins (Sjr) - PO 1 tab DAILY FELICE Administration Pseudoephedrine/Triprolidine 1 combo 10/16/18 18:30 Actifed - PO Q8H PRN NASAL CONGESTION Thiamine HCl 100 mg 10/16/18 22:00 10/23/18 21:39 Vitamin B1 - PO 100 mg HS FELICE Administration Current Side Effect: No Lab tests ordered: Yes Lab tests reviewed: Yes Provider note:: Patient has completed this program today. He has met his treatment goals and will continue to address his issues in outpatient treatment at [facility] at [address] [place] [address]. Told content writer that from his participation in this program, he has learned not to let his feelings get in the way of his recovery. He is stable for discharge today Total face to face time:: 35 Mental Status Exam - Mental Status Exam Alert and Oriented to: Time, Place, Person Cognitive Function: Fair Patient Appearance: Well Groomed Mood: Hopeful, Euthymic Affect: Appropriate Patient Behavior: Cooperative Speech Pattern: Clear Voice Loudness: Normal Thought Process: Intact, Goal Oriented Thought Disorder: Not Present Hallucinations: Denies Suicidal Ideation: Denies Homicidal Ideation: Denies Insight/Judgement: Fair Sleep: Well Appetite: Good Muscle strength/Tone: Normal Gait/Station: Normal Psychiatric Treatment Plan - Problem List (1) Alcohol dependence Current Visit: Yes (2) Opioid dependence Current Visit: Yes Qualifiers: Substance use status: in remission Qualified Code(s): F11.21 - Opioid dependence, in remission (3) Nicotine dependence Current Visit: Yes Qualifiers: Nicotine product type: cigarettes Substance use status: in withdrawal Qualified Code(s): F17.213 - Nicotine dependence, cigarettes, with withdrawal (4) Essential hypertension Current Visit: Yes Initial treatment plan: Patient is dischaged today and referred to [facility] for outpatient treatment
[2018-10-24] MEDS: LIDOCAINE 5% TOPICAL PATCH TP SCH (09:36)
[2018-10-24] MEDS: cloNIDine HCL 0.1 MG TABLET PO SCH (09:36)
[2018-10-24] MEDS: PRENATAL VITAMINS W/ FOLIC ACID TABLET (FP) PO SCH (09:36)
[2018-10-24 11:17] VITALS: BP 148/74; PULSE 67
--- NOTE | 2018-10-24 14:57 | PN ---
[facility] Progress Note Note: REHAB COMPLETED AND PT DISCHARGED TODAY. ALERT O X 3. PT MET WITH HIS COUNSELOR ,IZABELA TODAY. PT REFERRED TO [facility] FOR SUBOXONE 8 MG/2MG SL BID # 14 AND NARCAN 4MG NS #1 ELECTRONICALLY SENT TO [facility] FOR PT TO LUMBER TAILER AFTER DISCHARGE. PT TO FOLLOW UP WITH DR RIVERA FOR CONTINUED SUBOXONE TREATMENT DISCUSSED. Vital Signs 10/24/18 10:00 Pulse Rate 67 Blood Pressure 148/74 Laboratory Tests 10/16/18 10/17/18 10/17/18 22:32 07:00 07:00 WBC 4.8 RBC 4.10 Hgb 12.5 Hct 37.1 MCV 90.4 MCH 30.5 MCHC 33.7 RDW 16.9 H Plt Count 209 MPV 8.0 Sodium 145 Potassium 4.1 Chloride 109 H Carbon Dioxide 27 Anion Gap 9 BUN 18 Creatinine 1.0 Creat Clearance w eGFR > 60 Random Glucose 108 H Calcium 8.4 L Total Bilirubin 0.6 AST 25 ALT 30 Alkaline Phosphatase 66 Total Protein 5.6 L Albumin 2.9 L Urine Color Ltyellow Urine Appearance Clear Urine pH 7.0 D Ur Specific [place] 1.014 Urine Protein Negative Urine Glucose (UA) Negative Urine Ketones Negative Urine Blood Negative Urine Nitrite Negative Urine Bilirubin Negative Urine Urobilinogen Negative Ur Leukocyte Esterase Negative RPR Titer HIV 1&2 Antibody Screen HIV P24 Antigen 10/17/18 10/17/18 07:00 07:00 WBC RBC Hgb Hct MCV MCH MCHC RDW Plt Count MPV Sodium Potassium Chloride Carbon Dioxide Anion Gap BUN Creatinine Creat Clearance w eGFR Random Glucose Calcium Total Bilirubin AST ALT Alkaline Phosphatase Total Protein Albumin Urine Color Urine Appearance Urine pH Ur Specific [place] Urine Protein Urine Glucose (UA) Urine Ketones Urine Blood Urine Nitrite Urine Bilirubin Urine Urobilinogen Ur Leukocyte Esterase RPR Titer Nonreactive HIV 1&2 Antibody Screen Negative HIV P24 Antigen Negative NAD PLAN:FOLLLOW UP WITH DR RIVERA FOR MEDICAL MANAGEMENT FOLLOW UP WITH [facility] FOR CD TREATMENT RECOMMENDED.
== END 2018-10-24 10:00 | disposition home or self-care (01) | DRG 772 ==
LOC: YASAS 13:28 → Y5N 18:56
PROVIDERS: ADMIT Psychiatry & Neurology Psychiatry; ATTEND Psychiatry & Neurology Psychiatry
PROC: HZ42ZZZ Group Counseling for Substance Abuse Treatment, Cognitive-Behavioral (ICD-10-PCS; principal; 2018-10-16)
DX: F11.20 Opioid dependence, uncomplicated (principal); F10.20 Alcohol dependence, uncomplicated; F17.213 Nicotine dependence, cigarettes, with withdrawal; I10 Essential (primary) hypertension; Z51.81 Encounter for therapeutic drug level monitoring; Z88.0 Allergy status to penicillin; Z88.8 Allergy status to other drugs, medicaments and biological substances; Z91.013 Allergy to seafood
CPT/HCPCS: 36415; 80053; 81003; 85027; 86593; 87389; J0735

== ENCOUNTER 2018-12-20 16:05 | Inpatient (IN) | payer OTHER ==
[2018-12-20 17:16] VITALS: BMI 30.4
--- NOTE | 2018-12-20 18:58 | HP ---
COWS - Scale Resting Pulse: 0= MO 80 or Below Sweatin= Chills/Flushing GI Upset > 30mins: 2= Nausea/Diarrhea Yawning Observation: 4= Several Times/Minute Anxiety or Irritability: 0= None CIWA Score - Admission Criteria [facility]ASAS Guidelines: Admission for Medically Managed Detox: Requires at least one of the followin. CIWA greater than 12 2. Seizures within the past 24 hours 3. Delirium tremens within the past 24 hours 4. Hallucinations within the past 24 hours 5. Acute intervention needed for co occurring medical disorder 6. Acute intervention needed for co occurring psychiatric disorder 7. Severe withdrawal that cannot be handled at a lower level of care (continued vomiting, continued diarrhea, abnormal vital signs) requiring intravenous medication and/or fluids 8. Admission ROS [facility] Chief Complaint: " heroin and alcohol detox" Allergies/Adverse Reactions: Allergies Allergy/AdvReac Type Severity Reaction Status Date / Time fish derived Allergy Severe Hives Verified 10/16/18 19:00 lisinopril Allergy Severe Swelling Verified 10/17/18 09:34 shellfish derived Allergy Severe Hives Verified 10/16/18 19:00 Penicillins Allergy Mild Hives Verified 10/16/18 16:26 seafood Allergy Severe Hives Uncoded 10/16/18 16:25 History of Present Illness: 48 yo male with - Ebola screening Have you traveled outside of the country in the last 21 days: No (N) Have you had contact with anyone from an Ebola affected area: No Have you been sick,other than usual withdrawal symptoms: No Do you have a fever: No Patient History - Patient Medical History Hx Anemia: No Hx Asthma: No Hx Chronic Obstructive Pulmonary Disease (COPD): No Hx Cancer: No Hx Cardiac Disorders: No Hx Congestive Heart Failure: No Hx Hypertension: Yes (Pt DID NOT BRING MEDICATION WITH HIM) Hx Hypercholesterolemia: No Hx Pacemaker: No HX Cerebrovascular Accident: No Hx Seizures: No Hx Dementia: No Hx Diabetes: No Hx Gastrointestinal Disorders: No Hx Liver Disease: No Hx Genitourinary Disorders: No Hx Sexually Transmitted Disorders: No Hx Renal Disease (ESRD): No Hx Thyroid Disease: No Hx Human Immunodeficiency Virus (HIV): No (last 11/18 negative) Hx Hepatitis C: No (denies) Hx Depression: No Hx Suicide Attempt: No (denies) Hx Bipolar Disorder: No Hx Schizophrenia: No - Patient Surgical History Past Surgical History: No Hx Neurologic Surgery: No Hx Cataract Extraction: No Hx Cardiac Surgery: No Hx Lung Surgery: No Hx Breast Surgery: No Hx Breast Biopsy: No Hx Abdominal Surgery: No Hx Appendectomy: No Hx Cholecystectomy: No Hx Genitourinary Surgery: No Hx Section: No Hx Orthopedic Surgery: No - PPD History Date: 04/28/17 Results: 0 mm - Smoking Cessation Smoking history: Current every day smoker Have you smoked in the past 12 months: Yes Aproximately how many cigarettes per day: 10 Cigars Per Day: 0 Hx Chewing Tobacco Use: No Family Disease History - Family Disease History Family Disease History: Heart Disease: Mother, Other: Father (/alcohol) , Brother (no brother) Admission Physical Exam [facility] - Vital Signs Vital Signs: Vital Signs - 24 hr 12/20/18 17:14 Temperature 99.2 F Pulse Rate 73 Respiratory 18 Rate Blood Pressure 151/89 BHS Breath Alcohol Content Breath Alcohol Content: 0 Urine Drug Screen - Results Drug Screen Negative: No Urine Drug Screen Results: CHANDRAKANT-Cocaine, OPI-Opiates, FEN-Fentanyl
--- NOTE | 2018-12-20 21:36 | HP ---
COWS - Scale Resting Pulse: 0= [place] 80 or Below Sweatin= Chills/Flushing Restless Observation: 0= Sits Still Pupil Size: 1= Pupils >than Normal Bone or Joint Aches: 0= None Runny Nose/ Eye Tearin= Runny Nose/Eyes GI Upset > 30mins: 2= Nausea/Diarrhea Tremor Observation: 1= Tremor [place], Not Seen Yawning Observation: 4= Several Times/Minute Anxiety or Irritability: 1=Feels Anxious/Irritable Goose Flesh Skin: 0=Smooth Skin COWS Score: 12 CIWA Score Nausea/Vomitin Muscle Tremors: 2 Anxiety: 2 Agitation: 0-Normal Activity Paroxysmal Sweats: 2 Orientation: 0-Oriented Tacttile Disturbances: 0-None Auditory Disturbances: 0-None Visual Disturbances: 1-Very Mild Sensitivity Headache: 0-None Present CIWA-Ar Total Score: 10 - Admission Criteria OASAS Guidelines: Admission for Medically Managed Detox: Requires at least one of the followin. CIWA greater than 12 2. Seizures within the past 24 hours 3. Delirium tremens within the past 24 hours 4. Hallucinations within the past 24 hours 5. Acute intervention needed for co occurring medical disorder 6. Acute intervention needed for co occurring psychiatric disorder 7. Severe withdrawal that cannot be handled at a lower level of care (continued vomiting, continued diarrhea, abnormal vital signs) requiring intravenous medication and/or fluids 8. Admission ROS [facility] Chief Complaint: alcohol and heroin detox Allergies/Adverse Reactions: Allergies Allergy/AdvReac Type Severity Reaction Status Date / Time fish derived Allergy Severe Hives Verified 12/20/18 21:04 lisinopril Allergy Severe Swelling Verified 12/20/18 21:04 shellfish derived Allergy Severe Hives Verified 12/20/18 21:04 Penicillins Allergy Mild Hives Verified 12/20/18 21:04 seafood Allergy Severe Hives Uncoded 12/20/18 21:04 History of Present Illness: 48 yo male with hx heroin (nasal ), nicotine, and alcohol dependence is here seeking detox, self referred, utox positive for shane, FEN, opi . PMHX: HTN. Denies psych hx. Longest period of sobriety six months. Patient reoprts he was on MAT on suboxone and stopped attending two months ago and resume using heroin. Exam Limitations: No Limitations - Ebola screening Have you traveled outside of the country in the last 21 days: No (N) Have you had contact with anyone from an Ebola affected area: No Have you been sick,other than usual withdrawal symptoms: No Do you have a fever: No - Review of Systems Constitutional: Chills, Changes in sleep, Weakness EENT: reports: Tearing, Nose Congestion Respiratory: reports: No Symptoms reported Cardiac: reports: No Symptoms Reported GI: reports: Nausea, Poor Appetite, Abdominal cramping : reports: No Symptoms Reported Musculoskeletal: reports: Back Pain, Joint Pain Integumentary: reports: No Symptoms Reported Neuro: reports: No Symptoms reported Endocrine: reports: No Symptoms Reported Hematology: reports: No Symptoms Reported Psychiatric: reports: Orientated x3, Depressed Other Systems: Reviewed and Negative Patient History - Patient Medical History Hx Anemia: No Hx Asthma: No Hx Chronic Obstructive Pulmonary Disease (COPD): No Hx Cancer: No Hx Cardiac Disorders: No Hx Congestive Heart Failure: No Hx Hypertension: Yes (Pt DID NOT BRING MEDICATION WITH HIM) Hx Hypercholesterolemia: No Hx Pacemaker: No HX Cerebrovascular Accident: No Hx Seizures: No Hx Dementia: No Hx Diabetes: No Hx Gastrointestinal Disorders: No Hx Liver Disease: No Hx Genitourinary Disorders: No Hx Sexually Transmitted Disorders: No Hx Renal Disease (ESRD): No Hx Thyroid Disease: No Hx Human Immunodeficiency Virus (HIV): No (last 11/18 negative) Hx Hepatitis C: No (denies) Hx Depression: No Hx Suicide Attempt: No (denies) Hx Bipolar Disorder: No Hx Schizophrenia: No - Patient Surgical History Past Surgical History: No Hx Neurologic Surgery: No Hx Cataract Extraction: No Hx Cardiac Surgery: No Hx Lung Surgery: No Hx Breast Surgery: No Hx Breast Biopsy: No Hx Abdominal Surgery: No Hx Appendectomy: No Hx Cholecystectomy: No Hx Genitourinary Surgery: No Hx Section: No Hx Orthopedic Surgery: No - PPD History Previous Implant?: Yes Documented Results: Negative w/proof Date: 04/28/17 Results: 0 mm PPD to be Administered?: Yes - Smoking Cessation Smoking history: Current every day smoker Have you smoked in the past 12 months: Yes Aproximately how many cigarettes per day: 10 Cigars Per Day: 0 Hx Chewing Tobacco Use: No Initiated information on smoking cessation: Yes 'Breaking Loose' booklet given: 12/20/18 - Substance & Tx. History Hx Alcohol Use: Yes Hx Substance Use: Yes Substance Use Type: Alcohol, Heroin Hx Substance Use Treatment: Yes (detox [facility] 10/16/18 10/24/18) - Substances Abused Alcohol Route: Oral Frequency: Daily Amount used: liquor- 1pint, beer- 1 six pack Age of first use: 22 Date of Last Use: 12/20/18 Heroin Route: Inhalation Frequency: Daily Amount used: 12 bags Age of first use: 33 Date of Last Use: 12/20/18 Family Disease History - Family Disease History Family Disease History: Heart Disease: Mother, Other: Father (/alcohol) , Brother (no brother) Admission Physical Exam [facility] - Vital Signs Vital Signs: Vital Signs - 24 hr 12/20/18 17:14 Temperature 99.2 F Pulse Rate 73 Respiratory 18 Rate Blood Pressure 151/89 - Physical General Appearance: Yes: Disheveled, Mild Distress, Sweating, Anxious HEENTM: Yes: EOMI, Hearing grossly Normal, Normal ENT Inspection, Pharynx Normal , Tm's normal, Rhinorrhea, Other (tearing) Respiratory: Yes: Chest Non-Tender, Lungs Clear, Normal Breath Sounds, No Respiratory Distress, No Accessory Muscle Use Neck: Yes: No masses,lesions,Nodules, Trachea in good position Breast: Yes: Breast Exam Deferred Cardiology: Yes: Regular Rhythm, Regular Rate Abdominal: Yes: Normal Bowel Sounds, Non Tender, Flat Genitourinary: Yes: Within Normal Limits Back: Yes: Normal Inspection Musculoskeletal: Yes: full range of Motion, Gait Steady, Pelvis Stable, Back pain Extremities: Yes: Normal Capillary Refill, Normal Inspection, Normal Range of Motion, Non-Tender 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, Fully Oriented, Alert, Motor Strength 5/5, Depressed Affect Integumentary: Yes: Normal Color, Warm, Diaphoresis Lymphatic: Yes: Within Normal Limits - Diagnostic (1) Alcohol dependence with uncomplicated withdrawal Current Visit: Yes Status: Acute (2) Opioid dependence with withdrawal Current Visit: Yes Status: Acute (3) Essential hypertension Current Visit: Yes Status: Chronic (4) Nicotine dependence Current Visit: Yes Status: Chronic Qualifiers: Nicotine product type: cigarettes Substance use status: in withdrawal Qualified Code(s): F17.213 - Nicotine dependence, cigarettes, with withdrawal Cleared for Admission [facility] - Detox or Rehab [facility] Level of Care: Medically Managed Detox Regimen/Protocol: Methadone/Librium [facility] Breath Alcohol Content Breath Alcohol Content: 0 Urine Drug Screen - Results Drug Screen Negative: No Urine Drug Screen Results: SHANE-Cocaine, OPI-Opiates, FEN-Fentanyl Inpatient Rehab Admission - Rehab Decision to Admit Inpatient rehab admission?: No
[2018-12-20] MEDS ORDERED: chlordiazePOXIDE HCL 25 MG CAPSULE PO PRN (21:41)
[2018-12-20] MEDS ORDERED: BISMUTH SUBSALICYLATE 524 MG/30 ML UD PO PRN (21:41)
[2018-12-20] MEDS ORDERED: cloNIDine HCL 0.1 MG TABLET PO PRN (21:41)
[2018-12-20] MEDS ORDERED: MENTHOL/PHENOL 1 EACH UD MM PRN (21:41)
[2018-12-20] MEDS ORDERED: MAGNESIUM HYDROX 2400MG/30ML ORAL SUSPENSION 30 ML CUP PO PRN (21:41)
[2018-12-20] MEDS ORDERED: METHOCARBAMOL 500 MG TABLET PO PRN (21:41)
[2018-12-20] MEDS ORDERED: MAG HYDROX/AL HYDROX/SIMETH 30 ML UNIT-DOSE CUP PO PRN (21:41)
[2018-12-20] MEDS ORDERED: MAGNESIUM CITRATE 300 ML BOTTLE PO PRN (21:41)
[2018-12-20] MEDS ORDERED: ACETAMINOPHEN 325 MG TABLET (FP) PO PRN ×2 (21:41)
[2018-12-20] MEDS ORDERED: METHADONE HCL 10 MG TABLET (FOR DETOX USE ONLY) PO ONE (23:00)
[2018-12-20] MEDS: chlordiazePOXIDE HCL 25 MG CAPSULE PO SCH (23:05)
[2018-12-20] MEDS: THIAMINE HCL 100 MG TABLET (FP) PO SCH (23:05)
[2018-12-20 23:45] LABS: PH,URINE 5.5 (5.0-8.0); URINE APPEARANCE TURBID; URINE BILIRUBIN NEGATIVE (<2.0 mg/dL); URINE COLOR YELLOW; URINE GLUCOSE (UA) NEGATIVE (NEGATIVE); URINE KETONE TRACE (NEGATIVE); URINE LEUK ESTERASE NEGATIVE (NEGATIVE); URINE NITRITE NEGATIVE (NEGATIVE); URINE PROTEIN NEGATIVE (NEGATIVE)
[2018-12-21] MEDS: chlordiazePOXIDE HCL 25 MG CAPSULE PO SCH ×4 (05:45→22:20)
[2018-12-21] MEDS ORDERED: METHADONE HCL 10 MG TABLET (FOR DETOX USE ONLY) PO ONE (10:00)
[2018-12-21] MEDS: PRENATAL VITAMINS W/ FOLIC ACID TABLET (FP) PO SCH (10:33)
[2018-12-21] MEDS: IBUPROFEN 400 MG TABLET (FP) PO PRN (10:33)
[2018-12-21] MEDS ORDERED: NICOTINE POLACRILEX 2 MG GUM BUC PRN (10:44)
[2018-12-21 11:26] LABS: HEMATOCRIT 39.4 % (35.4-49); HEMOGLOBIN 13.6 GM/dL (11.7-16.9); MCH 30.7 pg (25.7-33.7); MCHC 34.4 g/dl (32.0-35.9); MEAN CELL VOLUME 89.2 fl (80-96); MEAN PLT VOLUME 8.5 fl (7.5-11.1); PLATELET COUNT 187 K/MM3 (134-434); RBC 4.42 M/mm3 (4.00-5.60); RDW 15.1 % (11.9-15.9); WHITE BLOOD COUNT 3.5 K/mm3 (4.0-10.0)
[2018-12-21 11:57] LABS: ALBUMIN 3.5 g/dl (3.4-5.0); ALK PHOS 73 U/L (45-117); ANION GAP 7 MMOL/L (8-16); BILIRUBIN,TOTAL 0.4 mg/dL (0.2-1); BLOOD UREA NITROGEN 12 mg/dL (7-18); CALCIUM 8.4 mg/dL (8.5-10.1); CHLORIDE 111 mmol/L (98-107); CO2 28 mmol/L (21-32); GLUCOSE,RANDOM 97 mg/dL (74-106); POTASSIUM 3.8 mmol/L (3.5-5.1); SGOT/AST 35 U/L (15-37); SGPT/ALT 35 U/L (13-61); SODIUM 145 mmol/L (136-145); TOT PROT 6.3 g/dl (6.4-8.2)
[2018-12-21] MEDS: LIDOCAINE 5% TOPICAL PATCH TP SCH (13:00)
--- NOTE | 2018-12-21 13:14 | PN ---
S CIWA - CIWA Score Nausea/Vomitin Muscle Tremors: 2 Anxiety: 2 Agitation: 2 Paroxysmal Sweats: 1-Minimal Palms Moist Orientation: 0-Oriented Tacttile Disturbances: 1-Very Mild Itch/Numbness Auditory Disturbances: 1-Very Mild Visual Disturbances: 0-None Headache: 2-Mild CIWA-Ar Total Score: 13 [facility] COWS - Scale Resting Pulse: 0= [place] 80 or Below Sweatin= Chills/Flushing Restless Observation: 3= Extraneous Movement Pupil Size: 1= Pupils >than Normal Bone or Joint Aches: 2= Severe Diffuse Aches Runny Nose/ Eye Tearin= Runny Nose/Eyes GI Upset > 30mins: 2= Nausea/Diarrhea Tremor Observation of Outstretched Hands: 2= Slight Tremor Visible Yawning Observation: 1= 1-2x During Session Anxiety or Irritability: 2=Irritable/Anxious Goose Flesh Skin: 0=Smooth Skin COWS Score: 16 S Progress Note (SOAP) Subjective: alert,irritable,anxious,interrupted sleep,tremor,pain in the body and back Objective: 12/21/18 13:12 Vital Signs Temperature 97.9 F 12/21/18 09:41 Pulse Rate 70 12/21/18 09:41 Respiratory Rate 18 12/21/18 09:41 Blood Pressure 139/97 12/21/18 09:41 O2 Sat by Pulse Oximetry (%) 12/21/18 13:13 Laboratory Last Values WBC 3.5 K/mm3 (4.0-10.0) L 12/21/18 07:00 RBC 4.42 M/mm3 (4.00-5.60) 12/21/18 07:00 Hgb 13.6 GM/dL (11.7-16.9) 12/21/18 07:00 Hct 39.4 % (35.4-49) 12/21/18 07:00 MCV 89.2 fl (80-96) 12/21/18 07:00 MCH 30.7 pg (25.7-33.7) 12/21/18 07:00 MCHC 34.4 g/dl (32.0-35.9) 12/21/18 07:00 RDW 15.1 % (11.9-15.9) D 12/21/18 07:00 Plt Count 187 K/MM3 (134-434) 12/21/18 07:00 MPV 8.5 fl (7.5-11.1) 12/21/18 07:00 Sodium 145 mmol/L (136-145) 12/21/18 07:00 Potassium 3.8 mmol/L (3.5-5.1) 12/21/18 07:00 Chloride 111 mmol/L (98-107) H 12/21/18 07:00 Carbon Dioxide 28 mmol/L (21-32) 12/21/18 07:00 Anion Gap 7 MMOL/L (8-16) L 12/21/18 07:00 BUN 12 mg/dL (7-18) 12/21/18 07:00 Creatinine 1.0 mg/dL (0.55-1.3) 12/21/18 07:00 Creat Clearance w eGFR 79.09 (>60) 12/21/18 07:00 Random Glucose 97 mg/dL (74-106) 12/21/18 07:00 Calcium 8.4 mg/dL (8.5-10.1) L 12/21/18 07:00 Total Bilirubin 0.4 mg/dL (0.2-1) 12/21/18 07:00 AST 35 U/L (15-37) 12/21/18 07:00 ALT 35 U/L (13-61) 12/21/18 07:00 Alkaline Phosphatase 73 U/L (45-117) 12/21/18 07:00 Total Protein 6.3 g/dl (6.4-8.2) L 12/21/18 07:00 Albumin 3.5 g/dl (3.4-5.0) 12/21/18 07:00 Urine Color Yellow 12/20/18 22:00 Urine Appearance Turbid 12/20/18 22:00 Urine pH 5.5 (5.0-8.0) D 12/20/18 22:00 Ur Specific [place] 1.032 (1.010-1.035) 12/20/18 22:00 Urine Protein Negative (NEGATIVE) 12/20/18 22:00 Urine Glucose (UA) Negative (NEGATIVE) 12/20/18 22:00 Urine Ketones Trace (NEGATIVE) H 12/20/18 22:00 Urine Blood Negative (NEGATIVE) 12/20/18 22:00 Urine Nitrite Negative (NEGATIVE) 12/20/18 22:00 Urine Bilirubin Negative (<2.0 mg/dL) 12/20/18 22:00 Urine Urobilinogen 1.0 mg/dL (0.2-1.0) 12/20/18 22:00 Ur Leukocyte Esterase Negative (NEGATIVE) 12/20/18 22:00 RPR Titer Nonreactive (NONREACTIVE) 12/21/18 07:00 Assessment: 12/21/18 13:13 withdrawal symptom Plan: continue detox
[2018-12-21] MEDS: THIAMINE HCL 100 MG TABLET (FP) PO SCH (22:20)
[2018-12-21] MEDS: LIDOCAINE PATCH REMOVAL MC SCH (23:21)
[2018-12-22] MEDS: chlordiazePOXIDE HCL 25 MG CAPSULE PO SCH ×3 (05:20→18:07)
[2018-12-22] MEDS: IBUPROFEN 400 MG TABLET (FP) PO PRN ×2 (09:44→18:50)
[2018-12-22] MEDS: LIDOCAINE 5% TOPICAL PATCH TP SCH (09:45)
[2018-12-22] MEDS ORDERED: METHADONE HCL 10 MG TABLET (FOR DETOX USE ONLY) PO ONE (10:00)
[2018-12-22] MEDS: PRENATAL VITAMINS W/ FOLIC ACID TABLET (FP) PO SCH (10:31)
--- NOTE | 2018-12-22 16:15 | PN ---
[facility] CIWA - CIWA Score Nausea/Vomitin-No Nausea/No Vomiting Muscle Tremors: 3 Anxiety: 3 Agitation: 4-Moderately Restless Paroxysmal Sweats: 2 Orientation: 0-Oriented Tacttile Disturbances: 0-None Auditory Disturbances: 0-None Visual Disturbances: 0-None Headache: 0-None Present CIWA-Ar Total Score: 12 B[facility] COWS - Scale Resting Pulse: 0= [place] 80 or Below Sweatin= Chills/Flushing Restless Observation: 1= Difficult to Sit Still Pupil Size: 0= Normal to Room Light Bone or Joint Aches: 2= Severe Diffuse Aches Runny Nose/ Eye Tearin= Nasal Congestion GI Upset > 30mins: 0= None Tremor Observation of Outstretched Hands: 2= Slight Tremor Visible Yawning Observation: 1= 1-2x During Session Anxiety or Irritability: 2=Irritable/Anxious Goose Flesh Skin: 0=Smooth Skin COWS Score: 10 [facility] Progress Note (SOAP) Subjective: BAck pain requesting cane Objective: 12/22/18 16:14 A & O x 3 ambulating steadily Anxious Vital Signs Temperature 97.5 F L 12/22/18 09:24 Pulse Rate 78 12/22/18 09:24 Respiratory Rate 18 12/22/18 09:24 Blood Pressure 142/91 12/22/18 09:24 O2 Sat by Pulse Oximetry (%) Assessment: 12/22/18 16:15 withdrawal sx Plan: continue detox cane for ambulation per request continue PRN meds for pain
[2018-12-22] MEDS: chlordiazePOXIDE HCL 10 MG CAPSULE PO SCH (22:06)
[2018-12-22] MEDS: THIAMINE HCL 100 MG TABLET (FP) PO SCH (22:06)
[2018-12-22] MEDS: LIDOCAINE PATCH REMOVAL MC SCH (22:07)
[2018-12-22] MEDS: MELATONIN 5 MG TABLETS PO PRN (22:07)
[2018-12-22] MEDS ORDERED: chlordiazePOXIDE HCL 10 MG CAPSULE PO PRN (23:00)
[2018-12-23] MEDS: chlordiazePOXIDE HCL 10 MG CAPSULE PO SCH ×3 (05:28→17:33)
[2018-12-23] MEDS ORDERED: METHADONE HCL 10 MG TABLET (FOR DETOX USE ONLY) PO ONE (10:00)
[2018-12-23] MEDS: PRENATAL VITAMINS W/ FOLIC ACID TABLET (FP) PO SCH (10:43)
[2018-12-23] MEDS: LIDOCAINE 5% TOPICAL PATCH TP SCH (10:44)
[2018-12-23] MEDS: IBUPROFEN 400 MG TABLET (FP) PO PRN ×2 (10:46→17:33)
[2018-12-23] MEDS ORDERED: cloNIDine HCL 0.1 MG TABLET PO PRN (13:48)
--- NOTE | 2018-12-23 13:50 | PN ---
[facility] Progress Note (SOAP) Subjective: Sweating, chills, tremor, interrupted sleep Objective: 12/23/18 13:45 Last Vital Signs Temp Pulse Resp BP Pulse Ox 98.0 F 75 18 140/92 12/23/18 13:05 12/23/18 13:05 12/23/18 13:05 12/23/18 13:05 B/P noted (h/o htn, takes med at home) Laboratory Tests 12/20/18 12/21/18 12/21/18 22:00 07:00 07:00 WBC 3.5 L RBC 4.42 Hgb 13.6 Hct 39.4 MCV 89.2 MCH 30.7 MCHC 34.4 RDW 15.1 D Plt Count 187 MPV 8.5 Sodium 145 Potassium 3.8 Chloride 111 H Carbon Dioxide 28 Anion Gap 7 L BUN 12 Creatinine 1.0 Creat Clearance w eGFR 79.09 Random Glucose 97 Calcium 8.4 L Total Bilirubin 0.4 AST 35 ALT 35 Alkaline Phosphatase 73 Total Protein 6.3 L Albumin 3.5 Urine Color Yellow Urine Appearance Turbid Urine pH 5.5 D Ur Specific [place] 1.032 Urine Protein Negative Urine Glucose (UA) Negative Urine Ketones Trace H Urine Blood Negative Urine Nitrite Negative Urine Bilirubin Negative Urine Urobilinogen 1.0 Ur Leukocyte Esterase Negative RPR Titer 12/21/18 07:00 WBC RBC Hgb Hct MCV MCH MCHC RDW Plt Count MPV Sodium Potassium Chloride Carbon Dioxide Anion Gap BUN Creatinine Creat Clearance w eGFR Random Glucose Calcium Total Bilirubin AST ALT Alkaline Phosphatase Total Protein Albumin Urine Color Urine Appearance Urine pH Ur Specific [place] Urine Protein Urine Glucose (UA) Urine Ketones Urine Blood Urine Nitrite Urine Bilirubin Urine Urobilinogen Ur Leukocyte Esterase RPR Titer Nonreactive Labs reviewed Assessment: 12/23/18 13:46 Withdrawal symptoms HTN history Plan: Continue detox Encouraged PO water hydration History of HTN: clonidine 0.1mg PO q8hr prn if b/p > 140/90. Resume antihypertensive medication when discharged and follow up with PCP within 1-2 weeks.
[2018-12-23] MEDS: THIAMINE HCL 100 MG TABLET (FP) PO SCH (22:25)
[2018-12-23] MEDS: LIDOCAINE PATCH REMOVAL MC SCH (22:25)
[2018-12-23] MEDS: MELATONIN 5 MG TABLETS PO PRN (22:26)
[2018-12-23] MEDS ORDERED: chlordiazePOXIDE HCL 10 MG CAPSULE PO SCH (23:00)
[2018-12-24] MEDS ORDERED: METHADONE HCL 5 MG TABLET (FOR DETOX USE ONLY) PO ONE (06:00)
[2018-12-24 09:31] VITALS: BP 147/78; PULSE 90; TEMP 98.6
[2018-12-24] MEDS: LIDOCAINE 5% TOPICAL PATCH TP SCH (09:55)
[2018-12-24] MEDS: PRENATAL VITAMINS W/ FOLIC ACID TABLET (FP) PO SCH (09:55)
--- NOTE | 2018-12-24 21:23 | DS ---
[facility] Detox Discharge Summary Admission Date: 12/20/18 Discharge Date: 12/24/18 - History Present History: Alcohol Dependence, Opioid Dependence Additional Comments: PATIENT REPORTS THAT HE WILL APPLY FOR REHAB ADMISSION ON HIS OWN AT A LATER DATE. PRIOR TO DISCHARGE, PATIENT REPORTS THAT HE HAS SOME OF SUPPLY OF PRESCRIBED SUBOXONE AT HOME, ALTHOUGH HE HAD NOT TAKEN IT FOR APPROX. THE ONE WEEK PRIOR TO THIS DETOX ADMISSION. PATIENT IS HERE FOR DETOX FROM [facility] ( [facility]). PATIENT ADVISED TO CONSULT PRESCRIBING MEDICAL PROVIDER (DR. RIVERA, [place], [place]) AFTER DISCHARGE FROM DETOX UNIT PRIOR TO RESUMING TAKING SUBOXONE. PATIENT VERBALIZED UNDERSTANDING OF RECOMMENDATION. PATIENT WAS DISCHARGED FROM DETOX UNIT IN STABLE MEDICAL CONDITION. Pertinent Past History: HTN, Nicotine Dependence, History of Suboxone Maintenance Therapy. - Physical Exam Results Vital Signs: Vital Signs Temperature 98.6 F 12/24/18 09:30 Pulse Rate 90 12/24/18 09:30 Respiratory Rate 16 12/24/18 09:30 Blood Pressure 147/78 12/24/18 09:30 O2 Sat by Pulse Oximetry (%) Pertinent Admission Physical Exam Findings: WITHDRAWAL SYMPTOMS. Laboratory Tests 12/20/18 12/21/18 12/21/18 22:00 07:00 07:00 WBC 3.5 L RBC 4.42 Hgb 13.6 Hct 39.4 MCV 89.2 MCH 30.7 MCHC 34.4 RDW 15.1 D Plt Count 187 MPV 8.5 Sodium 145 Potassium 3.8 Chloride 111 H Carbon Dioxide 28 Anion Gap 7 L BUN 12 Creatinine 1.0 Creat Clearance w eGFR 79.09 Random Glucose 97 Calcium 8.4 L Total Bilirubin 0.4 AST 35 ALT 35 Alkaline Phosphatase 73 Total Protein 6.3 L Albumin 3.5 Urine Color Yellow Urine Appearance Turbid Urine pH 5.5 D Ur Specific [place] 1.032 Urine Protein Negative Urine Glucose (UA) Negative Urine Ketones Trace H Urine Blood Negative Urine Nitrite Negative Urine Bilirubin Negative Urine Urobilinogen 1.0 Ur Leukocyte Esterase Negative RPR Titer 12/21/18 07:00 WBC RBC Hgb Hct MCV MCH MCHC RDW Plt Count MPV Sodium Potassium Chloride Carbon Dioxide Anion Gap BUN Creatinine Creat Clearance w eGFR Random Glucose Calcium Total Bilirubin AST ALT Alkaline Phosphatase Total Protein Albumin Urine Color Urine Appearance Urine pH Ur Specific [place] Urine Protein Urine Glucose (UA) Urine Ketones Urine Blood Urine Nitrite Urine Bilirubin Urine Urobilinogen Ur Leukocyte Esterase RPR Titer Nonreactive LABS NOTED. - Treatment Hospital Course: Detox Protocol Followed, Detoxed Safely, Responded well, Discharged Condition Good Patient has Accepted a Rehab Referral to: PT. WILL APPLY FOR REHAB ADMSSION ON HIS OWN AT A LATER DATE. - Medication Discharge Medications: Ambulatory Orders NK [No Known Home Medication] 12/20/18 - Diagnosis (1) Alcohol dependence with uncomplicated withdrawal Status: Acute (2) Opioid dependence with withdrawal Status: Acute (3) Essential hypertension Status: Chronic (4) Nicotine dependence Status: Chronic Qualifiers: Nicotine product type: cigarettes Substance use status: in withdrawal Qualified Code(s): F17.213 - Nicotine dependence, cigarettes, with withdrawal - AMA Did Patient Leave Against Medical Advice: No
== END 2018-12-24 10:13 | disposition home or self-care (01) | DRG 773 ==
LOC: YASAS 16:05 → Y6N 20:56
PROVIDERS: ADMIT Surgery; ATTEND Surgery
PROC: HZ2ZZZZ Detoxification Services for Substance Abuse Treatment (ICD-10-PCS; principal; 2018-12-20)
DX: F10.230 Alcohol dependence with withdrawal, uncomplicated (principal); F11.23 Opioid dependence with withdrawal; F17.213 Nicotine dependence, cigarettes, with withdrawal; I10 Essential (primary) hypertension; Z99.89 Dependence on other enabling machines and devices; Z88.8 Allergy status to other drugs, medicaments and biological substances; Z91.013 Allergy to seafood
CPT/HCPCS: 36415; 80053; 81003; 85027; 86593; J0735

== ENCOUNTER 2019-08-09 15:05 | Inpatient (IN) | payer OTHER ==
[2019-08-09 18:13] VITALS: BMI 36.8
--- NOTE | 2019-08-09 22:58 | HP ---
CIWA Score - Admission Criteria OASAS Guidelines: Admission for Medically Managed Detox: Requires at least one of the followin. CIWA greater than 12 2. Seizures within the past 24 hours 3. Delirium tremens within the past 24 hours 4. Hallucinations within the past 24 hours 5. Acute intervention needed for co occurring medical disorder 6. Acute intervention needed for co occurring psychiatric disorder 7. Severe withdrawal that cannot be handled at a lower level of care (continued vomiting, continued diarrhea, abnormal vital signs) requiring intravenous medication and/or fluids 8. Admitting History and Physical - Smoking History Smoking history: Current every day smoker Have you smoked in the past 12 months: Yes Aproximately how many cigarettes per day: 10 - Alcohol/Substance Use Hx Alcohol Use: Yes Admission ROS [facility] Allergies/Adverse Reactions: Allergies Allergy/AdvReac Type Severity Reaction Status Date / Time fish derived Allergy Severe Hives Verified 08/09/19 18:00 lisinopril Allergy Severe Swelling Verified 08/09/19 18:00 shellfish derived Allergy Severe Hives Verified 08/09/19 18:00 Penicillins Allergy Mild Hives Verified 08/09/19 18:00 seafood Allergy Severe Hives Uncoded 08/09/19 18:00 - Ebola screening Have you traveled outside of the country in the last 21 days: No (N) Have you had contact with anyone from an Ebola affected area: No Do you have a fever: No Patient History - Patient Medical History Hx Anemia: No Hx Asthma: No Hx Chronic Obstructive Pulmonary Disease (COPD): No Hx Cancer: No Hx Cardiac Disorders: No Hx Congestive Heart Failure: No Hx Hypertension: Yes (Pt DID NOT BRING MEDICATION WITH HIM) Hx Hypercholesterolemia: No Hx Pacemaker: No HX Cerebrovascular Accident: No Hx Seizures: No Hx Dementia: No Hx Diabetes: No Hx Gastrointestinal Disorders: No Hx Liver Disease: No Hx Genitourinary Disorders: No Hx Sexually Transmitted Disorders: No Hx Renal Disease (ESRD): No Hx Thyroid Disease: No Hx Human Immunodeficiency Virus (HIV): No (last 11/18 negative) Hx Hepatitis C: No (denies) Hx Depression: No Hx Suicide Attempt: No (denies) Hx Bipolar Disorder: No Hx Schizophrenia: No - Patient Surgical History Past Surgical History: No Hx Neurologic Surgery: No Hx Cataract Extraction: No Hx Cardiac Surgery: No Hx Lung Surgery: No Hx Breast Surgery: No Hx Breast Biopsy: No Hx Abdominal Surgery: No Hx Appendectomy: No Hx Cholecystectomy: No Hx Genitourinary Surgery: No Hx Section: No Hx Orthopedic Surgery: No - PPD History Date: 04/28/17 Results: 0 mm - Smoking Cessation Smoking history: Current every day smoker Have you smoked in the past 12 months: Yes Aproximately how many cigarettes per day: 10 Cigars Per Day: 0 Hx Chewing Tobacco Use: No - Substances abused Heroin Substance route: Inhalation Frequency: Daily Amount used: 10 bags Age of first use: 28 Date of last use: 08/09/19 Alcohol Substance route: Oral Frequency: Daily Amount used: half a pint of A&J, 3 16 ounces of Budweiser Age of first use: 13 Date of last use: 08/09/19 Admission Physical Exam [facility] - Vital Signs Vital Signs: Vital Signs - 24 hr 08/09/19 17:59 Temperature 98.3 F Pulse Rate 101 H Respiratory 16 Rate Blood Pressure 145/96 Breathalyzer - Breathalyzer Breathalyzer: 0 Urine Drug Screen - Test Device Lot number: [id number] Expiration date: 03/31/21 - Control Is test valid?: Yes - Results Drug screen NEGATIVE: No Urine drug screen results: CHANDRAKANT-Cocaine, FEN-Fentanyl, MOP-Opiates, OXY-Oxycodone , BZO-Benzodiazepines, BUP-Suboxone
--- NOTE | 2019-08-09 23:54 | HP ---
CIWA Score Nausea/Vomitin-No Nausea/No Vomiting Muscle Tremors: 4-Moderate,w/Arms Extend Anxiety: 4-Mod. Anxious/Guarded Agitation: 4-Moderately Restless Paroxysmal Sweats: No Perspiration Orientation: 0-Oriented Tacttile Disturbances: 0-None Auditory Disturbances: 0-None Visual Disturbances: 0-None Headache: 0-None Present CIWA-Ar Total Score: 12 - Admission Criteria OASAS Guidelines: Admission for Medically Managed Detox: Requires at least one of the followin. CIWA greater than 12 2. Seizures within the past 24 hours 3. Delirium tremens within the past 24 hours 4. Hallucinations within the past 24 hours 5. Acute intervention needed for co occurring medical disorder 6. Acute intervention needed for co occurring psychiatric disorder 7. Severe withdrawal that cannot be handled at a lower level of care (continued vomiting, continued diarrhea, abnormal vital signs) requiring intravenous medication and/or fluids 8. Patient presents the following: CIWA greater than 12 Admission Criteria Met: Admission criteria met Admitting History and Physical - Smoking History Smoking history: Current every day smoker Have you smoked in the past 12 months: Yes Aproximately how many cigarettes per day: 10 - Alcohol/Substance Use Hx Alcohol Use: Yes Admission ROS [facility] Chief Complaint: Here for alcohol and heroin detox. Allergies/Adverse Reactions: Allergies Allergy/AdvReac Type Severity Reaction Status Date / Time fish derived Allergy Severe Hives Verified 08/09/19 18:00 lisinopril Allergy Severe Swelling Verified 08/09/19 18:00 shellfish derived Allergy Severe Hives Verified 08/09/19 18:00 Penicillins Allergy Mild Hives Verified 08/09/19 18:00 seafood Allergy Severe Hives Uncoded 08/09/19 18:00 History of Present Illness: 49 yo presents w/ alcohol withdrawal seeking detox for alcohol and opiates. Was detoxed in November and states stayed sober for 2 months. Denies seizures or blackouts. Last overdose 2017. Alcohol use began at age 13. Currently drinks 3-16 oz beers daily and 1/2 pint every other day. Last drink approx 3 pm. Heroin use began at age 28's. Currently using 10 bags - nasal since age 39 - nasal. States last used heroin about 10 a.m. Continues to use despite Suboxone treatment but less than prescribed. Suboxone use began at age 47. Last use Suboxone, this a.m. Patient has requested to receive Suboxone only twice a day. Cocaine use began at age 33. Currently smokes approx 2x/week. Nicotine use began at age 13. Smokes 1/2 PPD. PMHx: HTN. MHHx: Denies depression. Denies thoughts of harming self or others. SHx: Domiciled. Unemployed. Denies legal issues. Patient Name: Howie Mcadams Date: 1970 Address: [address] [place] [address] Sex: Male Rx Written Rx Dispensed Drug Quantity Days Supply Prescriber Name 07/30/2019 08/05/2019 buprenorphine-naloxone 8-2 mg sl film 45 15 Chetan Fleming MD 07/30/2019 08/01/2019 zolpidem tartrate 10 mg tablet 30 30 Chetan Fleming MD 07/02/2019 07/03/2019 buprenorphine-naloxone 8-2 mg sl film 90 30 Chetan Fleming MD 07/02/2019 07/03/2019 zolpidem tartrate 10 mg tablet 30 30 Chetan Fleming MD 12/26/2018 12/26/2018 zolpidem tartrate 10 mg tablet 30 30 Chetan Fleming MD 10/31/2018 11/16/2018 suboxone 8 mg-2 mg sl film 90 30 Chetan Fleming MD 09/17/2018 11/09/2018 zolpidem tartrate 10 mg tablet 30 30 Chetan Fleming MD 09/17/2018 10/09/2018 zolpidem tartrate 10 mg tablet 30 30 Chetan Fleming MD 09/17/2018 10/09/2018 suboxone 8 mg-2 mg sl film 60 30 Chetan Fleming MD 08/29/2018 09/08/2018 suboxone 8 mg-2 mg sl film 60 30 Chetan Fleming MD 07/25/2018 08/25/2018 zolpidem tartrate 10 mg tablet 30 30 Chetan Fleming MD Patient Name: Howie Mcadams Date: 1970 Address: [address] [address] Sex: Male Rx Written Rx Dispensed Drug Quantity Days Supply Prescriber Name 07/28/2019 07/29/2019 buprenorphine-naloxone 8-2 mg sl film 14 14 Judy Leong NP 01/29/2019 01/29/2019 buprenorphine-naloxone 8-2 mg sl film 14 14 Judy Leong NP Patient Name: Howie Cao Date: 1970 Address: [address] [place] [address] Sex: Male Rx Written Rx Dispensed Drug Quantity Days Supply Prescriber Name 06/04/2019 06/05/2019 buprenorphine-naloxone 8-2 mg sl film 90 30 Chetan Fleming MD 05/07/2019 06/04/2019 zolpidem tartrate 10 mg tablet 30 30 Chetan Fleming MD 05/07/2019 05/08/2019 buprenorphine-naloxone 8-2 mg sl film 90 30 Chetan Fleming MD 05/07/2019 05/07/2019 zolpidem tartrate 10 mg tablet 30 30 Chetan Fleming MD Patient Name: Howie Mcadams Date: 1970 Address: [address] [place] [address] Sex: Male Rx Written Rx Dispensed Drug Quantity Days Supply Prescriber Name 04/08/2019 04/08/2019 buprenorphine-naloxone 8-2 mg sl film 90 30 Chetan Fleming MD 03/08/2019 04/05/2019 zolpidem tartrate 10 mg tablet 30 30 Chetan Fleming MD 03/08/2019 03/08/2019 zolpidem tartrate 10 mg tablet 30 30 Chetan Fleming MD 03/08/2019 03/08/2019 buprenorphine-naloxone 8-2 mg sl film 90 30 Chetan Fleming MD Patient Name: Howie Mcadams Date: 1970 Address: [address] [place] [id number] Sex: Male Rx Written Rx Dispensed Drug Quantity Days Supply Prescriber Name 01/29/2019 02/04/2019 sublocade 300 mg/1.5 ml syring 1gm 28 Judy Leong NP Patient Name: Howie Mcadams Date: 1970 Address: [address] [place] [address] Sex: Male Rx Written Rx Dispensed Drug Quantity Days Supply Prescriber Name 10/24/2018 10/24/2018 buprenorphine-naloxone 8-2 mg sl tablet 14 7 Miranda Angel NP Search Terms: Howie Mcadams, 1970 Search Date: 08/10/2019 12:02:10 AM States Searched: [place], [place], [place], [place], [place], [place], [place] The Drug Utilization Report below displays the controlled substance prescriptions, if any, that were dispensed in the indicated state(s). The information displayed on this report is compiled from requests submitted to other states' PMPs, and accurately reflects the information as returned by them. Blank dickerson indicate data not provided by other state. This report was requested by: Michelle Jimenez | Reference #: [id number] There are no results for the search terms that you entered. Exam Limitations: No Limitations - Ebola screening Have you traveled outside of the country in the last 21 days: No (N) Have you had contact with anyone from an Ebola affected area: No Have you been sick,other than usual withdrawal symptoms: No Do you have a fever: No - Review of Systems Constitutional: Changes in sleep (Difficulty staying asleep - gets zolpidem prescribed,) EENT: reports: Blurred Vision, Dental Problems (poor teeth. Chews and swallows ok) Respiratory: reports: No Symptoms reported Cardiac: reports: No Symptoms Reported GI: reports: No Symptoms Reported : reports: No Symptoms Reported Musculoskeletal: reports: Back Pain (Chronic throbbing low back. "6". Increases w/ sleeping. Improves w/ meloxicam) Integumentary: reports: No Symptoms Reported Neuro: reports: No Symptoms reported Endocrine: reports: Increased Thirst Hematology: reports: No Symptoms Reported Psychiatric: reports: Orientated x3, Agitated, Anxious Patient History - Patient Medical History Hx Anemia: No Hx Asthma: No Hx Chronic Obstructive Pulmonary Disease (COPD): No Hx Cancer: No Hx Cardiac Disorders: No Hx Congestive Heart Failure: No Hx Hypertension: Yes (Pt DID NOT BRING MEDICATION WITH HIM) Hx Hypercholesterolemia: No Hx Pacemaker: No HX Cerebrovascular Accident: No Hx Seizures: No Hx Dementia: No Hx Diabetes: No Hx Gastrointestinal Disorders: No Hx Liver Disease: No Hx Genitourinary Disorders: No Hx Sexually Transmitted Disorders: No Hx Renal Disease (ESRD): No Hx Thyroid Disease: No Hx Human Immunodeficiency Virus (HIV): No (last 11/18 negative) Hx Hepatitis C: No (denies) Hx Depression: No Hx Suicide Attempt: No (denies) Hx Bipolar Disorder: No Hx Schizophrenia: No - Patient Surgical History Past Surgical History: No Hx Neurologic Surgery: No Hx Cataract Extraction: No Hx Cardiac Surgery: No Hx Lung Surgery: No Hx Breast Surgery: No Hx Breast Biopsy: No Hx Abdominal Surgery: No Hx Appendectomy: No Hx Cholecystectomy: No Hx Genitourinary Surgery: No Hx Section: No Hx Orthopedic Surgery: No - PPD History Previous Implant?: Yes Documented Results: Negative w/proof Implanted On Prior [facility] Admission?: Yes Date: 04/28/17 Results: 0 mm PPD to be Administered?: Yes - Smoking Cessation Smoking history: Current every day smoker Have you smoked in the past 12 months: Yes Aproximately how many cigarettes per day: 10 Cigars Per Day: 0 Hx Chewing Tobacco Use: No Initiated information on smoking cessation: Yes 'Breaking Loose' booklet given: 08/10/19 - Substance & Tx. History Hx Alcohol Use: Yes Hx Substance Use: Yes Substance Use Type: Alcohol, Cocaine, Heroin, Opiates Hx Substance Use Treatment: Yes (detox, rehab) - Substances abused Heroin Substance route: Inhalation Frequency: Daily Amount used: 10 bags Age of first use: 28 Date of last use: 08/09/19 Alcohol Substance route: Oral Frequency: Daily Amount used: half a pint of A&J, 3 16 ounces of Budweiser Age of first use: 13 Date of last use: 08/09/19 Admission Physical Exam [facility] - Vital Signs Vital Signs: Vital Signs - 24 hr 08/09/19 17:59 Temperature 98.3 F Pulse Rate 101 H Respiratory 16 Rate Blood Pressure 145/96 - Physical General Appearance: Yes: Nourished, Mild Distress, Tremorous, Irritable, Anxious HEENTM: Yes: EOMI (Jerking movement upon (R) lateral gaze), Hearing grossly Normal, Normocephalic, Normal Voice, LIBBY (Pupils = 2 mm), Pharynx Normal Respiratory: Yes: Lungs Clear, Normal Breath Sounds, No Respiratory Distress Neck: Yes: No masses,lesions,Nodules, Supple Breast: Yes: Breast Exam Deferred Cardiology: Yes: Regular Rhythm, Regular Rate, S1, S2 Abdominal: Yes: Non Tender, Soft, Increased Bowel Sounds, Protuberent ( Increased abdominal adiposity) Genitourinary: Yes: Within Normal Limits Back: Yes: Normal Inspection Musculoskeletal: Yes: full range of Motion, Gait Steady Extremities: Yes: Normal Capillary Refill, Normal Range of Motion, Tremors 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 (2) Obesity (BMI 30-39.9) Current Visit: Yes Status: Chronic (3) Alcohol dependence with uncomplicated withdrawal Current Visit: Yes Status: Acute (4) Cocaine dependence Current Visit: Yes Status: Chronic Qualifiers: Substance use status: uncomplicated Qualified Code(s): F14.20 - Cocaine dependence, uncomplicated (5) Essential hypertension Current Visit: Yes Status: Chronic (6) Nicotine dependence Current Visit: Yes Status: Chronic Qualifiers: Nicotine product type: cigarettes Substance use status: uncomplicated Qualified Code(s): F17.210 - Nicotine dependence, cigarettes, uncomplicated (7) Unspecified nystagmus Current Visit: Yes Status: Acute (8) Tinea pedis Current Visit: Yes Status: Chronic Qualifiers: Laterality: bilateral Qualified Code(s): B35.3 - Tinea pedis Cleared for Admission [facility] - Detox or Rehab [facility] Level of Care: Medically Managed Detox Regimen/Protocol: Librium Claeared for Rehab Admission: No Breathalyzer - Breathalyzer Breathalyzer: 0 Urine Drug Screen - Test Device Lot number: [id number] Expiration date: 03/31/21 - Control Is test valid?: Yes - Results Drug screen NEGATIVE: No Urine drug screen results: CHANDRAKANT-Cocaine, FEN-Fentanyl, MOP-Opiates, OXY-Oxycodone , BZO-Benzodiazepines, BUP-Suboxone Inpatient Rehab Admission - Rehab Decision to Admit Inpatient rehab admission?: No
[2019-08-10] MEDS ORDERED: IBUPROFEN 400 MG TABLET (FP) PO PRN (00:35)
[2019-08-10] MEDS ORDERED: NICOTINE POLACRILEX 2 MG GUM BUC PRN (00:35)
[2019-08-10] MEDS ORDERED: BISMUTH SUBSALICYLATE 524 MG/30 ML UD PO PRN (00:35)
[2019-08-10] MEDS ORDERED: MELATONIN 5 MG TABLETS PO PRN (00:35)
[2019-08-10] MEDS ORDERED: ACETAMINOPHEN 325 MG TABLET (FP) PO PRN ×2 (00:35)
[2019-08-10] MEDS ORDERED: chlordiazePOXIDE HCL 10 MG CAPSULE PO PRN (00:35)
[2019-08-10] MEDS ORDERED: MAGNESIUM CITRATE 300 ML BOTTLE PO PRN (00:35)
[2019-08-10] MEDS ORDERED: MAGNESIUM HYDROX 2400MG/30ML ORAL SUSPENSION 30 ML CUP PO PRN (00:35)
[2019-08-10] MEDS ORDERED: MENTHOL/PHENOL 1 EACH UD MM PRN (00:35)
[2019-08-10] MEDS ORDERED: MAG HYDROX/AL HYDROX/SIMETH 30 ML UNIT-DOSE CUP PO PRN (00:35)
[2019-08-10] MEDS: chlordiazePOXIDE HCL 25 MG CAPSULE PO SCH ×3 (06:08→22:15)
[2019-08-10] MEDS ORDERED: BUPRENORPHINE/NALOXONE 8 MG/2 MG FILM PACKET SL SCH (10:00)
[2019-08-10] MEDS: amLODIPine BESYLATE 10 MG TABLET (FP) PO SCH (10:39)
[2019-08-10] MEDS: PRENATAL VITAMINS W/ FOLIC ACID TABLET (FP) PO SCH (10:39)
[2019-08-10] MEDS: TOLNAFTATE 1% CREAM 15 GM TUBE TP SCH ×2 (10:39→22:57)
[2019-08-10] MEDS: METHOCARBAMOL 500 MG TABLET PO PRN (10:41)
[2019-08-10] MEDS: NICOTINE 14 MG/24 HOURS TOPICAL PATCH TD SCH (10:44)
[2019-08-10 10:55] LABS: ALBUMIN 3.5 g/dl (3.4-5.0); BILIRUBIN,TOTAL 0.4 mg/dL (0.2-1); BLOOD UREA NITROGEN 14.8 mg/dL (7-18); CALCIUM 8.6 mg/dL (8.5-10.1); CREATININE 1.1 mg/dL (0.55-1.3); POTASSIUM 3.7 mmol/L (3.5-5.1); TOT PROT 6.2 g/dl (6.4-8.2)
[2019-08-10 11:09] LABS: HEMATOCRIT 37.7 % (35.4-49); HEMOGLOBIN 12.8 GM/dL (11.7-16.9); MCH 30.2 pg (25.7-33.7); MCHC 34.1 g/dl (32.0-35.9); MEAN CELL VOLUME 88.5 fl (80-96); MEAN PLT VOLUME 8.2 fl (7.5-11.1); PLATELET COUNT 188 K/MM3 (134-434); RBC 4.26 M/mm3 (4.00-5.60); RDW 15.1 % (11.9-15.9); WHITE BLOOD COUNT 3.5 K/mm3 (4.0-10.0)
--- NOTE | 2019-08-10 11:35 | PN ---
S CIWA - CIWA Score Nausea/Vomitin-No Nausea/No Vomiting Muscle Tremors: 3 Anxiety: 3 Agitation: 2 Paroxysmal Sweats: 2 Orientation: 0-Oriented Tacttile Disturbances: 0-None Auditory Disturbances: 0-None Visual Disturbances: 0-None Headache: 0-None Present CIWA-Ar Total Score: 10 S Progress Note (SOAP) Subjective: sweats shakes anxiety I want my suboxone at 10am and 6pm. Objective: 08/10/19 11:35 Vital Signs Temperature 97.7 F 08/10/19 09:30 Pulse Rate 59 L 08/10/19 09:30 Respiratory Rate 18 08/10/19 09:30 Blood Pressure 131/78 08/10/19 09:30 O2 Sat by Pulse Oximetry (%) Laboratory Tests 08/10/19 08/10/19 07:50 07:50 WBC 3.5 L RBC 4.26 Hgb 12.8 Hct 37.7 MCV 88.5 MCH 30.2 MCHC 34.1 RDW 15.1 Plt Count 188 MPV 8.2 Sodium 142 Potassium 3.7 Chloride 108 H Carbon Dioxide 30 Anion Gap 5 L BUN 14.8 Creatinine 1.1 Est GFR (CKD-EPI)AfAm 89.61 Est GFR (CKD-EPI)NonAf 77.32 Random Glucose 97 Calcium 8.6 Total Bilirubin 0.4 AST 41 H ALT 42 Alkaline Phosphatase 70 Total Protein 6.2 L Albumin 3.5 labs noted aaox3 ambulating no acute distress Assessment: 08/10/19 11:36 withdrawal sx Plan: continue detox increase fluids suboxone timing changed as per pt request.
[2019-08-10] MEDS: BUPRENORPHINE/NALOXONE 8 MG/2 MG FILM PACKET SL SCH (18:17)
[2019-08-10] MEDS ORDERED: THIAMINE HCL 100 MG TABLET (FP) PO SCH (22:00)
[2019-08-11] MEDS: chlordiazePOXIDE 5 MG CAPSULE PO SCH ×2 (05:22→14:03)
[2019-08-11] MEDS: TOLNAFTATE 1% CREAM 15 GM TUBE TP SCH (10:20)
[2019-08-11] MEDS: amLODIPine BESYLATE 10 MG TABLET (FP) PO SCH (10:33)
[2019-08-11] MEDS: BUPRENORPHINE/NALOXONE 8 MG/2 MG FILM PACKET SL SCH (10:33)
[2019-08-11] MEDS: PRENATAL VITAMINS W/ FOLIC ACID TABLET (FP) PO SCH (10:33)
[2019-08-11] MEDS: METHOCARBAMOL 500 MG TABLET PO PRN (10:34)
--- NOTE | 2019-08-11 13:14 | PN ---
S CIWA - CIWA Score Nausea/Vomitin-No Nausea/No Vomiting Muscle Tremors: 2 Anxiety: 2 Agitation: 2 Paroxysmal Sweats: 2 Orientation: 0-Oriented Tacttile Disturbances: 0-None Auditory Disturbances: 0-None Visual Disturbances: 0-None Headache: 0-None Present CIWA-Ar Total Score: 8 BHS Progress Note (SOAP) Subjective: Feels ok, medication working Objective: 08/11/19 13:10 Last Vital Signs Temp Pulse Resp BP Pulse Ox 98.4 F 82 18 141/90 08/11/19 09:32 08/11/19 09:32 08/11/19 09:32 08/11/19 09:32 Elevated b/p: has htn, on med Laboratory Tests 08/10/19 08/10/19 08/10/19 07:50 07:50 07:50 WBC 3.5 L RBC 4.26 Hgb 12.8 Hct 37.7 MCV 88.5 MCH 30.2 MCHC 34.1 RDW 15.1 Plt Count 188 MPV 8.2 Sodium 142 Potassium 3.7 Chloride 108 H Carbon Dioxide 30 Anion Gap 5 L BUN 14.8 Creatinine 1.1 Est GFR (CKD-EPI)AfAm 89.61 Est GFR (CKD-EPI)NonAf 77.32 Random Glucose 97 Calcium 8.6 Total Bilirubin 0.4 AST 41 H ALT 42 Alkaline Phosphatase 70 Total Protein 6.2 L Albumin 3.5 RPR Titer Nonreactive Labs reviewed Assessment: 08/11/19 13:11 Withdrawal sxs Plan: Continue detox Encouraged PO water intake HTN: continue antihypertensive, monitor b/p
[2019-08-11] MEDS: NICOTINE 14 MG/24 HOURS TOPICAL PATCH TD SCH (13:25)
[2019-08-11 14:07] VITALS: BP 142/81; PULSE 77; TEMP 98.1
--- NOTE | 2019-08-11 14:56 | DS ---
[facility] Detox Discharge Summary Admission Date: 08/09/19 Discharge Date: 08/11/19 - History Present History: Alcohol Dependence, Cocaine Dependence, Opioid Dependence Additional Comments: Patient demanded to leave AMA despite encouragement from staff to complete detox. Patient instructed to call [phone] if sick or withdrawal sxs and to see PCP within 3 days. Patient is stable. Pertinent Past History: HTN - Physical Exam Results Vital Signs: Vital Signs Temperature 98.1 F 08/11/19 14:06 Pulse Rate 77 08/11/19 14:06 Respiratory Rate 20 08/11/19 14:06 Blood Pressure 142/81 08/11/19 14:06 O2 Sat by Pulse Oximetry (%) Pertinent Admission Physical Exam Findings: Withdrawal sxs Laboratory Tests 08/10/19 08/10/19 08/10/19 07:50 07:50 07:50 WBC 3.5 L RBC 4.26 Hgb 12.8 Hct 37.7 MCV 88.5 MCH 30.2 MCHC 34.1 RDW 15.1 Plt Count 188 MPV 8.2 Sodium 142 Potassium 3.7 Chloride 108 H Carbon Dioxide 30 Anion Gap 5 L BUN 14.8 Creatinine 1.1 Est GFR (CKD-EPI)AfAm 89.61 Est GFR (CKD-EPI)NonAf 77.32 Random Glucose 97 Calcium 8.6 Total Bilirubin 0.4 AST 41 H ALT 42 Alkaline Phosphatase 70 Total Protein 6.2 L Albumin 3.5 RPR Titer Nonreactive Labs reviewed - Medication Discharge Medications: Ambulatory Orders Amlodipine Besylate [Norvasc -] 10 mg PO DAILY 08/09/19 Suboxone 8Mg/2Mg Sl Film - 1 film SL TID 08/09/19 - Diagnosis (1) Alcohol dependence with uncomplicated withdrawal Current Visit: Yes Status: Acute (2) Cocaine dependence Current Visit: Yes Status: Chronic Qualifiers: Substance use status: uncomplicated Qualified Code(s): F14.20 - Cocaine dependence, uncomplicated (3) Essential hypertension Current Visit: Yes Status: Chronic (4) Nicotine dependence Current Visit: Yes Status: Chronic Qualifiers: Nicotine product type: cigarettes Substance use status: uncomplicated Qualified Code(s): F17.210 - Nicotine dependence, cigarettes, uncomplicated (5) Opioid dependence on agonist therapy Current Visit: Yes Status: Chronic - AMA Did Patient Leave Against Medical Advice: Yes (Instructed to call [phone] if sick or withdrawal sxs)
[2019-08-12] MEDS ORDERED: chlordiazePOXIDE HCL 10 MG CAPSULE PO PRN
[2019-08-12] MEDS ORDERED: chlordiazePOXIDE HCL 10 MG CAPSULE PO SCH (05:00)
[2019-08-13] MEDS ORDERED: chlordiazePOXIDE HCL 10 MG CAPSULE PO ONE (05:00)
== END 2019-08-11 15:07 | disposition left against medical advice (07) | DRG 770 ==
LOC: YASAS 15:05 → Y6N 23:39
PROVIDERS: ADMIT Allergy & Immunology; ATTEND Allergy & Immunology
PROC: HZ2ZZZZ Detoxification Services for Substance Abuse Treatment (ICD-10-PCS; principal; 2019-08-09)
DX: F10.230 Alcohol dependence with withdrawal, uncomplicated (principal); F11.20 Opioid dependence, uncomplicated; F14.20 Cocaine dependence, uncomplicated; F17.210 Nicotine dependence, cigarettes, uncomplicated; I10 Essential (primary) hypertension; H55.00 Unspecified nystagmus; B35.3 Tinea pedis; E66.9 Obesity, unspecified; Z68.36 Body mass index [BMI] 36.0-36.9, adult; Z88.0 Allergy status to penicillin; Z88.8 Allergy status to other drugs, medicaments and biological substances; Z91.013 Allergy to seafood
CPT/HCPCS: 36415; 80053; 85027; 86593

== ENCOUNTER 2019-11-09 09:54 | Inpatient (IN) | payer OTHER ==
[2019-11-09 10:27] VITALS: BMI 39.4
--- NOTE | 2019-11-09 10:57 | HP ---
CIWA Score Nausea/Vomitin-Mild Nausea/No Vomiting Muscle Tremors: 3 Anxiety: 1-Mildly Anxious Agitation: 1-Slight > Activity Paroxysmal Sweats: 1-Minimal Palms Moist Orientation: 2-Disoriented Date<2 days Tacttile Disturbances: 1-Very Mild Itch/Numbness Auditory Disturbances: 1-Very Mild Visual Disturbances: 1-Very Mild Sensitivity Headache: 2-Mild CIWA-Ar Total Score: 14 - Admission Criteria OASAS Guidelines: Admission for Medically Managed Detox: Requires at least one of the followin. CIWA greater than 12 2. Seizures within the past 24 hours 3. Delirium tremens within the past 24 hours 4. Hallucinations within the past 24 hours 5. Acute intervention needed for co occurring medical disorder 6. Acute intervention needed for co occurring psychiatric disorder 7. Severe withdrawal that cannot be handled at a lower level of care (continued vomiting, continued diarrhea, abnormal vital signs) requiring intravenous medication and/or fluids 8. Patient presents the following: CIWA greater than 12 Admission Criteria Met: Admission criteria met Admitting History and Physical - Admission History Source: Patient Limitations to Obtaining History: No Limitations - Past Medical History Cardiovascular: Yes: HTN Psych: Yes: Addictions - Smoking History Smoking history: Current every day smoker Have you smoked in the past 12 months: Yes Aproximately how many cigarettes per day: 10 - Alcohol/Substance Use Hx Alcohol Use: Yes History of Substance Use: reports: Cocaine - Social History Usual Living Arrangement: Yes: With Significant Other ADL: Support Services Admission ROS S - HPI Chief Complaint: The drinking is too much, I gotta stop, it's getting out of hand, I'm tired of it Allergies/Adverse Reactions: Allergies Allergy/AdvReac Type Severity Reaction Status Date / Time fish derived Allergy Severe Hives Verified 11/09/19 10:14 lisinopril Allergy Severe Swelling Verified 11/09/19 10:14 shellfish derived Allergy Severe Hives Verified 11/09/19 10:14 Penicillins Allergy Mild Hives Verified 11/09/19 10:14 seafood Allergy Severe Hives Uncoded 11/09/19 10:14 History of Present Illness: 49 yo gentleman here for detox from alcohol - also using cocaine, on suboxone program (see below [facility]). Patient is in an outpatient drug rehab program [facility] where he gets his suboxone. Denies seizure or black outs. This is one of multiple admissions for treatment - last here 08/09/19 - he left AMA but states he will complete his stay this time (family emergency). Patient lives in an apartment, is not on disability. No emergency room visits this week. Patient states he did not take his suboxone today - usually takes it three times a day but was involved with coming here for treatment. [place]: Others' Prescriptions Patient Name: Howie Mcadams Date: 1970 Address: [address] [place] [id number] Sex: Male Rx Written Rx Dispensed Drug Quantity Days Supply Prescriber Name 10/30/2019 11/04/2019 buprenorphine-naloxone 8-2 mg sl film 18 6 Shira Marie 10/25/2019 10/28/2019 buprenorphine-naloxone 12-3 mg sl film 10 5 Shira Marie 10/25/2019 10/28/2019 zolpidem tartrate 10 mg tablet 30 30 Chetan Fleming MD 07/30/2019 08/05/2019 buprenorphine-naloxone 8-2 mg sl film 45 15 Chetan Fleming MD 07/30/2019 08/01/2019 zolpidem tartrate 10 mg tablet 30 30 Chetan Fleming MD 07/02/2019 07/03/2019 buprenorphine-naloxone 8-2 mg sl film 90 30 Chetan Fleming MD 07/02/2019 07/03/2019 zolpidem tartrate 10 mg tablet 30 30 Chetan Fleming MD 12/26/2018 12/26/2018 zolpidem tartrate 10 mg tablet 30 30 Chetan Fleming MD 10/31/2018 11/16/2018 suboxone 8 mg-2 mg sl film 90 30 Chetan Fleming MD Patient Name: Howie Mcadams Date: 1970 Address: [address] [place] [id number] Sex: Male Rx Written Rx Dispensed Drug Quantity Days Supply Prescriber Name 09/17/2019 09/19/2019 buprenorphine-naloxone 8-2 mg sl film 90 30 Jerome Hansen 08/28/2019 08/28/2019 buprenorphine-naloxone 8-2 mg sl film 60 30 Jerome Hansen Patient Name: Howie Mcadams Date: 1970 Address: [place] [address] Sex: Male Rx Written Rx Dispensed Drug Quantity Days Supply Prescriber Name 07/28/2019 07/29/2019 buprenorphine-naloxone 8-2 mg sl film 14 14 Judy Leong NP 01/29/2019 01/29/2019 buprenorphine-naloxone 8-2 mg sl film 14 14 Judy Leong NP Patient Name: Howie Cao Date: 1970 Address: [address] [place] [address] Sex: Male Rx Written Rx Dispensed Drug Quantity Days Supply Prescriber Name 06/04/2019 06/05/2019 buprenorphine-naloxone 8-2 mg sl film 90 30 Chetan Fleming MD 05/07/2019 06/04/2019 zolpidem tartrate 10 mg tablet 30 30 Chetan Fleming MD 05/07/2019 05/08/2019 buprenorphine-naloxone 8-2 mg sl film 90 30 Chetan Fleming MD 05/07/2019 05/07/2019 zolpidem tartrate 10 mg tablet 30 30 Chetan Fleming MD Patient Name: Howie Mcadams Date: 1970 Address: [address] [place] [address] Sex: Male Rx Written Rx Dispensed Drug Quantity Days Supply Prescriber Name 04/08/2019 04/08/2019 buprenorphine-naloxone 8-2 mg sl film 90 30 Chetan Fleming MD 03/08/2019 04/05/2019 zolpidem tartrate 10 mg tablet 30 30 Chetan Fleming MD 03/08/2019 03/08/2019 zolpidem tartrate 10 mg tablet 30 30 Chetan Fleming MD 03/08/2019 03/08/2019 buprenorphine-naloxone 8-2 mg sl film 90 30 Chetan Fleming MD Patient Name: Howie Mcadams Date: 1970 Address: [address] [place] [address] Sex: Male Rx Written Rx Dispensed Drug Quantity Days Supply Prescriber Name 01/29/2019 02/04/2019 sublocade 300 mg/1.5 ml syring 1gm 28 Judy Leong NP * - Drugs marked with an asterisk are compound drugs. If the compound drug is made up of more than one controlled substance, then each controlled substance will be a separate row in the table. Exam Limitations: No Limitations - Ebola screening Have you traveled outside of the country in the last 21 days: No Have you had contact with anyone from an Ebola affected area: No Have you been sick,other than usual withdrawal symptoms: No Do you have a fever: No - Review of Systems Constitutional: Chills, Loss of Appetite, Malaise, Changes in sleep EENT: reports: Blurred Vision Respiratory: reports: No Symptoms reported Cardiac: reports: No Symptoms Reported GI: reports: Abdominal cramping : reports: Frequency Musculoskeletal: reports: Back Pain Integumentary: reports: Dryness Neuro: reports: Headache, Numbness Endocrine: reports: No Symptoms Reported Hematology: reports: No Symptoms Reported Psychiatric: reports: Judgement Intact, Mood/Affect Appropiate, Anxious Other Systems: Reviewed and Negative Patient History - Patient Medical History Hx Anemia: No Hx Asthma: No Hx Chronic Obstructive Pulmonary Disease (COPD): No Hx Cancer: No Hx Cardiac Disorders: No Hx Congestive Heart Failure: No Hx Hypertension: Yes Hx Hypercholesterolemia: No Hx Pacemaker: No HX Cerebrovascular Accident: No Hx Seizures: No Hx Dementia: No Hx Diabetes: No Hx Gastrointestinal Disorders: No Hx Liver Disease: No Hx Genitourinary Disorders: No Hx Sexually Transmitted Disorders: No Hx Renal Disease (ESRD): No Hx Thyroid Disease: No Hx Human Immunodeficiency Virus (HIV): No (last 11/18 negative) Hx Hepatitis C: No (denies) Hx Depression: No (insomnia) Hx Suicide Attempt: No (denies) Hx Bipolar Disorder: No Hx Schizophrenia: No - Patient Surgical History Past Surgical History: No Hx Neurologic Surgery: No Hx Cataract Extraction: No Hx Cardiac Surgery: No Hx Lung Surgery: No Hx Breast Surgery: No Hx Breast Biopsy: No Hx Abdominal Surgery: No Hx Appendectomy: No Hx Cholecystectomy: No Hx Genitourinary Surgery: No Hx Section: No Hx Orthopedic Surgery: No Anesthesia Reaction: No - PPD History Previous Implant?: Yes Documented Results: Negative w/proof Implanted On Prior R Admission?: Yes Date: 08/12/19 Results: 0 mm PPD to be Administered?: No - Reproductive History Patient is a Female of Child Bearing Age (11 -55 yrs old): No (male) - Smoking Cessation Smoking history: Current every day smoker Have you smoked in the past 12 months: Yes Aproximately how many cigarettes per day: 10 Cigars Per Day: 0 Hx Chewing Tobacco Use: No Initiated information on smoking cessation: Yes 'Breaking Loose' booklet given: 11/09/19 (give on floor) - Substance & Tx. History Hx Alcohol Use: Yes Hx Substance Use: Yes Substance Use Type: Alcohol, Cocaine Hx Substance Use Treatment: Yes (detox, rehab, suboxone) - Substances abused Alcohol Substance route: Oral Frequency: Daily Amount used: 1/2 pint of [place], six pack 16 oz beer Age of first use: 13 Date of last use: 11/08/19 Cocaine Substance route: Smoking Frequency: 3-6 times per week Amount used: $100/day Age of first use: 13 Date of last use: 11/08/19 Admission Physical Exam S - Vital Signs Vital Signs: Vital Signs - 24 hr 11/09/19 10:23 Temperature 97.5 F L Pulse Rate 64 Respiratory 18 Rate Blood Pressure 131/82 - Physical General Appearance: Yes: Nourished, Appropriately Dressed, Moderate Distress, Tremorous, Irritable, Anxious HEENTM: Yes: EOMI, Hearing grossly Normal, Normocephalic, Normal Voice, Pharynx Normal Respiratory: Yes: Normal Breath Sounds, No Respiratory Distress Neck: Yes: No masses,lesions,Nodules Breast: Yes: Breast Exam Deferred Cardiology: Yes: Regular Rhythm, Regular Rate Abdominal: Yes: Soft Genitourinary: Yes: Frequency Back: Yes: Normal Inspection Musculoskeletal: Yes: Back pain, Muscle Pain Extremities: Yes: Normal Inspection, Tremors Neurological: Yes: Alert, Normal Mood/Affect, Normal Response Integumentary: Yes: Normal Color, Dry, Warm Lymphatic: Yes: Within Normal Limits - Diagnostic (1) Alcohol dependence with uncomplicated withdrawal Current Visit: Yes Status: Chronic (2) Cocaine dependence Current Visit: Yes Status: Chronic Qualifiers: Substance use status: uncomplicated Qualified Code(s): F14.20 - Cocaine dependence, uncomplicated (3) Encounter for monitoring Suboxone maintenance therapy Current Visit: Yes Status: Chronic (4) Essential hypertension Current Visit: Yes Status: Chronic (5) Nicotine dependence Current Visit: Yes Status: Chronic Qualifiers: Nicotine product type: cigarettes Substance use status: uncomplicated Qualified Code(s): F17.210 - Nicotine dependence, cigarettes, uncomplicated (6) Obesity (BMI 30-39.9) Current Visit: Yes Status: Chronic Cleared for Admission S - Detox or Rehab [facility] Level of Care: Medically Managed Detox Regimen/Protocol: Librium Breathalyzer - Breathalyzer Breathalyzer: 0 Urine Drug Screen - Test Device Lot number: [id number] Expiration date: 08/26/21 - Control Is test valid?: Yes - Results Drug screen NEGATIVE: No Urine drug screen results: CHANDRAKANT-Cocaine, BUP-Suboxone Inpatient Rehab Admission - Rehab Decision to Admit Inpatient rehab admission?: No
[2019-11-09] MEDS ORDERED: BISMUTH SUBSALICYLATE 524 MG/30 ML UD PO PRN (11:51)
[2019-11-09] MEDS ORDERED: LORazepam 1 MG TABLET PO PRN (11:51)
[2019-11-09] MEDS ORDERED: ACETAMINOPHEN 325 MG TABLET (FP) PO PRN ×2 (11:51)
[2019-11-09] MEDS ORDERED: MELATONIN 5 MG TABLETS PO PRN (11:51)
[2019-11-09] MEDS ORDERED: MAG HYDROX/AL HYDROX/SIMETH 30 ML UNIT-DOSE CUP PO PRN (11:51)
[2019-11-09] MEDS ORDERED: IBUPROFEN 400 MG TABLET (FP) PO PRN (11:51)
[2019-11-09] MEDS ORDERED: hydrOXYzine PAMOATE 25 MG CAPSULE (FP) PO PRN (11:51)
[2019-11-09] MEDS ORDERED: MENTHOL/PHENOL 1 EACH UD MM PRN (11:51)
[2019-11-09] MEDS ORDERED: MAGNESIUM HYDROX 2400MG/30ML ORAL SUSPENSION 30 ML CUP PO PRN (11:51)
[2019-11-09] MEDS ORDERED: NICOTINE POLACRILEX 4 MG GUM BUC PRN (11:51)
[2019-11-09] MEDS ORDERED: METHOCARBAMOL 500 MG TABLET PO PRN (11:51)
[2019-11-09] MEDS ORDERED: MAGNESIUM CITRATE 300 ML BOTTLE PO PRN (11:51)
[2019-11-09] MEDS: amLODIPine BESYLATE 10 MG TABLET (FP) PO SCH (12:52)
[2019-11-09] MEDS: LORazepam 2 MG TABLET PO ONE (12:52)
[2019-11-09] MEDS: BUPRENORPHINE/NALOXONE 8 MG/2 MG FILM PACKET SL SCH ×2 (15:45→22:17)
[2019-11-09] MEDS: LORazepam 2 MG TABLET PO SCH ×2 (17:57→22:17)
[2019-11-09] MEDS ORDERED: traZODone HCL 50 MG TABLET (FP) PO PRN (22:00)
[2019-11-09] MEDS: THIAMINE HCL 100 MG TABLET (FP) PO SCH (22:17)
[2019-11-10] MEDS: LORazepam 2 MG TABLET PO ONE (05:12)
[2019-11-10] MEDS: BUPRENORPHINE/NALOXONE 8 MG/2 MG FILM PACKET SL SCH ×3 (05:12→22:15)
[2019-11-10] MEDS: LORazepam 2 MG TABLET PO SCH ×4 (06:13→22:15)
[2019-11-10 10:13] LABS: HEMATOCRIT 37.8 % (35.4-49); HEMOGLOBIN 12.9 GM/dL (11.7-16.9); MCH 30.1 pg (25.7-33.7); MCHC 34.2 g/dl (32.0-35.9); PLATELET COUNT 214 K/MM3 (134-434); RBC 4.29 M/mm3 (4.00-5.60); RDW 15.5 % (11.9-15.9); WHITE BLOOD COUNT 3.6 K/mm3 (4.0-10.0)
[2019-11-10] MEDS: amLODIPine BESYLATE 10 MG TABLET (FP) PO SCH (10:14)
[2019-11-10] MEDS: PRENATAL VITAMINS W/ FOLIC ACID TABLET (FP) PO SCH (10:14)
[2019-11-10 10:44] LABS: ALBUMIN 3.7 g/dl (3.4-5.0); BILIRUBIN,TOTAL 0.4 mg/dL (0.2-1); BLOOD UREA NITROGEN 17.6 mg/dL (7-18); CALCIUM 8.5 mg/dL (8.5-10.1); CREATININE 1.2 mg/dL (0.55-1.3); POTASSIUM 4.1 mmol/L (3.5-5.1); TOT PROT 7.1 g/dl (6.4-8.2)
--- NOTE | 2019-11-10 11:59 | PN ---
[facility] CIWA - CIWA Score Nausea/Vomitin-Mild Nausea/No Vomiting Muscle Tremors: 2 Anxiety: 2 Agitation: 2 Paroxysmal Sweats: 2 Orientation: 0-Oriented Tacttile Disturbances: 0-None Auditory Disturbances: 0-None Visual Disturbances: 0-None Headache: 0-None Present CIWA-Ar Total Score: 9 S Progress Note (SOAP) Subjective: Tremor, chills, sweating, feeling tired, interrupted sleep Objective: 11/10/19 11:55 Last Vital Signs Temp Pulse Resp BP Pulse Ox 97.8 F 55 L 18 135/79 11/10/19 08:56 11/10/19 08:56 11/10/19 08:56 11/10/19 08:56 Elevated b/p: has htn, on medication Laboratory Tests 11/10/19 11/10/19 11/10/19 07:20 07:20 07:20 WBC 3.6 L RBC 4.29 Hgb 12.9 Hct 37.8 MCV 88.0 MCH 30.1 MCHC 34.2 RDW 15.5 Plt Count 214 MPV 8.0 Sodium 142 Potassium 4.1 Chloride 110 H Carbon Dioxide 28 Anion Gap 5 L BUN 17.6 Creatinine 1.2 Est GFR (CKD-EPI)AfAm 80.66 Est GFR (CKD-EPI)NonAf 69.59 Random Glucose 119 H Calcium 8.5 Total Bilirubin 0.4 AST 40 H ALT 41 Alkaline Phosphatase 83 Total Protein 7.1 Albumin 3.7 RPR Titer Nonreactive Labs reviewed: elevated serum glucose level, denies DM Assessment: 11/10/19 11:57 Withdrawal sxs Noted with elevated serum glucose level Plan: Continue detox Encouraged PO water intake HTN: continue norvasc, monitor b/p Elevated serum glucose level: denies DM; could be r/t withdrawal, repeat fasting glucose, send HbA1c
[2019-11-10] MEDS: THIAMINE HCL 100 MG TABLET (FP) PO SCH (22:15)
[2019-11-11] MEDS: BUPRENORPHINE/NALOXONE 8 MG/2 MG FILM PACKET SL SCH ×3 (06:11→22:09)
[2019-11-11] MEDS: LORazepam 1 MG TABLET PO SCH ×4 (06:11→22:09)
--- NOTE | 2019-11-11 10:18 | PN ---
[facility] CIWA - CIWA Score Nausea/Vomitin-Mild Nausea/No Vomiting Muscle Tremors: 1-None Visible, but [place] Anxiety: 2 Agitation: 2 Paroxysmal Sweats: No Perspiration Orientation: 0-Oriented Tacttile Disturbances: 1-Very Mild Itch/Numbness Auditory Disturbances: 0-None Visual Disturbances: 0-None Headache: 1-Very Mild CIWA-Ar Total Score: 8 B[facility] Progress Note (SOAP) Subjective: alert,irritable,anxious,interrupted sleep,pain in the body Objective: 11/11/19 10:16 Vital Signs Temperature 97.9 F 11/11/19 08:50 Pulse Rate 55 L 11/11/19 08:50 Respiratory Rate 16 11/11/19 08:50 Blood Pressure 121/86 11/11/19 08:50 O2 Sat by Pulse Oximetry (%) Laboratory Last Values WBC 3.6 K/mm3 (4.0-10.0) L 11/10/19 07:20 RBC 4.29 M/mm3 (4.00-5.60) 11/10/19 07:20 Hgb 12.9 GM/dL (11.7-16.9) 11/10/19 07:20 Hct 37.8 % (35.4-49) 11/10/19 07:20 MCV 88.0 fl (80-96) 11/10/19 07:20 MCH 30.1 pg (25.7-33.7) 11/10/19 07:20 MCHC 34.2 g/dl (32.0-35.9) 11/10/19 07:20 RDW 15.5 % (11.9-15.9) 11/10/19 07:20 Plt Count 214 K/MM3 (134-434) 11/10/19 07:20 MPV 8.0 fl (7.5-11.1) 11/10/19 07:20 Sodium 142 mmol/L (136-145) 11/10/19 07:20 Potassium 4.1 mmol/L (3.5-5.1) 11/10/19 07:20 Chloride 110 mmol/L (98-107) H 11/10/19 07:20 Carbon Dioxide 28 mmol/L (21-32) 11/10/19 07:20 Anion Gap 5 MMOL/L (8-16) L 11/10/19 07:20 BUN 17.6 mg/dL (7-18) 11/10/19 07:20 Creatinine 1.2 mg/dL (0.55-1.3) 11/10/19 07:20 Est GFR (CKD-EPI)AfAm 80.66 11/10/19 07:20 Est GFR (CKD-EPI)NonAf 69.59 11/10/19 07:20 Random Glucose 119 mg/dL (74-106) H 11/10/19 07:20 Calcium 8.5 mg/dL (8.5-10.1) 11/10/19 07:20 Total Bilirubin 0.4 mg/dL (0.2-1) 11/10/19 07:20 AST 40 U/L (15-37) H 11/10/19 07:20 ALT 41 U/L (13-61) 11/10/19 07:20 Alkaline Phosphatase 83 U/L (45-117) 11/10/19 07:20 Total Protein 7.1 g/dl (6.4-8.2) 11/10/19 07:20 Albumin 3.7 g/dl (3.4-5.0) 11/10/19 07:20 RPR Titer Nonreactive (NONREACTIVE) 11/10/19 07:20 fasting glucose pending Assessment: 11/11/19 10:17 withdrawal symptom,continue suboxone 8mgs/2 mgs sl tid
[2019-11-11] MEDS: PRENATAL VITAMINS W/ FOLIC ACID TABLET (FP) PO SCH (10:35)
[2019-11-11] MEDS: amLODIPine BESYLATE 10 MG TABLET (FP) PO SCH (10:35)
[2019-11-11] MEDS: THIAMINE HCL 100 MG TABLET (FP) PO SCH (22:10)
[2019-11-12] MEDS ORDERED: LORazepam 0.5 MG TABLET PO PRN
[2019-11-12] MEDS: BUPRENORPHINE/NALOXONE 8 MG/2 MG FILM PACKET SL SCH (05:16)
[2019-11-12] MEDS: LORazepam 0.5 MG TABLET PO SCH ×2 (05:16→10:08)
[2019-11-12 09:22] VITALS: BP 135/83; PULSE 61; TEMP 98.8
[2019-11-12] MEDS: PRENATAL VITAMINS W/ FOLIC ACID TABLET (FP) PO SCH (10:07)
[2019-11-12] MEDS: amLODIPine BESYLATE 10 MG TABLET (FP) PO SCH (10:07)
--- NOTE | 2019-11-12 10:07 | PN ---
[facility] CIWA - CIWA Score Nausea/Vomitin-Mild Nausea/No Vomiting Muscle Tremors: 1-None Visible, but [place] Anxiety: 1-Mildly Anxious Agitation: 1-Slight > Activity Paroxysmal Sweats: No Perspiration Orientation: 0-Oriented Tacttile Disturbances: 1-Very Mild Itch/Numbness Auditory Disturbances: 0-None Visual Disturbances: 0-None Headache: 1-Very Mild CIWA-Ar Total Score: 6 BHS Progress Note (SOAP) Subjective: alert,anxious, Objective: 11/12/19 10:04 Vital Signs Temperature 98.8 F 11/12/19 08:30 Pulse Rate 61 11/12/19 08:30 Respiratory Rate 19 11/12/19 08:30 Blood Pressure 135/83 11/12/19 08:30 O2 Sat by Pulse Oximetry (%) Assessment: 11/12/19 10:05 no withdrawal symptom Plan: stable for discharge today,follow up with after care program as arrangement
--- NOTE | 2019-11-12 10:18 | DS ---
[facility] Detox Discharge Summary Admission Date: 11/09/19 Discharge Date: 11/12/19 - History Present History: Alcohol Dependence, Cocaine Dependence Additional Comments: alert,ambulation on the unit lung clear no abdominal pain stable for discharge time spent for discharge 30 mins patient disrespectful to staff,using abusive language,disruptive the unit, nursing paper products supervisor present,escorted off the unit with security Pertinent Past History: essential hypertension suboxone maintenance - Physical Exam Results Vital Signs: Vital Signs Temperature 98.8 F 11/12/19 08:30 Pulse Rate 61 11/12/19 08:30 Respiratory Rate 19 11/12/19 08:30 Blood Pressure 135/83 11/12/19 08:30 O2 Sat by Pulse Oximetry (%) Pertinent Admission Physical Exam Findings: Vital Signs Temperature 98.8 F 11/12/19 08:30 Pulse Rate 61 11/12/19 08:30 Respiratory Rate 19 11/12/19 08:30 Blood Pressure 135/83 11/12/19 08:30 O2 Sat by Pulse Oximetry (%) Laboratory Last Values WBC 3.6 K/mm3 (4.0-10.0) L 11/10/19 07:20 RBC 4.29 M/mm3 (4.00-5.60) 11/10/19 07:20 Hgb 12.9 GM/dL (11.7-16.9) 11/10/19 07:20 Hct 37.8 % (35.4-49) 11/10/19 07:20 MCV 88.0 fl (80-96) 11/10/19 07:20 MCH 30.1 pg (25.7-33.7) 11/10/19 07:20 MCHC 34.2 g/dl (32.0-35.9) 11/10/19 07:20 RDW 15.5 % (11.9-15.9) 11/10/19 07:20 Plt Count 214 K/MM3 (134-434) 11/10/19 07:20 MPV 8.0 fl (7.5-11.1) 11/10/19 07:20 Sodium 142 mmol/L (136-145) 11/10/19 07:20 Potassium 4.1 mmol/L (3.5-5.1) 11/10/19 07:20 Chloride 110 mmol/L (98-107) H 11/10/19 07:20 Carbon Dioxide 28 mmol/L (21-32) 11/10/19 07:20 Anion Gap 5 MMOL/L (8-16) L 11/10/19 07:20 BUN 17.6 mg/dL (7-18) 11/10/19 07:20 Creatinine 1.2 mg/dL (0.55-1.3) 11/10/19 07:20 Est GFR (CKD-EPI)AfAm 80.66 11/10/19 07:20 Est GFR (CKD-EPI)NonAf 69.59 11/10/19 07:20 Random Glucose 119 mg/dL (74-106) H 11/10/19 07:20 Calcium 8.5 mg/dL (8.5-10.1) 11/10/19 07:20 Total Bilirubin 0.4 mg/dL (0.2-1) 11/10/19 07:20 AST 40 U/L (15-37) H 11/10/19 07:20 ALT 41 U/L (13-61) 11/10/19 07:20 Alkaline Phosphatase 83 U/L (45-117) 11/10/19 07:20 Total Protein 7.1 g/dl (6.4-8.2) 11/10/19 07:20 Albumin 3.7 g/dl (3.4-5.0) 11/10/19 07:20 RPR Titer Nonreactive (NONREACTIVE) 11/10/19 07:20 - Treatment Hospital Course: Detox Protocol Followed, Detoxed Safely, Responded well, Discharged Condition Good Patient has Accepted a Rehab Referral to: declined - Medication Discharge Medications: Ambulatory Orders Amlodipine Besylate [Norvasc -] 10 mg PO DAILY 08/09/19 Buprenorphine/Naloxone [Suboxone 8Mg/2Mg Sl Film -] 1 each SL TID 11/09/19 Zolpidem Tartrate [Ambien] 10 mg PO HS 11/09/19 - Diagnosis (1) Alcohol dependence with uncomplicated withdrawal Current Visit: Yes Status: Chronic (2) Cocaine dependence Current Visit: Yes Status: Chronic Qualifiers: Substance use status: uncomplicated Qualified Code(s): F14.20 - Cocaine dependence, uncomplicated (3) Encounter for monitoring Suboxone maintenance therapy Current Visit: Yes Status: Chronic (4) Essential hypertension Current Visit: Yes Status: Chronic (5) Nicotine dependence Current Visit: Yes Status: Chronic Qualifiers: Nicotine product type: cigarettes Substance use status: uncomplicated Qualified Code(s): F17.210 - Nicotine dependence, cigarettes, uncomplicated - AMA Did Patient Leave Against Medical Advice: No
--- NOTE | 2019-11-12 10:29 | PN ---
[facility] Progress Note Note: pt became irrate, angry, disruptive on the unit, threatening, stating that if he doesn't get his suboxone now he will go and kill you all. Pt continues to state go suck my black sigrid you fucking bitch. security was immediately called/ initiated. the only counselor that came out to assist with diffusing the situation was the counseling telephone supervisor Odilia. The patient continued to state I am going to get you on the outside bitch and go suck all the dicks out there. Security escorted the pt off the unit.
[2019-11-13] MEDS ORDERED: LORazepam 0.5 MG TABLET PO ONE (05:00)
== END 2019-11-12 10:12 | disposition home or self-care (01) | DRG 773 ==
LOC: YASAS 09:54 → Y6N 12:04
PROVIDERS: ADMIT Allergy & Immunology; ATTEND Allergy & Immunology
PROC: HZ2ZZZZ Detoxification Services for Substance Abuse Treatment (ICD-10-PCS; principal; 2019-11-09)
DX: F10.230 Alcohol dependence with withdrawal, uncomplicated (principal); F11.20 Opioid dependence, uncomplicated; F14.20 Cocaine dependence, uncomplicated; F17.210 Nicotine dependence, cigarettes, uncomplicated; F91.8 Other conduct disorders; I10 Essential (primary) hypertension; R73.9 Hyperglycemia, unspecified; E66.9 Obesity, unspecified; Z68.39 Body mass index [BMI] 39.0-39.9, adult; Z91.013 Allergy to seafood; Z88.0 Allergy status to penicillin; Z88.8 Allergy status to other drugs, medicaments and biological substances
CPT/HCPCS: 36415; 80053; 85027; 86593

== ENCOUNTER 2021-02-03 15:52 | Inpatient (IN) | payer OTHER ==
[2021-02-03 17:56] VITALS: BMI 36.5
[2021-02-03] MEDS ORDERED: MAG HYDROX/AL HYDROX/SIMETH 30 ML UNIT-DOSE CUP PO PRN (20:48)
[2021-02-03] MEDS ORDERED: ONDANSETRON *ODT* 4 MG TABLET SL PRN (20:48)
[2021-02-03] MEDS ORDERED: MAGNESIUM CITRATE 300 ML BOTTLE PO PRN (20:48)
[2021-02-03] MEDS ORDERED: NALOXONE (NARCAN) HCL 4 MG/0.1 ML SPRAY NS PRN (20:48)
[2021-02-03] MEDS ORDERED: BISMUTH SUBSALICYLATE 524 MG/30 ML UD PO PRN (20:48)
[2021-02-03] MEDS ORDERED: P-EPHED 60MG/TRIPROLIDI 2.5MG TABLET PO PRN (20:48)
[2021-02-03] MEDS ORDERED: MENTHOL/PHENOL 1 EACH UD MM PRN (20:48)
[2021-02-03] MEDS ORDERED: IBUPROFEN 400 MG TABLET (FP) PO PRN (20:48)
[2021-02-03] MEDS ORDERED: METHOCARBAMOL 500 MG TABLET PO PRN (20:48)
[2021-02-03] MEDS ORDERED: ACETAMINOPHEN 325 MG TABLET (FP) PO PRN ×2 (20:48)
[2021-02-03] MEDS ORDERED: MAGNESIUM HYDROX 2400MG/30ML ORAL SUSPENSION 30 ML CUP PO PRN (20:48)
[2021-02-03] MEDS ORDERED: guaiFENesin 200 MG/10 ML 10 ML UNIT-DOSE CUPS PO PRN (20:48)
[2021-02-03] MEDS ORDERED: NALOXONE HCL 0.4 MG/ML VIAL IM PRN (20:48)
[2021-02-03] MEDS: MELATONIN 5 MG TABLETS PO SCH (22:58)
[2021-02-03] MEDS: THIAMINE HCL 100 MG TABLET (FP) PO SCH (22:58)
[2021-02-04] MEDS: PRENATAL VITAMINS W/ FOLIC ACID TABLET (FP) PO SCH (10:13)
[2021-02-04] MEDS: NICOTINE 21 MG/24 HOURS TOPICAL PATCH TD SCH (10:13)
[2021-02-04] MEDS: amLODIPine BESYLATE 10 MG TABLET (FP) PO SCH (10:14)
[2021-02-04] MEDS: METHADONE HCL 40 MG DISPERSABLE TABLET PO SCH (10:14)
[2021-02-04] MEDS: NICOTINE POLACRILEX 2 MG GUM BUC PRN ×2 (10:15→19:51)
[2021-02-04] MEDS ORDERED: diazePAM 5 MG TABLET PO PRN (10:40)
[2021-02-04 11:38] LABS: HEMATOCRIT 38.6 % (35.4-49); MCH 30.6 pg (25.7-33.7); MCHC 33.7 g/dl (32.0-35.9); MEAN CELL VOLUME 90.7 fl (80-96); MEAN PLT VOLUME 8.2 fl (7.5-11.1); PLATELET COUNT 240 K/MM3 (134-434); RBC 4.25 M/mm3 (4.00-5.60); RDW 14.7 % (11.9-15.9); WHITE BLOOD COUNT 4.2 K/mm3 (4.0-10.0)
[2021-02-04 11:53] LABS: ALBUMIN 3.5 g/dl (3.4-5.0); CALCIUM 8.7 mg/dL (8.5-10.1)
[2021-02-04 11:54] LABS: BLOOD UREA NITROGEN 13.7 mg/dL (7-18)
[2021-02-04 11:57] LABS: CREATININE 1.1 mg/dL (0.55-1.3)
[2021-02-04 11:58] LABS: BILIRUBIN,TOTAL 0.4 mg/dL (0.2-1); TOT PROT 6.9 g/dl (6.4-8.2)
[2021-02-04] MEDS: diazePAM 5 MG TABLET PO SCH ×3 (12:39→22:16)
[2021-02-04] MEDS: MELATONIN 5 MG TABLETS PO SCH (22:16)
[2021-02-04] MEDS: THIAMINE HCL 100 MG TABLET (FP) PO SCH (22:16)
[2021-02-05] MEDS: METHADONE HCL 40 MG DISPERSABLE TABLET PO SCH (05:15)
[2021-02-05] MEDS: diazePAM 5 MG TABLET PO SCH ×4 (05:15→22:18)
[2021-02-05] MEDS: amLODIPine BESYLATE 10 MG TABLET (FP) PO SCH (10:14)
[2021-02-05] MEDS: PRENATAL VITAMINS W/ FOLIC ACID TABLET (FP) PO SCH (10:14)
[2021-02-05] MEDS: NICOTINE 21 MG/24 HOURS TOPICAL PATCH TD SCH (10:15)
[2021-02-05] MEDS: NICOTINE POLACRILEX 2 MG GUM BUC PRN (13:51)
[2021-02-05] MEDS: THIAMINE HCL 100 MG TABLET (FP) PO SCH (22:18)
[2021-02-05] MEDS: MELATONIN 5 MG TABLETS PO SCH (22:18)
[2021-02-06] MEDS: METHADONE HCL 40 MG DISPERSABLE TABLET PO SCH (05:18)
[2021-02-06] MEDS: diazePAM 5 MG TABLET PO SCH ×3 (05:18→22:46)
[2021-02-06] MEDS: hydrOXYzine PAMOATE 25 MG CAPSULE (FP) PO PRN ×2 (05:19→22:45)
[2021-02-06] MEDS: PRENATAL VITAMINS W/ FOLIC ACID TABLET (FP) PO SCH (10:25)
[2021-02-06] MEDS: amLODIPine BESYLATE 10 MG TABLET (FP) PO SCH (10:25)
[2021-02-06] MEDS: NICOTINE 21 MG/24 HOURS TOPICAL PATCH TD SCH (10:26)
[2021-02-06] MEDS: NICOTINE POLACRILEX 2 MG GUM BUC PRN (19:15)
[2021-02-06] MEDS: MELATONIN 5 MG TABLETS PO SCH (22:45)
[2021-02-06] MEDS: THIAMINE HCL 100 MG TABLET (FP) PO SCH (22:45)
[2021-02-07] MEDS: METHADONE HCL 40 MG DISPERSABLE TABLET PO SCH (05:32)
[2021-02-07] MEDS ORDERED: diazePAM 5 MG TABLET PO SCH (06:00)
[2021-02-07 08:57] VITALS: BP 134/85; PULSE 81; TEMP 96.4
[2021-02-07] MEDS: amLODIPine BESYLATE 10 MG TABLET (FP) PO SCH (11:31)
[2021-02-07] MEDS: NICOTINE 21 MG/24 HOURS TOPICAL PATCH TD SCH (11:31)
[2021-02-07] MEDS: PRENATAL VITAMINS W/ FOLIC ACID TABLET (FP) PO SCH (11:31)
[2021-02-07] MEDS ORDERED: chlordiazePOXIDE HCL 25 MG CAPSULE PO PRN (13:00)
[2021-02-07 14:11] LABS: SARS-CoV-2 NAA Not Detected (Not Detected)
[2021-02-08] MEDS ORDERED: diazePAM 5 MG TABLET PO ONE (06:00)
== END 2021-02-07 09:15 | disposition other institution (70) | DRG 773 ==
LOC: YASAS 15:52 → Y3N 22:08
PROVIDERS: ADMIT Allergy & Immunology; ATTEND Allergy & Immunology
PROC: HZ2ZZZZ Detoxification Services for Substance Abuse Treatment (ICD-10-PCS; principal; 2021-02-03)
DX: F10.230 Alcohol dependence with withdrawal, uncomplicated (principal); F11.20 Opioid dependence, uncomplicated; F13.20 Sedative, hypnotic or anxiolytic dependence, uncomplicated; F17.210 Nicotine dependence, cigarettes, uncomplicated; F19.24 Other psychoactive substance dependence with psychoactive substance-induced mood disorder; I10 Essential (primary) hypertension; Z86.11 Personal history of tuberculosis; Z88.0 Allergy status to penicillin; Z91.013 Allergy to seafood; Z59.0 Homelessness
CPT/HCPCS: 36415; 80053; 85027; 86780; 93005; 93010; C9803; U0003; U0005

== ENCOUNTER 2024-07-17 15:30 | Inpatient (IN) | payer OTHER ==
[2024-07-17 15:59] VITALS: BMI 41.6
[2024-07-17] MEDS ORDERED: ACETAMINOPHEN 325 MG TABLET (FP) PO PRN (18:46)
[2024-07-17] MEDS ORDERED: guaiFENesin 600 MG TABLET.ER (FP) PO PRN (18:46)
[2024-07-17] MEDS ORDERED: NALOXONE (NARCAN) HCL 4 MG/0.1 ML SPRAY NS PRN (18:46)
[2024-07-17] MEDS ORDERED: BENZONATATE 200 MG CAPSULE PO PRN (18:46)
[2024-07-17] MEDS ORDERED: POLYETHYLENE GLYCOL (HEALTHYLAX) 3350 17 GM PACKET PO PRN (18:46)
[2024-07-17] MEDS ORDERED: BENZOCAINE/MENTHOL (CHLORASEPTIC ) LOZENGE MM PRN (18:46)
[2024-07-17] MEDS ORDERED: MAGNESIUM HYDROX 2400MG/30ML ORAL SUSPENSION 30 ML CUP PO PRN (18:46)
[2024-07-17] MEDS ORDERED: NALOXONE (NYS OPIOID OVERDOSE PROGRAM) 4 MG/0.1 ML SPRAY NS PRN (18:46)
[2024-07-17] MEDS ORDERED: P-EPHED 60MG/TRIPROLIDI 2.5MG TABLET PO PRN (18:46)
[2024-07-17] MEDS: MELATONIN 5 MG TABLETS PO SCH (21:34)
[2024-07-17] MEDS: THIAMINE 100 MG TABLET PO SCH (21:34)
[2024-07-17] MEDS ORDERED: TUBERCULIN PPD 5 TU/0.1ML VIAL ID ONE ×2 (21:35→22:02)
[2024-07-17] MEDS: TUBERCULIN PPD 5 TU/0.1ML SYRINGE (IN PATIENT USE ONLY) ID ONE (21:49)
[2024-07-18] MEDS: metFORMIN HCL 500 MG TABLET (FP) PO SCH (06:57)
[2024-07-18] MEDS ORDERED: BISMUTH SUBSALICYLATE 262 MG/15 ML BTL PO PRN (10:29)
[2024-07-18] MEDS ORDERED: DICYCLOMINE HCL 10 MG CAPSULE PO PRN (10:29)
[2024-07-18] MEDS ORDERED: METHOCARBAMOL 500 MG TABLET PO PRN (10:29)
[2024-07-18] MEDS: methaDONE HCL 40 MG DISPERSABLE TABLET PO SCH (10:53)
[2024-07-18] MEDS: SERTRALINE HCL 50 MG TABLET (FP) PO SCH (10:54)
[2024-07-18] MEDS: PRENATAL VITAMINS W/ FOLIC ACID TABLET (FP) PO SCH (10:54)
[2024-07-18] MEDS: NICOTINE POLACRILEX 2 MG GUM BUC PRN (12:51)
[2024-07-18] MEDS: BACLOFEN 10 MG TABLET (FP) PO SCH (13:23)
[2024-07-18 15:15] LABS: HEMATOCRIT 49.3 % (35.4-49); HEMOGLOBIN 16.4 GM/dL (11.7-16.9); MCHC 33.3 g/dl (32.0-35.9); MEAN CELL VOLUME 90.3 fl (80-96); MEAN PLT VOLUME 8.9 fl (7.5-11.1); PLATELET COUNT 199 10^3/uL (134-434); RBC 5.46 M/mm3 (4.00-5.60); RDW 14.8 % (11.9-15.9)
[2024-07-18 16:12] LABS: POTASSIUM 4.4 mmol/L (3.5-5.1)
[2024-07-18 16:14] LABS: CALCIUM 9.7 mg/dL (8.5-10.1)
[2024-07-18 16:15] LABS: ALBUMIN 3.6 g/dl (3.4-5.0); BLOOD UREA NITROGEN 13.4 mg/dL (7-18)
[2024-07-18 16:20] LABS: BILIRUBIN,TOTAL 0.7 mg/dL (0.2-1); TOT PROT 7.2 g/dl (6.4-8.2)
[2024-07-18 17:46] LABS: URINE APPEARANCE CLEAR; URINE BILIRUBIN NEGATIVE (NEGATIVE); URINE COLOR YELLOW; URINE GLUCOSE (UA) NEGATIVE (NEGATIVE); URINE KETONE TRACE (NEGATIVE); URINE LEUK ESTERASE NEGATIVE (NEGATIVE); URINE NITRITE NEGATIVE (NEGATIVE); URINE PROTEIN TRACE (NEGATIVE); URINE UROBILINOGEN 0.2 mg/dL (0.2-1.0)
[2024-07-18] MEDS: traZODone HCL 100 MG TABLET (FP) PO SCH (23:29)
[2024-07-19] MEDS: methaDONE HCL 10 MG TABLET PO ONE (10:30)
[2024-07-19] MEDS ORDERED: TUBERCULIN PPD 5 TU/0.1ML VIAL ID ONE (14:45)
[2024-07-19 17:45] LABS: MAGNESIUM 1.8 mg/dL (1.8-2.4)
[2024-07-19 18:41] LABS: HIV INTERPRETATION NEGATIVE (NEGATIVE)
[2024-07-20] MEDS ORDERED: methaDONE HCL 40 MG DISPERSABLE TABLET PO SCH (06:00)
[2024-07-20] MEDS: methaDONE 40 MG, methaDONE 10 MG PO SCH (06:35)
[2024-07-20 12:55] LABS: PROTHROMBIN TIME (PATIENT) 11.5 SEC (9.7-13.0)
[2024-07-21] MEDS: ONDANSETRON *ODT* 4 MG TABLET SL PRN (07:30)
[2024-07-21] MEDS: TRIMETHOBENZAMIDE HCL 200MG/2ML INJ IM ONE ×2 (10:32→10:39)
[2024-07-23] MEDS ORDERED: methaDONE HCL 40 MG DISPERSABLE TABLET PO SCH (06:00)
[2024-07-24] MEDS: methaDONE HCL 10 MG TABLET PO SCH (18:03)
[2024-07-26] MEDS: VITAMINS A AND D TOPICAL OINTMENT TP SCH (17:19)
[2024-07-27] MEDS: MAG HYDROX/AL HYDROX/SIMETH 30 ML UNIT-DOSE CUP PO PRN (07:33)
[2024-07-27] MEDS: IBUPROFEN 600 MG TABLET (FP) PO PRN (11:03)
[2024-07-29] MEDS: NICOTINE POLACRILEX 2 MG LOZENGE BC PRN (11:29)
[2024-07-29] MEDS: methaDONE HCL 10 MG TABLET PO SCH (17:02)
[2024-07-30] MEDS: VARENICLINE TARTRATE 0.5 MG TAB PO SCH (15:50)
[2024-07-31] MEDS: TOLNAFTATE 1% CREAM 15 GM TUBE TP SCH (21:49)
[2024-08-03] MEDS: VARENICLINE TARTRATE 0.5 MG TAB PO SCH (11:26)
[2024-08-03] MEDS ORDERED: diazePAM 2 MG TABLET PO PRN (13:04)
[2024-08-04] MEDS: IBUPROFEN 400 MG TABLET (FP) PO PRN (06:51)
[2024-08-05] MEDS: cloNIDine HCL 0.1 MG TABLET PO PRN (06:52)
[2024-08-06] MEDS: VARENICLINE TARTRATE 1 MG TAB PO SCH (09:23)
[2024-08-06] MEDS: DOCUSATE SODIUM 100 MG CAPSULE (FP) PO PRN (21:08)
[2024-08-07] MEDS: LOPERAMIDE HCL 2 MG CAPSULE PO PRN (13:50)
[2024-08-08] MEDS: traZODone HCL 50 MG TABLET (FP) PO SCH (21:55)
[2024-08-09] MEDS: hydrOXYzine PAMOATE 25 MG CAPSULE (FP) PO PRN (14:08)
[2024-08-10] MEDS: SUVOREXANT 10 MG TABLET PO PRN (21:54)
[2024-08-12] MEDS ORDERED: NALTREXONE HCL 50 MG TABLET PO ONE (10:00)
[2024-08-12] MEDS: NALTREXONE HCL 50 MG TABLET PO ONE (11:00)
[2024-08-12] MEDS: NALTREXONE HCL 50 MG TABLET PO SCH (15:25)
[2024-08-12] MEDS ORDERED: BENZONATATE 200 MG CAPSULE PO PRN (16:29)
[2024-08-12] MEDS ORDERED: guaiFENesin 600 MG TABLET.ER (FP) PO PRN (16:29)
[2024-08-12] MEDS ORDERED: DICYCLOMINE HCL 10 MG CAPSULE PO PRN (16:29)
[2024-08-12] MEDS ORDERED: BISMUTH SUBSALICYLATE 524 MG/30 ML PO PRN (16:29)
[2024-08-12] MEDS: TRIMETHOBENZAMIDE HCL 200MG/2ML INJ IM ONE (21:37)
[2024-08-12] MEDS ORDERED: NALTREXONE HCL 50 MG TABLET PO SCH (22:00)
[2024-08-13] MEDS ORDERED: NALTREXONE MICROSPHERES (VIVITROL) 380 MG DISP.SYRIN IM ONE (06:00)
[2024-08-15] MEDS: VITAMINS A AND D TOPICAL OINTMENT TP PRN (09:46)
[2024-08-16] MEDS: BUPRENORPHINE/NALOXONE 2 MG/0.5 MG FILM PACKET SL SCH (11:06)
[2024-08-16] MEDS ORDERED: INSULIN (NOVOLOG) ASPART 100 UNITS/ML 10ML VIAL ONE (22:56)
[2024-08-17] MEDS: BUPRENORPHINE/NALOXONE 4 MG/1 MG FILM PACKET SL SCH (09:28)
[2024-08-17] MEDS ORDERED: INSULIN (NOVOLOG) ASPART 100 UNITS/ML 10ML VIAL ONE (10:37)
[2024-08-18] MEDS: BUPRENORPHINE/NALOXONE 8 MG/2 MG FILM PACKET SL SCH (10:08)
[2024-08-18 21:59] VITALS: RESP 18
[2024-08-19 07:03] VITALS: BP 122/80; PULSE 86; TEMP 97.6
[2024-08-19] MEDS: NALOXONE (NYS OPIOID OVERDOSE PROGRAM) 4 MG/0.1 ML SPRAY NS SCH (08:57)
== END 2024-08-19 09:30 | disposition home or self-care (01) | DRG 772 ==
LOC: YASAS 15:30 → Y3E 19:30
PROVIDERS: ADMIT Allergy & Immunology; ATTEND Psychiatry & Neurology Pain Medicine
PROC: HZ42ZZZ Group Counseling for Substance Abuse Treatment, Cognitive-Behavioral (ICD-10-PCS; principal; 2024-07-17)
DX: F11.20 Opioid dependence, uncomplicated (principal); F14.20 Cocaine dependence, uncomplicated; F13.10 Sedative, hypnotic or anxiolytic abuse, uncomplicated; F17.210 Nicotine dependence, cigarettes, uncomplicated; I10 Essential (primary) hypertension; E11.9 Type 2 diabetes mellitus without complications; Z79.84 Long term (current) use of oral hypoglycemic drugs; B35.8 Other dermatophytoses; L85.3 Xerosis cutis; M54.50 Low back pain, unspecified; G89.29 Other chronic pain; R74.01 Elevation of levels of liver transaminase levels; Z86.11 Personal history of tuberculosis; Z88.0 Allergy status to penicillin
CPT/HCPCS: 36415; 71045-TC-FY; 80053; 80061; 80305; 80307; 81003; 82140; 82652; 82962; 83735; 85027; 85610; 86780; 86803; 87389; 87811; 93005; 93010; J0475; Q0162